=== PATIENT | female | born 1945 | race Caucasian/White ===

== ENCOUNTER 2016-11-06 16:01 | Emergency (ER) | payer MEDICARE, OTHER ==
[~2016-11-06] VITALS: Ht 162.6 cm; Wt 84.8 kg
[~2016-11-06 16:01] MED LIST: ALBUTEROL2.5 MG/3 M INH; ASPIR 8181 MG PO; AZITHROMYCIN250 MG PO; BUDEPRION SR150 MG PO; CELEXA40 MG PO; CIPRO500 MG PO; CLONAZEPAM1 MG PO; DIFLUCAN150 MG PO; EPIPEN JR0.15 MG/0.; ESTRADIOL0.5 MG PO; FLAGYL500 MG PO; GABAPENTIN300 MG PO; GEMFIBROZIL600 MG PO; IBUPROFEN600 MG PO; IPRAT-ALBUT 0.5-3 ML INH; MAGNESIUM OXID500 MG PO; MIRAPEX1.5 MG PO; MULTI VITAMIN1 EACH PO; NITROGLYCERIN0.4 MG SL; NORCO 5-325 TA1 EACH PO; OXYCODONE-ACET1 EAC1 PO; PERCOCET 5-3251 EACH PO; PREDNISONE20 MG PO; PROAIR HFA8.5 GM IH; PROVERA2.5 MG PO; SEPTRA DS TABL1 EACH PO; TIROSINT100 MCG PO; ZESTORETIC PO
[2017-02-09] MEDS ORDERED: GLIPIZIDE ER5 MG PO (06:07)
== END 2016-11-06 16:16 | disposition home or self-care (01) ==
LOC: ED 16:01
DX: M25.562 Pain in left knee (principal); Z00.8 Encounter for other general examination

== ENCOUNTER 2016-11-22 16:41 | Emergency (ER) | payer MEDICARE, OTHER ==
[~2016-11-22] VITALS: Ht 162.6 cm; Wt 84.8 kg
[2016-11-22] MEDS ORDERED: NORCO 5-325 TA1 EACH PO (19:43)
[2016-11-22] MEDS ORDERED: GENTAMICIN SULFA5 ML OD (19:43)
[2016-11-23] MEDS ORDERED: ERYTHROMYCIN1 GM OP (10:18)
[2016-11-23] MEDS ORDERED: PERCOCET 5-3251 EACH PO (10:18)
[2017-02-09] MEDS ORDERED: GLIPIZIDE ER5 MG PO (06:07)
== END 2016-11-22 17:00 | disposition home or self-care (01) ==
LOC: ED 16:41
DX: H57.11 Ocular pain, right eye (principal); Z00.8 Encounter for other general examination

== ENCOUNTER 2016-11-22 17:45 | Emergency (ER) | payer MEDICARE, OTHER ==
[~2016-11-22] VITALS: Ht 162.6 cm; Wt 84.8 kg
[2016-11-22] MEDS ORDERED: NORCO 5-325 TA1 EACH PO (19:43)
[2016-11-22] MEDS ORDERED: GENTAMICIN SULFA5 ML OD (19:43)
[2016-11-23] MEDS ORDERED: ERYTHROMYCIN1 GM OP (10:18)
[2016-11-23] MEDS ORDERED: PERCOCET 5-3251 EACH PO (10:18)
[2017-02-09] MEDS ORDERED: GLIPIZIDE ER5 MG PO (06:07)
== END 2016-11-22 19:51 | disposition home or self-care (01) ==
LOC: ED 17:45
DX: H57.11 Ocular pain, right eye (principal); J45.909 Unspecified asthma, uncomplicated; I10 Essential (primary) hypertension; E03.9 Hypothyroidism, unspecified; F17.200 Nicotine dependence, unspecified, uncomplicated; Z90.49 Acquired absence of other specified parts of digestive tract; Z90.710 Acquired absence of both cervix and uterus; Z91.030 Bee allergy status; Z88.8 Allergy status to other drugs, medicaments and biological substances; Z79.899 Other long term (current) drug therapy
CPT/HCPCS: 99283

== ENCOUNTER 2016-11-23 09:12 | Emergency (ER) | payer MEDICARE, OTHER ==
[~2016-11-23] VITALS: Ht 162.6 cm; Wt 84.8 kg
[~2016-11-23 09:12] MED LIST changes: +GENTAMICIN SULFA5 ML OD
[2016-11-23] MEDS ORDERED: PERCOCET 5-3251 EACH PO (10:18)
[2016-11-23] MEDS ORDERED: ERYTHROMYCIN1 GM OP (10:18)
[2017-02-09] MEDS ORDERED: GLIPIZIDE ER5 MG PO (06:07)
== END 2016-11-23 10:27 | disposition home or self-care (01) ==
LOC: ED 09:12
DX: S05.01XA Injury of conjunctiva and corneal abrasion without foreign body, right eye, initial encounter (principal); I10 Essential (primary) hypertension; E03.9 Hypothyroidism, unspecified; F17.200 Nicotine dependence, unspecified, uncomplicated; Z90.49 Acquired absence of other specified parts of digestive tract; Z90.710 Acquired absence of both cervix and uterus; Z91.038 Other insect allergy status; Z79.2 Long term (current) use of antibiotics; Z79.899 Other long term (current) drug therapy; Z88.8 Allergy status to other drugs, medicaments and biological substances; X58.XXXA Exposure to other specified factors, initial encounter
CPT/HCPCS: 99283

== ENCOUNTER 2018-08-20 17:31 | Emergency (ER) | payer MEDICARE, OTHER ==
[~2018-08-20] VITALS: Ht 162.6 cm; Wt 89.4 kg
[~2018-08-20 17:31] MED LIST changes: +ERYTHROMYCIN1 GM OP; +GLIPIZIDE ER5 MG PO
--- OUTSIDE RECORDS SUMMARY | 2018-08-20 17:34 | XMS ---
PreManage Notification: ALFREDO CUELLAR Security Insurance Administrator Events No recent Security Events currently on file CRITERIA MET - Group Notification - PDMP CARE PROVIDERS Mary Baker MD Primary Care 03/29/2008-Current PHONE: Unknown Aj Zazueta Current PHONE: Unknown [facility] Current Orthopedic Surgery \T\ [facility] PHONE: Unknown Shawn has no Care Guidelines for this patient. E.D. VISIT COUNT (12 MO.) 1 [facility] TOTAL 1 NOTE: Visits indicate total known visits. ED/UCC VISIT TRACKING (12 MO.) 08/20/2018 17:32 [facility] TYPE: Emergency COMPLAINT: - FALL/LEFT KNEE PAIN INPATIENT VISIT TRACKING (12 MO.) No inpatient visits to display in this time frame [id number]
[2018-08-20] MEDS ORDERED: NORCO 5-325 TA1 EACH PO (18:46)
== END 2018-08-20 19:05 | disposition home or self-care (01) ==
LOC: ED 17:31
DX: S89.92XA Unspecified injury of left lower leg, initial encounter (principal); I10 Essential (primary) hypertension; E03.9 Hypothyroidism, unspecified; F17.200 Nicotine dependence, unspecified, uncomplicated; Z90.49 Acquired absence of other specified parts of digestive tract; Z90.710 Acquired absence of both cervix and uterus; Z91.030 Bee allergy status; Z88.8 Allergy status to other drugs, medicaments and biological substances; Z79.899 Other long term (current) drug therapy; W18.30XA Fall on same level, unspecified, initial encounter
CPT/HCPCS: 73560; 96372; 99283-25; J1170

== ENCOUNTER 2018-09-04 14:31 | Emergency (ER) | payer MEDICARE, OTHER ==
[~2018-09-04] VITALS: Ht 162.6 cm; Wt 89.4 kg
--- OUTSIDE RECORDS SUMMARY | 2018-09-04 14:34 | XMS ---
PreManage Notification: ALFREDO CUELLAR Security Manager Express Events No recent Security Events currently on file CRITERIA MET - Group Notification - PDMP - [facility] - 2 Visits in 30 Days CARE PROVIDERS Mary Baker MD Primary Care 03/29/2008-Current PHONE: Unknown Aj Zazueta Current PHONE: Unknown [facility] Current Orthopedic Surgery \T\ F[facility]ure Clinic PHONE: Unknown Shawn has no Care Guidelines for this patient. E.D. VISIT COUNT (12 MO.) 2 [facility] TOTAL 2 NOTE: Visits indicate total known visits. ED/UCC VISIT TRACKING (12 MO.) 09/04/2018 14:31 [facility] TYPE: Emergency COMPLAINT: - FALL 08/20/2018 17:32 [facility] TYPE: Emergency COMPLAINT: - FALL/LEFT KNEE PAIN DIAGNOSES: - Nicotine dependence, unspecified, uncomplicated - Allergy status to other drugs, medicaments and biological substances status - Unspecified injury of left lower leg, initial encounter - Other oil heaterman (current) drug therapy - Fall on same level, unspecified, initial encounter - Acquired absence of both cervix and uterus - Hypothyroidism, unspecified - Acquired absence of other specified parts of digestive tract - Bee allergy status - Pain in left knee - Essential (primary) hypertension INPATIENT VISIT TRACKING (12 MO.) No inpatient visits to display in this time frame [id number]
[2018-09-04] MEDS ORDERED: PERCOCET 5-3251 EACH PO (17:43)
== END 2018-09-04 18:10 | disposition home or self-care (01) ==
LOC: ED 14:31
DX: S46.912A Strain of unspecified muscle, fascia and tendon at shoulder and upper arm level, left arm, initial encounter (principal); S80.02XA Contusion of left knee, initial encounter; S80.01XA Contusion of right knee, initial encounter; I10 Essential (primary) hypertension; F17.200 Nicotine dependence, unspecified, uncomplicated; E03.9 Hypothyroidism, unspecified; Z90.49 Acquired absence of other specified parts of digestive tract; Z90.710 Acquired absence of both cervix and uterus; Z88.8 Allergy status to other drugs, medicaments and biological substances; Z91.030 Bee allergy status; W10.9XXA Fall (on) (from) unspecified stairs and steps, initial encounter
CPT/HCPCS: 70450; 73030; 73560; 96372; 99284-25; J1885

== ENCOUNTER 2019-04-03 04:02 | Emergency (ER) | payer MEDICARE, OTHER ==
[~2019-04-03] VITALS: Ht 162.6 cm; Wt 89.4 kg
[~2019-04-03 04:02] MED LIST changes: +AMITRIPTYLINE150 MG PO; +CELEBREX200 MG PO; +CELECOXIB200 MG PO; +DULOXETINE HCL30 MG PO; +EFFEXOR XR75 MG PO; +LEVOTHYROXINE100 MCG PO; +LIPITOR10 MG PO; +LISINOPRIL-HCT1 EACH PO; +MIRAPEX ER1.5 MG PO; +NALTREXONE HCL5 GM PO; +NICORETTE4 M2 BUCCAL; +ONDANSETRON HCL4 MG PO; +OXYCODONE HCL5 MG PO; +PANTOPRAZOLE SO40 MG PO; +VENLAFAXINE HC150 MG PO; +VITAMIN D32000 UNI1 PO
--- OUTSIDE RECORDS SUMMARY | 2019-04-03 04:04 | XMS ---
PreManage Notification: ALFREDO CUELLAR Security Crop Research Scientist Events No recent Security Events currently on file CRITERIA MET - Group Notification - [facility] - Has [facility] Guidelines - PDMP CARE PROVIDERS Artemio Nielson Internal Medicine: Pulmonary Disease 09/05/2018-Current PHONE: Unknown Mary Baker MD Primary Care 03/29/2008-Current PHONE: Unknown Aj Zazueta MD PHONE: Unknown [facility] Current Orthopedic Surgery \T\ [facility] PHONE: Unknown Shawn has no Care Guidelines for this patient. Care History Medical/Surgical 09/05/[address] [facility] - Patient is currently established with [facility]. If patient is seen in the ED during business hours. Please contact CHWs at [facility]. Care Recommendation: This patient has had 5 or more Emergency Department visits in the last 12 months.\T\nbsp; Patient requires education on the scope and purpose of the ED as an acute care provider not a Primary Care Provider and should not be utilized for chronic conditions.\T\nbsp; These are guidelines and the provider should exercise clinical judgment when providing care. E.D. VISIT COUNT (12 MO.) 3 [facility]. TOTAL 3 NOTE: Visits indicate total known visits. ED/UCC VISIT TRACKING (12 MO.) 04/03/2019 04:02 [facility] TYPE: Emergency COMPLAINT: - FALL 09/04/2018 14:31 [facility] TYPE: Emergency COMPLAINT: - FALL DIAGNOSES: - Contusion of left knee, initial encounter - Pain in right knee - Fall (on) (from) unspecified stairs and steps, init encntr - Acquired absence of both cervix and uterus - Nicotine dependence, unspecified, uncomplicated - Strain unsp musc/fasc/tend at shldr/up arm, left arm, init - Allergy status to oth drug/meds/biol subst status - Essential (primary) hypertension - Contusion of right knee, initial encounter - Acquired absence of other specified parts of digestive tract - Bee allergy status - Hypothyroidism, unspecified 08/20/2018 17:32 [facility] TYPE: Emergency COMPLAINT: - FALL/LEFT KNEE PAIN DIAGNOSES: - Nicotine dependence, unspecified, uncomplicated - Allergy status to oth drug/meds/biol subst status - Unspecified injury of left lower leg, initial encounter - Other shelter (current) drug therapy - Fall on same level, unspecified, initial encounter - Acquired absence of both cervix and uterus - Hypothyroidism, unspecified - Acquired absence of other specified parts of digestive tract - Bee allergy status - Pain in left knee - Essential (primary) hypertension INPATIENT VISIT TRACKING (12 MO.) No inpatient visits to display in this time frame [id number]
[2019-04-03] MEDS ORDERED: NORCO 5-325 TA1 EACH PO (04:35)
== END 2019-04-03 04:45 | disposition home or self-care (01) ==
LOC: ED 04:02
DX: S93.402A Sprain of unspecified ligament of left ankle, initial encounter (principal); X50.9XXA Other and unspecified overexertion or strenuous movements or postures, initial encounter; I10 Essential (primary) hypertension; J45.909 Unspecified asthma, uncomplicated; E03.9 Hypothyroidism, unspecified; F17.200 Nicotine dependence, unspecified, uncomplicated; Z88.8 Allergy status to other drugs, medicaments and biological substances; Z91.030 Bee allergy status; Z79.899 Other long term (current) drug therapy
CPT/HCPCS: 73610; 99283

== ENCOUNTER 2019-04-07 19:01 | Emergency (ER) | payer MEDICARE, OTHER ==
[~2019-04-07] VITALS: Ht 162.6 cm; Wt 89.4 kg
--- OUTSIDE RECORDS SUMMARY | 2019-04-07 19:04 | XMS ---
PreManage Notification: ALFREDO CUELLAR Security Communications Engineering Technician Events No recent Security Events currently on file CRITERIA MET - Group Notification - [facility] - Has Care Guidelines - PDMP - [facility] - 2 Visits in 30 Days CARE PROVIDERS Artemio Nielson Internal Medicine: Pulmonary Disease 09/05/2018-Current PHONE: Unknown Mary Baker MD Primary Care 03/29/2008-Current PHONE: Unknown Aj Zazueta MD PHONE: Unknown [facility] Current Orthopedic Surgery \T\ [facility] PHONE: Unknown Shawn has no Care Guidelines for this patient. Care History Medical/Surgical 04/03/2019 [facility] Appropriate use of ED.\T\nbsp;\T\nbsp;Patient\T\nbsp;still needs to schedule follow\T\nbsp;up with PCP. \T\nbsp; 09/05/2018 [facility] - Patient is currently established with [facility]. If patient is seen in the ED during business hours. Please contact CHWs at [facility]. Care Recommendation: This patient has had 5 [...] providing care. E.D. VISIT COUNT (12 MO.) 4 [facility]. TOTAL 4 NOTE: Visits indicate total known visits. ED/UCC VISIT TRACKING (12 MO.) 04/07/2019 19:01 [facility] TYPE: Emergency COMPLAINT: - LEFT KNEE PAIN/INJURY 04/03/2019 04:02 [facility] TYPE: Emergency COMPLAINT: - FALL DIAGNOSES: - Essential (primary) hypertension - Other long goods drier (current) drug therapy - Hypothyroidism, unspecified - Other and unspecified ovrexrtn or strnous move/pstr, init - Pain in left ankle and joints of left foot - Sprain of unspecified ligament of left ankle, init encntr - Unspecified asthma, uncomplicated - Allergy status to oth drug/meds/biol subst status - Nicotine dependence, unspecified, uncomplicated - Bee allergy status 09/04/2018 14:31 [facility] TYPE: Emergency [...] allergy status - Hypothyroidism, unspecified 08/20/2018 17:[address] [facility] TYPE: Emergency COMPLAINT: - FALL/LEFT KNEE PAIN DIAGNOSES: - Nicotine dependence, unspecified, uncomplicated - Allergy status to oth drug/meds/biol subst status - Unspecified injury of left lower leg, initial encounter - Other group home (current) drug therapy - Fall on same level, unspecified, initial encounter - Acquired absence of both cervix and uterus - Hypothyroidism, unspecified - Acquired absence of other specified parts of digestive tract - Bee allergy status - Pain in left knee - Essential (primary) hypertension INPATIENT VISIT TRACKING (12 MO.) No inpatient visits to display in this time frame [id number]
[2019-04-07] MEDS ORDERED: HYDROCHLOROTH12.5 M1 PO (19:24)
== END 2019-04-07 20:29 | disposition home or self-care (01) ==
LOC: ED 19:01
DX: S80.02XA Contusion of left knee, initial encounter (principal); W18.30XA Fall on same level, unspecified, initial encounter; I10 Essential (primary) hypertension; E03.9 Hypothyroidism, unspecified; F17.200 Nicotine dependence, unspecified, uncomplicated; Z88.8 Allergy status to other drugs, medicaments and biological substances; Z91.030 Bee allergy status; Z79.899 Other long term (current) drug therapy
CPT/HCPCS: 73560; 99283-25

== ENCOUNTER 2019-09-14 18:09 | Emergency (ER) | payer MEDICARE, OTHER ==
[~2019-09-14] VITALS: Ht 162.6 cm; Wt 84.8 kg
--- OUTSIDE RECORDS SUMMARY | ~2019-09-14 | XMS | Encounter Summary ---
Demographics + + + | Address | [address] | | | [place] [address] | + + + | Home Phone | | + + + | Preferred Language | Unknown | + + + | Marital Status | | + + + | Hoahaoism Affiliation | [id number] | + + + | Race | Unknown | + + + | Ethnic Group | Unknown | + + + Author + + + | Author | [facility] | | | and [place] | + + + | Organization | [facility] | | | and [place] | + + + | Address | Unknown | + + + | Phone | Unavailable | + + + Support + + +---------+ + | Name | Relationship | Address | Phone | + + +---------+ + | Kamille Doshi | ECON | Unknown | | + + +---------+ + | Jordi Hogue | ECON | Unknown | | + + +---------+ + Care Team Providers + +------+ + | Care Insulation Worker Furnace Installer Name | Role | Phone | + +------+ + | Isidra Renteria PA-C | PCP | | + +------+ + Encounter Details +--------+ + + + + | Date | Type | Department | Care Team | Description | +--------+ + + + + | 03/18/ | Hospital | [facility] | Lionel Michelle, | S/P lumbar fusion | | 2017 | Encounter | [facility] [address] | PA-C [address] | | | | | [place] | [address] [place] | | | | | [place] [address] | [place] [address] | | | | | [phone] | [phone] | | | | | | | | +--------+ + + + + Social History + + + +--------+ + | Tobacco Use | Types | Packs/Day | Years | Date | | | | | Used | | + + + +--------+ + | Former Smoker | Cigarettes | 0.5 | 6 | 01/24/2009 - | | | | | | 01/24/2015 | + + + +--------+ + + +---+---+---+ | Smokeless Tobacco: | | | | | Never Used | | | | + +---+---+---+ + + +---------+ + | Alcohol Use | Drinks/Week | oz/Week | Comments | + + +---------+ + | Yes | 0 Standard drinks | 0.0 | couple times per | | | or equivalent | | year | + + +---------+ + + + + | Sex Assigned at | Date Recorded | | | | + + + | Not on file | | + + + documented as of this encounter Medications at Time of Discharge + + + +---------+ + + | Medication | Sig | Dispensed | Refills | Start | End Date | | | | | | Date | | + + + +---------+ + + | atorvaSTATin | Take 40 mg by mouth | | 0 | 08/15/19 | | | (LIPITOR) 40 mg | nightly. | | | 16 | | | tablet | | | | | | + + + +---------+ + + | citalopram | Take 20 mg by mouth | | 0 | | | | (CELEXA) 40 mg | Daily. | | | | | | tablet | | | | | | + + + +---------+ + + | diazePAM (VALIUM) | Take 1 tablet by | 90 | 0 | 12/26/19 | | | 5 mg tablet | mouth every 6 hours | tablet | | 16 | | | | as needed. | | | | | + + + +---------+ + + | DULoxetine | Take 1 capsule by | 30 | 2 | 03/18/19 | | | (CYMBALTA) [address] | mouth Daily. | capsule | | 17 | | | capsule | | | | | | + + + +---------+ + + | EPINEPHrine | Inject 0.3 mg into | | 0 | | | | (EPIPEN) 0.3 mg/0.3 | the muscle as needed | | | | | | mL injection | for Anaphylaxis. | | | | | + + + +---------+ + + | estradiol | Take 0.5 mg by mouth | | 0 | | | | (ESTRACE) 0.5 mg | Daily. | | | | | | tablet | | | | | | + + + +---------+ + + | fentaNYL | Place 1 patch onto | 10 | 1 | 03/18/19 | | | (DURAGESIC) 50 | the skin every 72 | patch | | 17 | | | mcg/hr | hours. | | | | | + + + +---------+ + + | gemfibrozil | Take 600 mg by mouth | | 0 | | | | (LOPID) 600 mg | Daily. | | | | | | tablet | | | | | | + + + +---------+ + + | | Take 25 mg by mouth | | 0 | 08/19/20 | | | hydrochlorothiazide | Daily. | | | 16 | | | 25 mg tablet | | | | | | + + + +---------+ + + | lactulose 10 g/15 | Take 30 mLs by mouth | 240 mL | 2 | 12/05/19 | | | mL solution | 2 times daily. For | | | 16 | | | | constipation | | | | | + + + +---------+ + + | levothyroxine | Take 100 mcg by | | 0 | | | | (SYNTHROID, | mouth Daily. | | | | | | LEVOTHROID) 100 mcg | | | | | | | tablet | | | | | | + + + +---------+ + + | | Take 1 tablet by | | 0 | | | | lisinopril-hydrochlo | mouth Daily. | | | | | | rothiazide | | | | | | | (PRINZIDEZESTORETIC | | | | | | | ) 10-12.5 MG per | | | | | | | tablet | | | | | | + + + +---------+ + + | nitroglycerin | Place 0.4 mg under | | 0 | | | | (NITROSTAT) 0.4 mg | the tongue every 5 | | | | | | SL tablet | minutes as needed | | | | | | | for Chest pain | | | | | | | (Place 1 tablet | | | | | | | under the tounge at | | | | | | | onset chest pain. | | | | | | | May repeat in 5 | | | | | | | minutes. Call 911 if | | | | | | | not resolved afer | | | | | | | 2nd dose.). | | | | | + + + +---------+ + + | | Take 1-2 tablets by | 120 | 1 | 03/18/19 | | | oxyCODONE-acetaminop | mouth every 4 hours | tablet | | 17 | | | hen (PERCOCET) | as needed for Pain. | | | | | | 10-325 mg per tablet | | | | | | + + + +---------+ + + | pramipexole | Take 0.5 mg by | | 0 | | | | (MIRAPEX) 0.5 MG | mouth. 3 tablets at | | | | | | tablet | night | | | | | + + + +---------+ + + | ranitidine | Take 300 mg by mouth | | 0 | 08/21/19 | | | (ZANTAC) 300 MG | Daily. | | | 16 | | | tablet | | | | | | + + + +---------+ + + documented as of this encounter Plan of Treatment Not on filedocumented as of this encounter Procedures + +--------+ + + + | Procedure Name | Priori | Date/Time | Associated Diagnosis | Comments | | | ty | | | | + +--------+ + + + | XR LUMBAR SPINE 2 OR | Routin | 03/18/2016 | S/P lumbar fusion | Results for this | | 3 VW | e | 11:35 AM | | procedure are in the | | | | PST | | results section. | + +--------+ + + + documented in this encounter Results XR Lumbar Spine 2 or 3 Vw (03/18/2016 11:35 AM PST) + + | Specimen | + + | | + + + + + | Narrative | Performed At | + + + | XR LUMBAR SPINE 2 OR 3 VW 03/18/2016 11:35 AM HISTORY: Postop. | [facility] | | COMPARISON: 12/26/2015 FINDINGS: Mild left curvature of the | [facility] | | lumbar spine is seen. There is stable hardware for posterior fusion | [facility] | | from L2 through S1 with spacer hardware at these levels. The hardware | - IMAGING | | are intact. Mild to moderate spondylosis is observed. Minimal | | | anterolistheses are observed of L2 over L3 and L4 over L5. Bone | | | mineralization is normal. Vertebral body height are preserved with no | | | evidence for compression fractures. Disc height are maintained. | | | Facet joints are intact. Visualized ribs and pelvic osseous | | | structures show no acute findings. Cholecystectomy clips are present. | | | IMPRESSION - Stable posterior fusion from L2 through S1. | | | Dictated and Signed by: Gabe Acharya MD Electronically signed: | | | 03/18/2016 12:00 PM | | + + + + + | Procedure Note | + + | Serge, Rad Results In - 03/18/2016 12:03 PM PST XR LUMBAR SPINE 2 OR 3 VW 03/18/2016 | | 11:35 AMHISTORY: Postop.COMPARISON: 12/26/2015FINDINGS:Mild left curvature of the lumbar | | spine is seen. There is stable hardware forposterior fusion from L2 through S1 with | | spacer hardware at these levels. Thehardware are intact. Mild to moderate spondylosis is | | observed. Minimalanterolistheses are observed of L2 over L3 and L4 over L5. Bone | | mineralizationis normal. Vertebral body height are preserved with no evidence for | | compressionfractures. Disc height are maintained. Facet joints are intact. Visualized | | ribsand pelvic osseous structures show no acute findings. Cholecystectomy clips | | arepresent.IMPRESSION -Stable posterior fusion from L2 through S1.Dictated and Signed | | by: Gabe Acharya MD Electronically signed: 03/18/2016 12:00 PM | |anterolistheses are observed of L2 over L3 and L4 over L5. Bone mineralization | |is normal. Vertebral body height are preserved with no evidence for compression | |fractures. Disc height are maintained. Facet joints are intact. Visualized ribs | |and pelvic osseous structures show no acute findings. Cholecystectomy clips are | |present. | | | |IMPRESSION - | |Stable posterior fusion from L2 through S1. | | | |Dictated and Signed by: Gabe Acharya MD | | Electronically signed: 03/18/2016 12:00 PM | + + + + + + + | Performing | Address | City/State/Zipcode | Phone Number | | Organization | | | | + + + + + | [facility] | [address] | [place] | [phone] | | [facility] | | [address] | | | - IMAGING | | | | + + + + + documented in this encounter Visit Diagnoses + + | Diagnosis | + + | S/P lumbar fusion Arthrodesis status | + + documented in this encounter"
--- OUTSIDE RECORDS SUMMARY | ~2019-09-14 | XMS | Encounter Summary ---
Demographics + + + | Address | [address] | | | [place] [address] | + + + | Home Phone | | + + + | Preferred Language | Unknown | + + + | Marital Status | | + + + | Holiness Affiliation | [id number] | + + + | Race | Unknown | + + + | Ethnic Group | Unknown | + + + Author + + + | Author | [facility] | | | and [place] | + + + | Organization | [facility] | | | and [place] | [...] Team Providers + +------+ + | Care Advertising Display Rotator Name | Role | Phone | + +------+ + | Isidra Renteria PA-C | PCP | | + +------+ + Reason for Referral Evaluate & Treat (Routine) +--------+ + + + + + | Status | Reason | Specialty | Diagnoses / | Referred By | Referred To | | | | | Procedures | Contact | Contact | +--------+ + + + + + | Closed | Specialty | Pain Medicine | Diagnoses | Alexandrea, | Jayant, | | | Services | | S/P lumbar | Riccardo Harvey DO | Raf Reyes DO | | | Required | | fusion | [address] | [address] | | | | | Osteoarthrit | [address] | [address] | | | | | is of spine | [place], [place] | [address] | | | | | with | [id number] | [place] | | | | | radiculopath | Phone: | [phone] | | | | | y, lumbar | [phone] | Phone: | | | | | region | Fax: | [phone] | | | | | | [phone] | Fax: | | | | | | | [phone] | +--------+ + + + + + Reason for Visit +---------+ + | Reason | Comments | +---------+ + | Post Op | 3m PO | +---------+ + Encounter Details +--------+---------+ + + + | Date | Type | Department | Care Team | Description | +--------+---------+ + + + | 03/18/ | Office | [facility] | Riccardo Lechuga, | S/P lumbar fusion | | 2017 | Visit | NEUROSURGERY [address] | DO [address] | (Primary Dx); | | | | [address] | [address] [place], [place] | Osteoarthritis of | | | | [place], [place] | [address] | spine with | | | | [address] | | radiculopathy, | | | | [phone] | | lumbar region | +--------+---------+ + + + Social History + + [...] + + documented as of this encounter Last Filed Vital Signs + + + + + | Vital Sign | Reading | Time Taken | Comments | + + + + + | Blood Pressure | 125/69 | 03/18/2016 12:43 PM | | | | | PST | | + + + + + | Pulse | 78 | 03/18/2016 12:43 PM | | | | | PST | | + + + + + | Temperature | - | - | | + + + + + | Respiratory Rate | 16 | 03/18/2016 12:43 PM | | | | | PST | | + + + + + | Oxygen Saturation | - | - | | + + + + + | Inhaled Oxygen | - | - | | | Concentration | | | | + + + + + | Weight | 96.2 kg (212 lb) | 03/18/2016 12:43 PM | | | | | PST | | + + + + + | Height | 162.6 cm (5' 4") | 03/18/2016 12:43 PM | | | | | PST | | + + + + + | Body Mass Index | 36.39 | 03/18/2016 12:43 PM | | | | | PST | | + + + + + documented in this encounter Patient Instructions Patient Instructions Riccardo Lechuga DO - 03/18/2016 1:26 PM PSTPlease undergo new x-rays of the lumbar spine in 3 and 9 months. Please follow-up with [facility]. Please follow-up with me as needed. documented in this encounter Progress Notes Riccardo Lechuga DO - 03/18/2016 1:27 PM PSTFormatting of this note might be different fro m the original. Riccardo Lechuga DO [address], [address] [place] [address] FAX: NEUROSURGERY FOLLOW-UP CHIEF COMPLAINT: Chief Complaint Patient presents with Post Op 3m PO HISTORY OF PRESENT ILLNESS: The patient is a 71 y.o. female that had a L2-S1 fusion by me for back pain, leg pain, and leg weakness around 3 months ago . She returns and overall is doing fairly well. The patient complains of ongoing back and leg pain, but her strength and ability to walk is much improved. The patient is still taking narcotics for pain managemen t. The patient has been walking as directed and has tried to remain active. Overall, the p atient is pleased with her improvement, but is hoping for more. PAST MEDICAL HISTORY: Past Medical History Diagnosis Date Disc degeneration, lumbar Depression Lumbago Arthritis Urge incontinence Bone spur Right shoulder Impingement syndrome of right shoulder Chronic back pain Hypertension Hyperlipidemia Borderline diabetes PAST SURGICAL HISTORY: Past Surgical History Procedure Laterality Date Cholecystectomy 09/2013 Hammer toe surgery Left 2012 Appendectomy 2010 Parathyroidectomy 2007 [place] Bladder suspension 2006 section 1976 [place] Hysterectomy Lumbar spine surgery Right 12/01/2015 Procedure: L2-3, L3-4, L4-5 Lateral Anterior Interbody Fusion w/ L5-S1 Transforaminal Lum bar Interbody Fusion; Surgeon: Riccardo Lechuga DO; Location: [facility] MAIN OR CURRENT MEDICATIONS: Current Outpatient Prescriptions Medication Sig Dispense Refill atorvaSTATin (LIPITOR) 40 mg tablet Take 40 mg by mouth nightly. citalopram (CELEXA) 40 mg tablet Take 20 mg by mouth Daily. diazePAM (VALIUM) 5 mg tablet Take 1 tablet by mouth every 6 hours as needed. 90 tablet 0 EPINEPHrine (EPIPEN) 0.3 mg/0.3 mL injection Inject 0.3 mg into the muscle as needed fo r Anaphylaxis. estradiol (ESTRACE) 0.5 mg tablet Take 0.5 mg by mouth Daily. fentaNYL (DURAGESIC) 50 mcg/hr Place 1 patch onto the skin every 72 hours. 10 patch 1 gemfibrozil (LOPID) 600 mg tablet Take 600 mg by mouth Daily. hydrochlorothiazide 25 mg tablet Take 25 mg by mouth Daily. lactulose 10 g/15 mL solution Take 30 mLs by mouth 2 times daily. For constipation 240 mL 2 levothyroxine (SYNTHROID, LEVOTHROID) 100 mcg tablet Take 100 mcg by mouth Daily. lisinopril-hydrochlorothiazide (PRINZIDE,ZESTORETIC) 10-12.5 MG per tablet Take 1 table t by mouth Daily. nitroglycerin (NITROSTAT) 0.[address] 0.4 mg under the tongue every 5 minute s as needed for Chest pain (Place 1 tablet under the tounge at onset chest pain. May repeat in 5 minutes. Call 911 if not resolved afer 2nd dose.). oxyCODONE-acetaminophen (PERCOCET) 10-325 mg per tablet Take 1-2 tablets by mouth every 4 hours as needed for Pain. 120 tablet 1 pramipexole (MIRAPEX) 0.5 MG tablet Take 0.5 mg by mouth. 3 tablets at night ranitidine (ZANTAC) 300 MG tablet Take 300 mg by mouth Daily. No current facility-administered medications for this visit. ALLERGIES: Allergies Allergen Reactions Metformin Swelling Difficulty swallowing. "Whole body swelled" SOCIAL HISTORY: The patient reports that she quit smoking about 13 months ago. Her smoking use included Ci garettes. She started smoking about 7 years ago. She has a 3 pack-year smoking history. She has never used smokeless tobacco. She reports that she drinks alcohol. She reports that she does not use illicit drugs. FAMILY HISTORY: Family History Problem Relation Age of Onset Lung cancer Mother 80 Colon cancer Daughter 40 Heart disease Paternal Grandfather 90 Cancer Paternal Aunt Heart disease Other Uncle No Known Problems Father No Known Problems Paternal Grandmother No Known Problems Maternal Grandfather No Known Problems Maternal Grandmother INTERIM PHYSICAL EXAMINATION: Blood pressure 125/69, pulse 78, resp. rate 16, height 1.626 m (5' 4"), weight 96.163 kg (2 12 lb), not currently . Body mass index is 36.37 kg/(m^2). GENERAL: Rashad Crane is in no acute distress with unlabored respirations. SPINE: The patient s incisions are healing well without drainage, significant erythema, o r discharge EXTREMITIES: No lower extremity edema. NEUROLOGICAL EXAMINATION: MENTAL STATUS: The patient is awake, alert, and oriented. She follows simple and complex commands MOTOR EXAM: Motor strength is 5/5. This is improved from the preoperative exam. SENSORY EXAM: The sensory examination diminished from the preoperative exam. Bilateral leg pain in no specific distribution. REFLEXES: Reflexes are unchanged from her preoperative history and physical. RADIOGRAPHIC REVIEW: The patient s postoperative x-rays show stable instrumentation and alignment and were rev iewed with the patient today. There have been no interval changes since the immediate posto perative films. Complete fusion has yet occurred, but this is normal and would not be expec micah at this time. ASSESSMENT: S/P L2-S1 fusion: Encounter Diagnoses Name Primary? S/P lumbar fusion Yes Osteoarthritis of spine with radiculopathy, lumbar region Past Medical History Diagnosis Date Disc degeneration, lumbar Depression Lumbago Arthritis Urge incontinence Bone spur Right shoulder Impingement syndrome of right shoulder Chronic back pain Hypertension Hyperlipidemia Borderline diabetes PLAN: Overall, the patient is doing fairly well. I was pleased to see at least some further impr ovement and expect more improvement with time. This was discussed with the patient today. I have increased the patient s activities further, and I would like the patient to continu e to advance with activities as tolerated and as directed. She will undergo repeat x-ray of the back in 3 and 9 months and follow-up with me as needed . I will refer to [facility] for ongoing pain management. ELECTRONICALLY SIGNED BY: Riccardo Lechuga DO, 03/18/2016 13:32 documented in this en counter Plan of Treatment + +---------+--------+ + + | Name | Type | Priori | Associated Diagnoses | Order Schedule | | | | ty | | | + +---------+--------+ + + | XR Lumbar Spine 2 or | Imaging | Routin | S/P lumbar fusion | Expected: | | 3 Vw | | e | | 03/18/2016, Expires: | | | | | | 03/18/2017 | + +---------+--------+ + + | XR Lumbar Spine 2 or | Imaging | Routin | S/P lumbar fusion | Expected: 06/18/2016 | | 3 Vw | | e | Osteoarthritis of | (Approximate), | | | | | spine with | Expires: 03/18/2017 | | | | | radiculopathy, | | | | | | lumbar region | | + +---------+--------+ + + | XR Lumbar Spine 2 or | Imaging | Routin | S/P lumbar fusion | Expected: 12/18/2016 | | 3 Vw | | e | Osteoarthritis of | (Approximate), | | | | | spine with | Expires: 03/18/2017 | | | | | radiculopathy, | | | | | | lumbar region | | + +---------+--------+ + + + + +--------+ + + | Name | Type | Priori | Associated Diagnoses | Order Schedule | | | | ty | | | + + +--------+ + + | Pain Clinic, | Outpatient | Routin | S/P lumbar fusion | Ordered: 03/18/2016 | | External - AMB | Referral | e | Osteoarthritis of | | | Referral | | | spine with | | | | | | radiculopathy, | | | | | | lumbar region | | + + +--------+ + + documented as of this encounter Visit Diagnoses + + | Diagnosis | + + | S/P lumbar fusion - Primary Arthrodesis status | + + | Osteoarthritis of spine with radiculopathy, lumbar region | + + documented in this encounter
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
--- OUTSIDE RECORDS SUMMARY | ~2019-09-14 | XMS | Encounter Summary ---
Demographics + + + | Address | [address] | | | [place] [address] | + + + | Home Phone | | + + + | Preferred Language | Unknown | + + + | Marital Status | | + + + | Gnosticism Affiliation | 1041 | + + + | Race | Unknown | + + + | Ethnic Group | Unknown | + + + Author + + + | Author | [facility] | | | and [place] | + + + | Organization | [facility] | | | and [place] [...] Team Providers + +------+ + | Care Air Pollution Specialist Name | Role | Phone | + +------+ + | Isidra Renteria PA-C PCP | | + +------+ + Reason for Visit + +--------+ + | Reason | Onset | Comments | | | Date | | + +--------+ + | Surgery Appointment | 11/23/ | | | | 2015 | | + +--------+ + Encounter Details +--------+ + + + + | Date | Type | Department | Care Team | Description | +--------+ + + + + | 11/23/ | Telephone | [facility] | Riccardo Lechuga, | Surgery Appointment | | 2015 | | [address]ERY [address] | DO [address] | | | | | [address] [facility] [address] | [address] [place], [place] | | | | | [place], [place] | [id number] | | | | | [address] | | | | | | [phone] | | | +--------+ + + + [...] + + documented as of this encounter Miscellaneous Notes Telephone Encounter - Alicia Weems - 11/24/2015 11:24 AM PDTPatient called back sunita graves her surgery date. She was advised that her surgery has not been rescheduled. We were simpl y calling to confirm her pre op appt with Lionel. She will be seen tomorrow 11/24 at 11:00. El ectronically signed by Alicia Weems at 11/24/2015 11:25 AM PDTTelephone Encounter - Lm Null - 11/24/2015 10:13 AM PDTPatient called to verify her surgery schedule. She claim s it was rescheduled and she wants to be sure she has the right day. documented in this encounter Plan of Treatment Not on filedocumented as of this encounter Visit Diagnoses Not on filedocumented in this encounter"
--- OUTSIDE RECORDS SUMMARY | ~2019-09-14 | XMS | Encounter Summary ---
Demographics + + + | Address | [address] | | | [place] [address] | + + + | Home Phone | | + + + | Preferred Language | Unknown | + + + | Marital Status | | + + + | Mormon Affiliation | 1041 | + + + | Race | Unknown | + + + | Ethnic Group | Unknown | + + + Author + + + | Author | [facility] | | | and [place] | + + + | Organization | [facility] | | | and [place] | [...] Team Providers + +------+ + | Care Travel Insurance Agent Name | Role | Phone | + +------+ + | Isidra Renteria PA-C | PCP | | + +------+ + Encounter Details +--------+ + + + + | Date | Type | Department | Care Team | Description | +--------+ + + + + | 03/15/ | Orders Only | [facility] | Gaby Nielson | | | 2019 | | CONVERSION 888 | MD [address] | | | | | [address]GELICA [address]UNIZ | [place] | | | | | [place] | [place] | | | | | [phone] | [phone] | | | | | [phone] | [phone] | | | | | | | [...] | + +--------+ + + + | ECHO INTERPRETATION | Routin | 03/15/2018 | | Results for this | | OF OUTSIDE FILMS | e | 3:03 PM | | procedure are in the | | | | PST | | results section. | + +--------+ + + + documented in this encounter Results ECHO Interpretation of Outside Films (03/15/2018 3:03 PM PST) + + | Specimen | + + | | + + + + + | Impressions | Performed At | + + + | 1. This was a technically difficult study with suboptimal views. 2. | | | The left ventricle is normal in size, wall thickness and hyperdynamic | | | function EF>70%. 3. The right ventricle is normal in size and | | | function. 4. Mild degenerative changes in the mitral and aortic | | | valves. 5. There is no pericardial effusion. | | + + + + + + | Narrative | Performed At | + + + | Patient Name: Rashad Crane Date of : 1945 | | | Performing Physician: Ashley Brown | | | | | | INDICATIONS Chest pain CONCLUSIONS 1. | | | This was a technically difficult study with suboptimal views. 2. The | | | left ventricle is normal in size, wall thickness and hyperdynamic | | | function EF>70%. 3. The right ventricle is normal in size and | | | function. 4. Mild degenerative changes in the mitral and aortic | | | valves. 5. There is no pericardial effusion. FINDINGS -------- | | | ECG rhythm: Sinus rhythm. Study: A 2-dimensional transthoracic | | | echocardiogram with m-mode, spectral and color flow Doppler was | | | perfomed. Study: This was a technically difficult study with | | | suboptimal views. Left Ventricle: Left ventricular systolic function | | | is hyperdynamic with an estimated EF of >70%. Left Ventricle: The | | | left ventricle cavity size is normal. Left Ventricle: Left | | | ventricular wall thickness is normal. Left Ventricle: No regional | | | wall motion abnormalities. Left Ventricle: The diastolic filling | | | pattern is normal for the age of the patient. Right Ventricle: The | | | right ventricle is normal in size and function. Left Atrium: The left | | | atrium is normal in size. Right Atrium: The right atrium is normal | | | in size. Aortic Valve: There is mild aortic valve sclerosis without | | | evidence of stenosis. Aortic Valve: There is no evidence of aortic | | | regurgitation. Aortic Valve: Aortic valve is mildly thickened. | | | Aortic Valve: No CW of the aortic velocity recorded. Mitral Valve: No | | | mitral regurgitation. Mitral Valve: Mild mitral annular | | | calcification present. Tricuspid Valve: The tricuspid valve appears | | | structurally normal. Tricuspid Valve: Pulmonary artery systolic | | | pressure could not be assessed due to the absence of adequate TR jet. | | | Pulmonic Valve: The pulmonic valve was not well visualized. Pulmonic | | | Valve: Mild degenerative changes in the mitral and aortic valves. | | | Pericardium: There is no pericardial effusion. Pericardium: No | | | pleural effusion seen. IVC/Hepatic Veins: The IVC is normal size | | | (1.5-2.5cm) and collapses >50% with sniff, consistent with central | | | venous pressures of 5-10mmHg. Aorta: The aortic root, ascending aorta | | | and aortic arch are normal. MEASUREMENTS Ao asc: | | | 3.34 cm Ao Diam: 2.95 cm Ao sinus: 3.[address] junct: | | | 2.72 cm IVC: 1.93 cm EDV(Teich): 64.49 ml IVSd: 0.92 cm | | | LVIDd: 3.86 cm LVPWd: 0.74 cm LVOT Area: 3.16 cm2 LVOT | | | Diam: 2.00 cm %FS: 37.98 % EF(Teich): 68.84 % ESV(Teich): | | | 20.09 ml LVIDs: 2.39 cm SV(Teich): 44.40 ml RV Major: | | | 7.07 cm RV Minor: 3.40 cm RVIDd: 2.43 cm LVEF MOD A2C: | | | 74.55 % SV MOD A2C: 55.14 ml LVEF MOD A4C: 69.04 % SV MOD | | | A4C: 61.72 ml EF Biplane: 71.47 % LVEDV MOD BP: 81.64 ml | | | LVESV MOD BP: 23.28 ml LVEDV MOD A2C: 73.96 ml LVLd A2C: | | | 8.64 cm LVEDV MOD A4C: 89.39 ml LVLd A4C: 8.73 cm LVESV MOD | | | A2C: 18.81 ml LVLs A2C: 7.33 cm LVESV MOD A4C: 27.67 ml | | | LVLs A4C: 7.01 cm LAESV(A-L): 38.69 ml LAESV Index (A-L): | | | 19.84 ml/m2 LAAs A2C: 14.04 cm2 LAESV A-L A2C: 39.59 ml LALs | | | A2C: 4.22 cm LAAs A4C: 13.72 cm2 LAESV A-L A4C: 35.11 ml | | | LALs A4C: 4.55 cm RAAs: 9.05 cm2 RAESV A-L: 16.00 ml RAESV | | | MOD: 15.27 ml RALs: 4.34 cm TAPSE: 2.43 cm LVOT maxPG: | | | 6.11 mmHg LVOT meanP.16 mmHg LVSI Dopp: 42.31 ml/m2 LVSV | | | Dopp: 82.50 ml LVOT Vmax: 1.23 m/s LVOT Vmean: 0.83 m/s | | | LVOT VTI: 26.06 cm MV A Sander: 0.76 m/s MV Dec Bre[place]: 3.58 | | | m/s2 MV DecT: 214.61 ms MV E Sander: 0.77 m/s MV E/A Ratio: | | | 1.01 MV PHT: 62.23 ms MVA By PHT: 3.53 cm2 Septal e': 0.05 | | | m/s Septal E/e': 14.77 Lateral e': 0.09 m/s Lateral E/e': | | | 8.24 RV s': 0.14 m/s Tubing Mill Setter: [email or web address] Authenticated by: | | | Ashley [facility] Report Date/Time: 03-15-2018 18:9:55 | | + + + + + | Procedure Note | + + | Herman Valentine Conversion - 10/26/2018 2:17 PM PDT Patient Name: Luke Crane of | | : 1945 Performing Physician: Ashley | | [facility] INDICATIONS------ | | -----Chest pain CONCLUSIONS 1. This was a technically difficult study with | | suboptimal views.2. The left ventricle is normal in size, wall thickness and | | hyperdynamic function EF>70%.3. The right ventricle is normal in size and function.4. | | Mild degenerative changes in the mitral and aortic valves.5. There is no pericardial | | effusion. FINDINGS--------ECG rhythm: Sinus rhythm.Study: A 2-dimensional transthoracic | | echocardiogram with m-mode, spectral and color flow Doppler was perfomed.Study: This was | | a technically difficult study with suboptimal views.Left Ventricle: Left ventricular | | systolic function is hyperdynamic with an estimated EF of >70%.Left Ventricle: The left | | ventricle cavity size is normal.Left Ventricle: Left ventricular wall thickness is | | normal.Left Ventricle: No regional wall motion abnormalities.Left Ventricle: The | | diastolic filling pattern is normal for the age of the patient.Right Ventricle: The | | right ventricle is normal in size and function.Left Atrium: The left atrium is normal in | | size.Right Atrium: The right atrium is normal in size.Aortic Valve: There is mild | | aortic valve sclerosis without evidence of stenosis.Aortic Valve: There is no evidence | | of aortic regurgitation.Aortic Valve: Aortic valve is mildly thickened.Aortic Valve: No | | CW of the aortic velocity recorded.Mitral Valve: No mitral regurgitation.Mitral Valve: | | Mild mitral annular calcification present.Tricuspid Valve: The tricuspid valve appears | | structurally normal.Tricuspid Valve: Pulmonary artery systolic pressure could not be | | assessed due to the absence of adequate TR jet.Pulmonic Valve: The pulmonic valve was | | not well visualized.Pulmonic Valve: Mild degenerative changes in the mitral and aortic | | valves.Pericardium: There is no pericardial effusion.Pericardium: No pleural effusion | | seen.IVC/Hepatic Veins: The IVC is normal size (1.5-2.5cm) and collapses >50% with | | sniff, consistent with central venous pressures of 5-10mmHg.Aorta: The aortic root, | | ascending aorta and aortic arch are normal. MEASUREMENTS Ao asc: 3.34 cmAo | | Diam: 2.95 cmAo sinus: 3.[address] junct: 2.72 cmIVC: 1.93 cmEDV(Teich): | | 64.49 mlIVSd: 0.92 cmLVIDd: 3.86 cmLVPWd: 0.74 cmLVOT Area: 3.16 [id number] Diam: | | 2.00 cm%FS: 37.98 %EF(Teich): 68.84 %ESV(Teich): 20.09 mlLVIDs: 2.39 | | cmSV(Teich): 44.40 mlRV Major: 7.07 cmRV Minor: 3.40 cmRVIDd: 2.43 cmLVEF MOD | | A2C: 74.55 %SV MOD A2C: 55.14 mlLVEF MOD A4C: 69.04 %SV MOD A4C: 61.72 mlEF | | Biplane: 71.47 %LVEDV MOD BP: 81.64 mlLVESV MOD BP: 23.28 mlLVEDV MOD A2C: 73.96 | | mlLVLd A2C: 8.64 cmLVEDV MOD A4C: 89.39 mlLVLd A4C: 8.73 cmLVESV MOD A2C: 18.81 | | mlLVLs A2C: 7.33 cmLVESV MOD A4C: 27.67 mlLVLs A4C: 7.01 cmLAESV(A-L): 38.69 | | mlLAESV Index (A-L): 19.84 ml/m2LAAs A2C: 14.04 [id number] A-L A2C: 39.59 mlLALs | | A2C: 4.22 cmLAAs A4C: 13.72 [id number] A-L A4C: 35.11 mlLALs A4C: 4.55 cmRAAs: | | 9.05 [id number] A-L: 16.00 mlRAESV MOD: 15.27 mlRALs: 4.34 cmTAPSE: 2.43 cmLVOT | | maxP.11 mmHgLVOT meanP.16 mmHgLVSI Dopp: 42.31 ml/m2LVSV Dopp: 82.50 | | mlLVOT Vmax: 1.23 m/sLVOT Vmean: 0.83 m/sLVOT VTI: 26.06 cmMV A Sander: 0.76 m/sMV | | Dec Breathitt: 3.58 m/s2MV DecT: 214.61 msMV E Sander: 0.77 m/sMV E/A Ratio: 1.01MV | | PHT: 62.23 msMVA By PHT: 3.53 [id number] e': 0.05 m/sSeptal E/e': 14.77Lateral | | e': 0.09 m/sLateral E/e': 8.24RV s': 0.14 m/s Tubing Mill Setter: LISAuthenticated by: | | [facility] Date/Time: 03-15-2018 18:9:55 IMPRESSION: 1. This was a technically | | difficult study with suboptimal views.2. The left ventricle is normal in size, wall | | thickness and hyperdynamic function EF>70%.3. The right ventricle is normal in size and | | function.4. Mild degenerative changes in the mitral and aortic valves.5. There is no | | pericardial effusion. | |MEASUREMENTS | | | |Ao asc: 3.34 cm | |Ao Diam: 2.95 cm | |Ao sinus: 3.47 cm | |Ao st junct: 2.72 cm | |IVC: 1.93 cm | |EDV(Teich): 64.49 ml | |IVSd: 0.92 cm | |LVIDd: 3.86 cm | |LVPWd: 0.74 cm | |LVOT Area: 3.16 cm2 | |LVOT Diam: 2.00 cm | |%FS: 37.98 % | |EF(Teich): 68.84 % | |ESV(Teich): 20.09 ml | |LVIDs: 2.39 cm | |SV(Teich): 44.40 ml | |RV Major: 7.07 cm | |RV Minor: 3.40 cm | |RVIDd: 2.43 cm | |LVEF MOD A2C: 74.55 % | |SV MOD A2C: 55.14 ml | |LVEF MOD A4C: 69.04 % | |SV MOD A4C: 61.72 ml | |EF Biplane: 71.47 % | |LVEDV MOD BP: 81.64 ml | |LVESV MOD BP: 23.28 ml | |LVEDV MOD A2C: 73.96 ml | |LVLd A2C: 8.64 cm | |LVEDV MOD A4C: 89.39 ml | |LVLd A4C: 8.73 cm | |LVESV MOD A2C: 18.81 ml | |LVLs A2C: 7.33 cm | |LVESV MOD A4C: 27.67 ml | |LVLs A4C: 7.01 cm | |LAESV(A-L): 38.69 ml | |LAESV Index (A-L): 19.84 ml/m2 | |LAAs A2C: 14.04 cm2 | |LAESV A-L A2C: 39.59 ml | |LALs A2C: 4.22 cm | |LAAs A4C: 13.72 cm2 | |LAESV A-L A4C: 35.11 ml | |LALs A4C: 4.55 cm | |RAAs: 9.05 cm2 | |RAESV A-L: 16.00 ml | |RAESV MOD: 15.27 ml | |RALs: 4.34 cm | |TAPSE: 2.43 cm | |LVOT maxP.11 mmHg | |LVOT meanP.16 mmHg | |LVSI Dopp: 42.31 ml/m2 | |LVSV Dopp: 82.50 ml | |LVOT Vmax: 1.23 m/s | |LVOT Vmean: 0.83 m/s | |LVOT VTI: 26.06 cm | |MV A Sander: 0.76 m/s | |MV Dec Breathitt: 3.58 m/s2 | |MV DecT: 214.61 ms | |MV E Sander: 0.77 m/s | |MV E/A Ratio: 1.01 | |MV PHT: 62.23 ms | |MVA By PHT: 3.53 cm2 | |Septal e': 0.05 m/s | |Septal E/e': 14.77 | |Lateral e': 0.09 m/s | |Lateral E/e': 8.24 | |RV s': 0.14 m/s | | | |Tubing Mill Setter: [email or web address] | |Authenticated by: Ashley Brown | |Report Date/Time: 03-15-2018 18:9:55 | | | |IMPRESSION: | |1. This was a technically difficult study with suboptimal views. | |2. The left ventricle is normal in size, wall thickness and hyperdynamic function EF>70%. | |3. The right ventricle is normal in size and function. | |4. Mild degenerative changes in the mitral and aortic valves. | |5. There is no pericardial effusion. | + + documented in this encounter Visit Diagnoses Not on filedocumented in this encounter"
--- OUTSIDE RECORDS SUMMARY | ~2019-09-14 | XMS | Clinical Summary ---
Demographics + + + | Address | [address] | | | [place] [address] | + + + | Home Phone | | + + + | Preferred Language | Unknown | + + + | Marital Status | | + + + | Restorationist Affiliation | 1041 | + + + | Race | Unknown | + + + | Ethnic Group | Unknown | + + + Author + + + | Author | [facility] | | | and [place] | + + + | Organization | [facility] | | | and [place] | [...] Team Providers + +------+ + | Care Cnc Field Service Engineer Name | Role | Phone | + +------+ + | Isidra Renteria PA-C | PCP | | + +------+ + Allergies + + + + + + | Active Allergy | Reactions | Severity | Noted | Comments | | | | | Date | | + + + + + + | Metformin | Swelling | High | 11/14/19 | Difficulty | | | | | 16 | swallowing. "Whole | | | | | | body swelled" | + + + + + + Medications + + + +---------+------+------+-------+ | Medication | Sig | Dispensed | Refills | Star | End | Statu | | | | | | t | Date | s | | | | | | Date | | | + + + +---------+------+------+-------+ | citalopram | Take 20 mg by mouth | | 0 | | | Activ | | (CELEXA) 40 mg | Daily. | | | | | e | | tablet | | | | | | | + + + +---------+------+------+-------+ | EPINEPHrine | Inject 0.3 mg into | | 0 | | | Activ | | (EPIPEN) 0.3 mg/0.3 | the muscle as needed | | | | | e | | mL injection | for Anaphylaxis. | | | | | | + + + +---------+------+------+-------+ | estradiol | Take 0.5 mg by mouth | | 0 | | | Activ | | (ESTRACE) 0.5 mg | Daily. | | | | | e | | tablet | | | | | | | + + + +---------+------+------+-------+ | gemfibrozil | Take 600 mg by mouth | | 0 | | | Activ | | (LOPID) 600 mg | Daily. | | | | | e | | tablet | | | | | | | + + + +---------+------+------+-------+ | levothyroxine | Take 100 mcg by | | 0 | | | Activ | | (SYNTHROID, | mouth Daily. | | | | | e | | LEVOTHROID) 100 mcg | | | | | | | | tablet | | | | | | | + + + +---------+------+------+-------+ | pramipexole | Take 0.5 mg by | | 0 | | | Activ | | (MIRAPEX) 0.5 MG | mouth. 3 tablets at | | | | | e | | tablet | night | | | | | | + + + +---------+------+------+-------+ | nitroglycerin | Place 0.4 mg under | | 0 | | | Activ | | (NITROSTAT) 0.4 mg | the tongue every 5 | | | | | e | | SL tablet | minutes as [...] 2nd dose.). | | | | | | + + + +---------+------+------+-------+ | | Take 1 tablet by | | 0 | | | Activ | | lisinopril-hydrochlo | mouth Daily. | | | | | e | | rothiazide | | | | | | | | (PRINZIDE,ZESTORETIC | | | | | | | | ) 10-12.5 MG per | | | | | | | | tablet | | | | | | | + + + +---------+------+------+-------+ | ranitidine | Take 300 mg by mouth | | 0 | 06/1 | | Activ | | (ZANTAC) 300 MG | Daily. | | | 6/20 | | e | | tablet | | | | 16 | | | + + + +---------+------+------+-------+ | atorvaSTATin | Take 40 mg by mouth | | 0 | 06/1 | | Activ | | (LIPITOR) 40 mg | nightly. | | | 0/20 | | e | | tablet | | | | 16 | | | + + + +---------+------+------+-------+ | | Take 25 mg by mouth | | 0 | 06/1 | | Activ | | hydrochlorothiazide | Daily. | | | /20 | | e | | 25 mg tablet | | | | 16 | | | + + + +---------+------+------+-------+ | lactulose 10 g/15 | Take 30 mLs by mouth | 240 mL | 2 | 09/3 | | Activ | | mL solution | 2 times daily. For | | | 0/20 | | e | | | constipation | | | 16 | | | + + + +---------+------+------+-------+ | diazePAM (VALIUM) | Take 1 tablet by | 90 | 0 | 10/2 | | Activ | | 5 mg tablet | mouth every 6 hours | tablet | | 1/20 | | e | | | as needed. | | | 16 | | | + + + +---------+------+------+-------+ | | Take 1-2 tablets by | 120 | 1 | 01/1 | | Activ | | oxyCODONE-acetaminop | mouth every 4 hours | tablet | | 2/20 | | e | | hen (PERCOCET) | as needed for Pain. | | | 17 | | | | 10-325 mg per tablet | | | | | | | + + + +---------+------+------+-------+ | fentaNYL | Place 1 patch onto | 10 | 1 | 01/1 | | Activ | | (DURAGESIC) 50 | the skin every 72 | patch | | 2/20 | | e | | mcg/hr | hours. | | | 17 | | | + + + +---------+------+------+-------+ | DULoxetine | Take 1 capsule by | 30 | 2 | / | | Activ | | (CYMBALTA) [address] | mouth Daily. | capsule | | 2/20 | | e | | capsule | | | | 17 | | | + + + +---------+------+------+-------+ Active Problems + + + | Problem | Noted Date | + + + | Diabetes mellitus type 2 in obese | 12/01/2015 | + + + | Obesity (BMI 30-39.9) | 12/01/2015 | + + + | Opioid dependence | 12/01/2015 | + + + + + | Overview: For back pain | + + + + + | Hypertension | 11/28/2015 | + + + | Hyperlipidemia, mixed | | + + + | Degenerative disc disease, lumbar | | + + + | Restless leg syndrome | | + + + | Arthritis | | + + + | Urge incontinence | | + + + | Bone spur- Right Shoulder | | + + + | Abnormal EKG | | + + + | Pre-operative exam | | + + + | Borderline diabetes | | + + + | Hyperlipidemia | | + + + Immunizations + + + + | Name | Administration Dates | Next Due | + + + + | INFLUENZA PF | 12/03/2015 | | | QUAD(PED/ADOL/ADULT) | | | | ,PSKT or VIAL | | | + + + + Family History + + +------+ + | Medical History | Relation | Name | Comments | + + +------+ + | Colon cancer | Daughter | | | + + +------+ + | No known problems | Father | | | + + +------+ + | No known problems | Maternal | | | | | Grandfath | | | | | er | | | + + +------+ + | No known problems | Maternal | | | | | Grandmoth | | | | | er | | | + + +------+ + | Lung cancer | Mother | | | + + +------+ + | Heart disease | Other | | Uncle | + + +------+ + | Cancer | Paternal | | | | | Aunt | | | + + +------+ + | Heart disease | Paternal | | | | | Grandfath | | | | | er | | | + + +------+ + | No known problems | Paternal | | | | | Grandmoth | | | | | er | | | + + +------+ + + +------+ + + | Relation | Name | Status | Comments | + +------+ + + | Brother | Bill | Alive | | + +------+ + + | Child | | Alive | | + +------+ + + | Child | | Alive | | + +------+ + + | Daughter | | Alive | | + +------+ + + | Daughter | | | | + +------+ + + | Father | | Other | Not listed | + +------+ + + | Maternal Grandfather | | Other | Not listed | + +------+ + + | Maternal Grandmother | | Other | Not listed | + +------+ + + | Mother | | | | | | | (Age | | | | | 82) | | + +------+ + + | Other | | | | + +------+ + + | Paternal Aunt | | | | + +------+ + + | Paternal Grandfather | | Alive | | + +------+ + + | Paternal Grandmother | | Other | Not listed | + +------+ + + | Paternal Uncle | | Alive | | + +------+ + + Social History + + + [...] on file | | + + + Last Filed Vital Signs + + + [...] + + + + | Temperature | 37 C (98.6 F) | 12/05/2015 7:59 AM | | | | | PDT | | + + + + + | Respiratory Rate | 16 | 03/18/2016 12:43 PM | | | | | PST | | + + + + + | Oxygen Saturation | 95% | 12/05/2015 7:59 AM | | | | | PDT [...] | | + + + + + Plan of Treatment + + + + + | Health Maintenance | Due Date | Last | Comments | | | | Done | | + + + + + | Vaccine: | | | | | Dtap/Tdap/Td (1 - | 4 | | | | Tdap) | | | | + + + + + | Vaccine: Zoster (1 | | | | | of 2) | 5 | | | + + + + + | Breast Cancer | | | | | Screening | 0 | | | + + + + + | Vaccine: | | | | | Pneumococcal 65+ (1 | 0 | | | | of 1 - PPSV23) | | | | + + + + + | Vaccine: Influenza | | 12/03/19 | | | (#1) | 0 | 16 | | + + + + + Implants + +--------+--------+ +--------+--------+--------+ | Implanted | Type | Area | Manufacture | Device | Shelf | Model | | | | | r | | Expira | / | | | | | | Identi | tion | Serial | | | | | | fier | Date | / Lot | + +--------+--------+ +--------+--------+--------+ | Bone Chips 15cc - | Bone | Right: | RTI | | 08/31/ | [id number] | | [id number]: Qty: 1 on | | Spine | BIOLOGICS | | 2020 | | | 12/01/2015 by Riccardo Lechuga | | | MICHAEL MONTERO | | | /[id number] | | DO Wes at [facility] | | Lumbar | | | | 1-023 | | [facility] | | | | | | / | + +--------+--------+ +--------+--------+--------+ | Imp Spn Spcr Xlw 10d [id number] | Generi | Right: | NUVASIVE - | | | [id number] | | - [id number]: Qty: 2 | c | Spine | NVSV | | | 5 / / | | on 12/01/2015 by Alexandrea, | | | | | | | | Riccardo Harvey DO at [facility] | | Lumbar | | | | | | [facility] | | | | | | | + +--------+--------+ +--------+--------+--------+ | Cage Xl Wide 10deg [id number] - | Generi | Right: | NUVASIVE - | | | [id number] | | [id number]: Qty: 1 on | c | Spine | NVSV | | | 0 / / | | 12/01/2015 by Riccardo Lechuga | | | | | | | | DO Wes at [facility] | | Lumbar | | | | | | [facility] | | | | | | | + +--------+--------+ +--------+--------+--------+ | Imp Spn Spcr 26x9mm - | Generi | Right: | [employer] - | | 07/17/ | [id number] | | [id number]: Qty: 1 on | c | Spine | MEDT | | 4 | 9 / | | 12/01/2015 by Riccardo Lechuga | | | | | | /[id number] | | DO Wes at [facility] | | Lumbar | | | | 665 | | [facility] | | | | | | | + +--------+--------+ +--------+--------+--------+ | Imp Spn Jake Sext [id number] | Generi | Right: | MEDTR[employer]IC - | | | [id number] | | - [id number]: Qty: 2 | c | Spine | MEDT | | | [id number] / | | on 12/01/2015 by Alexandrea, | | | | | | / | | Riccardo Harvey DO at [facility] | | Lumbar | | | | | | [facility] | | | | | | | + +--------+--------+ +--------+--------+--------+ | Graft Infuse Bone Kit Xs - | Graft | Right: | SOFAMOR | | 10/04/ | [id number] | | [id number]: Qty: 1 on | | Spine | DANEK - DIV | | 2017 | 0 / | | 12/01/2015 by Riccardo Lechuga | | | MEDTR[employer]IC | | | /[id number] | Kavon Harvey DO at [facility] | | Lumbar | - SFDK | | | [id number] | | [facility] | | | | | | | + +--------+--------+ +--------+--------+--------+ | Graft Infuse Bone Kit Xs - | Graft | Right: | JOZEFAMOR | | 12/04/ | [id number] | | [id number]: Qty: 1 on | | Spine | DANEK - DIV | | 2017 | 0 / | | 12/01/2015 by Riccardo Lechuga | | | MEDTRONIC | | | /[id number] | | DO Wes at [facility] | | Lumbar | - SFDK | | | [id number] | | [facility] | | | | | | | + +--------+--------+ +--------+--------+--------+ | Putty Darryl 10cc Dbm - | Graft | Right: | [employer] - | | 06/30/ | [id number] | | [id number]: Qty: 1 | | Spine | MEDT | | 2019 | | | on 12/01/2015 by Alexandrea, | | | | | | /[id number] | | Riccardo Harvey DO at [facility] | | Lumbar | | | | 2-028 | | [facility] | | | | | | / | + +--------+--------+ +--------+--------+--------+ | Putty Pixley 5cc Dbm - | Graft | Right: | [employer]IC - | | 07/28/ | [id number] | | [id number]: Qty: 1 on | | Spine | MEDT | | 2019 | /[id number] | | 12/01/2015 by Riccardo Lechuga | | | | | | 0-046 | | DO Wes at [facility] | | Lumbar | | | | / | | [facility] | | | | | | | + +--------+--------+ +--------+--------+--------+ | Screw 4.75 Xtb Radha Mas | Screw | Right: | MEDTRONIC - | | | 979265 | | 5.5x60 - [id number]: | | Spine | MEDT | | | [id number] | | Qty: 4 on 12/01/2015 by | | | | | | / / | | Riccardo Lechuga DO at [facility] | | Lumbar | | | | | | [facility] | | | | | | | | CENTER | | | | | | | + +--------+--------+ +--------+--------+--------+ | Screw 4.75 Xtb Radha Mas | Screw | Right: | [employer]TR[employer]IC - | | | [id number] | | 6.5x60 - [id number]: | | Spine | MEDT | | | [id number] | | Qty: 4 on 12/01/2015 by | | | | | | / / | | Riccardo Lechuga DO at [facility] | | Lumbar | | | | | | [facility] | | | | | | [facility] | | | | | | | + +--------+--------+ +--------+--------+--------+ | Screw 4.75 Xtb Radha Mas | Screw | Right: | [employer] - | | | 346419 | | 7.5x45 - [id number]: | | Spine | MEDT | | | [id number] | | Qty: 1 on 12/01/2015 by | | | | | | / / | | Riccardo Lechuga DO at [facility] | | Lumbar | | | | | | [facility] | | | | | | | | CENTER | | | | | | | + +--------+--------+ +--------+--------+--------+ | Screw 4.75 Xtb Radha Mas | Screw | Right: | [employer] - | | | 844257 | | 7.5x50 - [id number]: | | Spine | MEDT | | | 48985 | | Qty: 1 on 12/01/2015 by | | | | | | / / | | Riccardo Lechuga DO at [facility] | | Lumbar | | | | | | [facility] | | | | | | | | CENTER | | | | | | | + +--------+--------+ +--------+--------+--------+ | Screw Set Slra Perc Ti 4.75 - | Screw | Right: | MEDTR[employer]IC - | | | [id number] | | [id number]: Qty: 10 | | Spine | MEDT | | | 0 / / | | on 12/01/2015 by Alexandrea, | | | | | | | | Riccardo Harvey DO at [facility] | | Lumbar | | | | | | [facility] | | | | | | | + +--------+--------+ +--------+--------+--------+ Results Not on filefrom Last 3 Months Insurance + +--------+ +--------+ +---------+--------+ | Payer | Benefi | Subscriber | Effect | Phone | Address | Type | | | t Plan | ID | ever | | | | | | / | | Dates | | | | | | Group | | | | | | + +--------+ +--------+ +---------+--------+ | Everypost | SAIF | [id number] | | [phone] | | Indemn | | | WC | | 015-Pr | 5 | | ity | | | | | esent | | | | + +--------+ +--------+ +---------+--------+ | MEDICARE | MEDICA | [id number] | | [phone] | | Medica | | | RE | | 010-Pr | 5 | | re | | | PART A | | esent | | | | | | AND B | | | | | | + +--------+ +--------+ +---------+--------+ | MEDICAID [place] | MEDICA | [id number] | 05/14/19 | [phone] | | Medica | | | [place] | | 16-Pre | 2 | | id | | | PLUS | | sent | | | | + +--------+ +--------+ +---------+--------+ + +--------+ +--------+ + + | Guarantor Name | Accoun | Relation to | Date | Phone | Billing Address | | | t Type | Patient | of | | | | | | | | | | + +--------+ +--------+ + + | Rashad Crane | Person | Self | [birth year] | [address] | | | al/Fam | | 1945 | [phone] | [place] [address] | | | jennifer | | | 7 (Home) | | + +--------+ +--------+ + + | Rashad Crane | Worker | Self | [birth year] | [address] | | | s Comp | | 1945 | [phone] | [place] [address] | | | | | | 7 (Home) | | + +--------+ +--------+ + + Advance Directives + + + + + | Type | Date Recorded | Patient | Explanation | | | | Tax Staff Accountant | | + + + + + | Power of | | | | | Print Developer Automatic | | | | + + + + + | Advance | 12/01/2015 5:49 | | | | Directive | AM | | | + + + + + + + + + + | Code Status | Date | Date | Comments | | | Activated | Inactivated | | + + + + + | Full Code | 12/01/2015 | 12/05/2015 | | | | 3:32 PM | 3:20 PM | | + + + + +
--- OUTSIDE RECORDS SUMMARY | ~2019-09-14 | XMS | Encounter Summary ---
Demographics + + + | Address | [address] | | | [place] [address] | + + + | Home Phone | | + + + | Preferred Language | Unknown | + + + | Marital Status | | + + + | Voodoo Affiliation | 1041 | + + + | Race | Unknown | + + + | Ethnic Group | Unknown | + + + Author + + + | Author | [facility] | | | and [place] | + + + | Organization | [facility] | | | and [...] Team Providers + +------+ + | Care Cyber Transport Systems Specialist Name | Role | Phone | + +------+ + | Isidra Renteria PA-C | PCP | | + +------+ + Encounter Details +--------+ + + + + | Date | Type | Department | Care Team | Description | +--------+ + + + + | 09/23/ | Orders Only | [facility] | Riccardo Lechuga, | Hyperlipidemia, | | 2016 | | NEUROSURGERY [address] | DO [address] | mixed (Primary Dx); | | | | [address] | [address] [place], [place] | Degenerative disc | | | | [place], [place] | [address] | disease, lumbar; | | | | [address] | | Restless leg | | | | [phone] | | syndrome; Arthritis; | | | | | | Urge incontinence; | | | | | | Bone spur- Right | | | | | | Shoulder; Abnormal | | | | | | EKG; Pre-operative | | | | | | exam; Borderline | | | | | | diabetes; | | | | | | Hyperlipidemia, | | | | | | unspecified | | | | | | hyperlipidemia type | +--------+ + + + + Social [...] | 0 Standard drinks | 0.0 | Social | | | or equivalent | | | + + +---------+ + + + + | Sex Assigned at | Date Recorded | | | | + + + | Not on file | | + + + documented as of this encounter Plan of Treatment Not on filedocumented as of this encounter Results XR Chest PA and Lateral (11/14/2015 11:48 AM PDT) + + | Specimen | + + | | + + + + + | Narrative | Performed At | + + + | XR CHEST PA AND LATERAL 11/14/2015 11:48 AM HISTORY: PRE OPERATIVE | [facility] | | EXAM. COMPARISON: None. Findings: Heart size is within | [facility] | | normal limits. Aorta is normal. Mediastinum is unremarkable. Central | [facility] | | pulmonary vasculature is normal. The bilateral lungs are clear with | - IMAGING | | no evidence for pleural effusion or pneumothorax. There is mild | | | S-shaped curvature of the thoracolumbar spine along with moderate | | | spondylosis. Cholecystectomy clips are seen IMPRESSION - No | | | acute findings. Dictated and Signed by: Brandon Rodriguez MD | | | Electronically signed: 11/14/2015 1:53 PM | | + + + + + | Procedure Note | + + | Serge, Rad Results In - 11/14/2015 1:56 PM PDT XR CHEST PA AND LATERAL 11/14/2015 11:48 | | AMHISTORY: PRE OPERATIVE EXAM.COMPARISON: None.Findings:Heart size is within normal | | limits. Aorta is normal. Mediastinum isunremarkable. Central pulmonary vasculature is | | normal. The bilateral lungs areclear with no evidence for pleural effusion or | | pneumothorax. There is mildS-shaped curvature of the thoracolumbar spine along with | | moderate spondylosis.Cholecystectomy clips are seenIMPRESSION -No acute | | findings.Dictated and Signed by: Brandon Rodriguez MD Electronically signed: 11/14/2015 1:53 | | PM | |unremarkable. Central pulmonary vasculature is normal. The bilateral lungs are | |clear with no evidence for pleural effusion or pneumothorax. There is mild | |S-shaped curvature of the thoracolumbar spine along with moderate spondylosis. | |Cholecystectomy clips are seen | | | |IMPRESSION - | |No acute findings. | | | |Dictated and Signed by: Brandon Rodriguez MD | | Electronically signed: 11/14/2015 1:53 PM | + + + + + + + | Performing | Address | City/State/Zipcode | Phone Number | | Organization | | | | + + + + + | [facility] | [address] | [place] | [phone] | | [facility] | | [address] | | | - IMAGING | | | | + + + + + Basic Metabolic Panel (11/14/2015 11:30 AM PDT) + + + + + + | Component | Value | Ref Range | Performed | Pathologist | | | | | At | Signature | + + + + + + | Na | 140 | 136 - 149 | [facility] | | | | | mmol/L | [facility] | | | | | | MEDICAL | | | | | | CENTER - | | | | | | LABORATORY | | + + + + + + | K | 3.3 (L) | 3.5 - 5.1 | [facility] | | | | | mmol/L | [facility] | | | | | | MEDICAL | | | | | | CENTER - | | | | | | LABORATORY | | + + + + + + | Cl | 107 | 98 - 109 mmol/L | [facility] | | | | | | [facility] | | | | | | MEDICAL | | | | | | CENTER - | | | | | | LABORATORY | | + + + + + + | CO2 | 25 | 24 - 31 mmol/L | [facility] | | | | | | [facility] | | | | | | MEDICAL | | | | | | CENTER - | | | | | | LABORATORY | | + + + + + + | Anion Gap | 8 | 3 - 16 mmol/L | [facility] | | | | | | [facility] | | | | | | MEDICAL | | | | | | CENTER - | | | | | | LABORATORY | | + + + + + + | Glucose | 81 | 70 - 109 mg/dL | [facility] | | | | | | [facility] | | | | | | MEDICAL | | | | | | CENTER - | | | | | | LABORATORY | | + + + + + + | BUN | 23 (H) | 7 - 18 mg/dL | [facility] | | | | | | [facility] | | | | | | MEDICAL | | | | | | CENTER - | | | | | | LABORATORY | | + + + + + + | Creatinine | 0.62 | 0.60 - 1.30 | [facility] | | | | | mg/dL | [facility] | | | | | | MEDICAL | | | | | | CENTER - | | | | | | LABORATORY | | + + + + + + | eGFR if not | >60Comment: GLOMERULAR | >=60 | [facility] | | | | FILTRATION | mL/min/1.73m2 | [facility] | | | STATELESS | RATE,ESTIMATED | | MEDICAL | | | | mL/min/1.21b0Yves than | | CENTER - | | | | 60 Chronic kidney | | LABORATORY | | | | disease,if found over a | | | | | | 3-month period.Less than | | | | | | 15 Kidney failureFor | | | | | | | | | | | | Americans,multiply the | | | | | | calculated GFR by 1.21. | | | | | | | | | | + + + + + + | Calcium | 9.2 | 8.3 - 10.5 | [facility] | | | | | mg/dL | [facility] | | | | | | MEDICAL | | | | | | CENTER - | | | | | | LABORATORY | | + + + + + + | BUN/Creatin | 37.1 | | [facility] | | | ine Ratio | | | [facility] | | | | | | MEDICAL | | | | | | CENTER - | | | | | | LABORATORY | | + + + + + + + + | Specimen | + + | Blood | + + + + + + + | Performing | Address | City/State/Zipcode | Phone Number | | Organization | | | | + + + + + | [facility] | [address] | [place] | [phone] | | [facility] | | [address] | | | - LABORATORY | | | | + + + + + CBC with Differential (11/14/2015 11:30 AM PDT) + + + + + + | Component | Value | Ref Range | Performed | Pathologist | | | | | At | Signature | + + + + + + | White Blood | 8.6 | 4.0 - 11.0 K/uL | [facility] | | | Cells | | [facility] | | | | | | [facility] | | | | | | CENTER - | | | | | | LABORATORY | | + + + + + + | Red Blood | 4.19 | 3.70 - 5.20 | [facility] | | | Cells | | M/uL | [facility] | | | | | | MEDICAL | | | | | | CENTER - | | | | | | LABORATORY | | + + + + + + | Hemoglobin | 12.5 | 11.5 - 16.0 | [facility] | | | | | g/dL | [facility] | | | | | | MEDICAL | | | | | | CENTER - | | | | | | LABORATORY | | + + + + + + | Hematocrit | 37.9 | 34.0 - 47.0 % | [facility] | | | | | [facility] | [facility] | | | | | | C[facility] - | | | | | | LABORATORY | | + + + + + + | MCV | 90.3 | 83.0 - 101.0 fL | [facility] | | | | | | [facility] | | | | | | MEDICAL | | | | | | CENTER - | | | | | | LABORATORY | | + + + + + + | MCH | 29.9 | 28.0 - 35.0 pg | [facility] | | | | | | [facility] | | | | | | MEDICAL | | | | | | CENTER - | | | | | | LABORATORY | | + + + + + + | MCHC | 33.1 | 32.0 - 36.0 | [facility] | | | | | g/dL | [facility] | | | | | | MEDICAL | | | | | | CENTER - | | | | | | LABORATORY | | + + + + + + | RDW-CV | 14.2 | <15.0 % | [facility] | | | | | | [facility] | | | | | | MEDICAL | | | | | | CENTER - | | | | | | LABORATORY | | + + + + + + | Platelet | 285 | 140 - 440 K/uL | [facility] | | | Count | | | [facility] | | | | | | MEDICAL | | | | | | CENTER - | | | | | | LABORATORY | | + + + + + + | MPV | 8.7 | fL | [facility] | | | | | | [facility] | | | | | | MEDICAL | | | | | | CENTER - | | | | | | LABORATORY | | + + + + + + | % | 68.6 | 45.0 - 82.0 % | [facility] | | | Neutrophils | | | [facility] | | | | | | MEDICAL | | | | | | CENTER - | | | | | | LABORATORY | | + + + + + + | % | 19.7 (L) | 20.0 - 45.0 % | [facility] | | | Lymphocytes | | | [facility] | | | | | | MEDICAL | | | | | | CENTER - | | | | | | LABORATORY | | + + + + + + | % Monocytes | 5.7 | 4.0 - 12.0 % | [facility] | | | | | | [facility] | | | | | | MEDICAL | | | | | | CENTER - | | | | | | LABORATORY | | + + + + + + | % | 4.8 | 0.0 - 5.0 % | [facility] | | | Eosinophils | | | [facility] | | | | | | MEDICAL | | | | | | CENTER - | | | | | | LABORATORY | | + + + + + + | % Basophils | 1.2 (H) | 0.0 - 1.0 % | [facility] | | | | | | [facility] | | | | | | MEDICAL | | | | | | CENTER - | | | | | | LABORATORY | | + + + + + + | Absolute | 5.90 | 1.80 - 8.50 | [facility] | | | Neutrophils | | K/uL | [facility] | | | | | | MEDICAL | | | | | | CENTER - | | | | | | LABORATORY | | + + + + + + | Absolute | 1.70 | 0.60 - 3.20 | [facility] | | | Lymphocytes | | K/uL | [facility] | | | | | | MEDICAL | | | | | | CENTER - | | | | | | LABORATORY | | + + + + + + | Absolute | 0.50 | 0.00 - 1.00 | [facility] | | | Monocytes | | K/uL | [facility] | | | | | | MEDICAL | | | | | | CENTER - | | | | | | LABORATORY | | + + + + + + | Absolute | 0.40 | 0.00 - 0.40 | [facility] | | | Eosinophils | | K/uL | [facility] | | | | | | MEDICAL | | | | | | CENTER - | | | | | | LABORATORY | | + + + + + + | Absolute | 0.10 | 0.00 - 0.10 | [facility] | | | Basophils | | K/uL | [facility] | | | | | | MEDICAL | | | | | | CENTER - | | | | | | LABORATORY | | + + + + + + + + | Specimen | + + | Blood | + + + + + + + | Performing | Address | City/State/Zipcode | Phone Number | | Organization | | | | + + + + + | [facility] | [address] | [place] | [phone] | | [facility] | | [address] | | | - LABORATORY | | | | + + + + + ECG 12 lead (11/14/2015 11:25 AM PDT) + + + + + + | Component | Value | Ref Range | Performed | Pathologist | | | | | At | Signature | + + + + + + | VENTRICULAR | 67 | BPM | [facility] | | | RATE EKG | | | | | + + + + + + | ATRIAL RATE | 67 | BPM | [facility] | | + + + + + + | P-R | 202 | ms | [facility] | | | INTERVAL | | | | | + + + + + + | QRS | 76 | ms | [facility] | | | DURATION | | | | | + + + + + + | Q-T | 406 | ms | [facility] | | | INTERVAL | | | | | + + + + + + | Q-T | 429 | ms | [facility] | | | INTERVAL | | | | | | (CORRECTED) | | | | | + + + + + + | P WAVE AXIS | 32 | degrees | [facility] | | + + + + + + | QRS AXIS | -5 | degrees | [facility] | | + + + + + + | T AXIS | 14 | degrees | [facility] | | + + + + + + | INTERPRETAT | Normal sinus | | [facility] | | | ION TEXT | rhythmMinimal voltage | | | | | | criteria for LVH, may be | | | | | | normal variantAbnormal | | | | | | ECGWhen compared with | | | | | | ECG of 27-AUG-2015 | | | | | | 13:37,there is a change | | | | | | in QRS axis Confirmed by | | | | | | JASWANT PIERRE MD ([id number]) | | | | | | on 11/15/2015 9:08:01 AM | | | | | | | | | | + + + + + + + + | Specimen | + + | | + + + + + | Narrative | Performed At | + + + | | | + + + + +---------+ + + | Performing | Address | City/State/Zipcode | Phone Number | | Organization | | | | + +---------+ + + | [facility] | | | | + +---------+ + + documented in this encounter Visit Diagnoses + + | Diagnosis | + + | Hyperlipidemia, mixed - Primary Mixed hyperlipidemia | + + | Degenerative disc disease, lumbar Degeneration of lumbar or lumbosacral | | intervertebral disc | + + | Restless leg syndrome Restless legs syndrome (RLS) | + + | Arthritis Arthropathy, unspecified, site unspecified | + + | Urge incontinence | + + | Bone spur- Right Shoulder Exostosis of unspecified site | + + | Abnormal EKG Nonspecific abnormal electrocardiogram (ECG) (EKG) | + + | Pre-operative exam Preoperative examination, unspecified | + + | Borderline diabetes Other abnormal glucose | + + | Hyperlipidemia, unspecified hyperlipidemia type | + + documented in this encounter"
--- OUTSIDE RECORDS SUMMARY | ~2019-09-14 | XMS | Encounter Summary ---
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 seconds | [facility] | | | | | | MEDICAL | | | | | | CENTER - | | | | | | LABORATORY | | + + + + + + | INR | 0.96Comment: Usual Oral | 0.90 - 1.10 | [facility] | | | | Anticoagulation Range: | | [facility] | | | | 2.0 - 3.0High | | MEDICAL | | | | Level Oral | | CENTER - | | | | Anticoagulation Range: | | LABORATORY | | | | 2.5 - 3.5 | | | | + + + + + + + + | Specimen | + + | Blood | + + + + + + + | Performing | Address | City/State/Zipcode | Phone Number | | Organization | | | | + + + + + | [facility] | [address] | [place] | [phone] | | [facility] | | [address] | | | - LABORATORY | | | | + + + + + documented in this encounter Visit Diagnoses + + | Diagnosis | + + | S/P lumbar fusion - Primary Arthrodesis status | + + documented in this encounter Administered Medications + +--------+ +--------+------+------+ | Medication Order | MAR | Action | Dose | Rate | Site | | | Action | Date | | | | + +--------+ +--------+------+------+ | acetaminophen (TYLENOL) tablet | Given | 12/05/19 | 650 mg | | | | 650 mg 650 mg, Oral, EVERY 6 | | 16 11:17 | | | | | HOURS (4 times per day), First | | AM PDT | | | | | dose (after last modification) on | | | | | | | 12/02/15 at 1800 | | | | | | + +--------+ +--------+------+------+ +-------+ +--------+---+---+ | Given | 12/05/19 | 650 mg | | | | | 16 5:11 | | | | | | AM PDT | | | | +-------+ +--------+---+---+ | Given | 12/05/19 | 650 mg | | | | | 16 1:06 | | | | | | AM PDT | | | | +-------+ +--------+---+---+ +---+---+ | | | +---+---+ + +-------+ +--------+---+---+ | acetaminophen (TYLENOL) tablet | Given | 12/01/19 | 975 mg | | | | 975 mg 975 mg (rounded from | | 16 6:46 | | | | | 1,000 mg), Oral, ONCE, Mon | | AM PDT | | | | | 12/01/15 at 0645, For 1 dose, | | | | | | | Pre-op | | | | | | + +-------+ +--------+---+---+ +---+---+ | | | +---+---+ + +-------+ +-------+---+---+ | atorvaSTATin (LIPITOR) tablet | Given | 12/04/19 | 40 mg | | | | 40 mg 40 mg, Oral, NIGHTLY, | | 16 9:07 | | | | | First dose on Tue12/02/15 at | | PM PDT | | | | | 2100, Post-op/Phase II | | | | | | + +-------+ +-------+---+---+ +-------+ +-------+---+---+ | Given | 12/03/19 | 40 mg | | | | | 16 8:33 | | | | | | PM PDT | | | | +-------+ +-------+---+---+ | Given | 12/02/19 | 40 mg | | | | | 16 9:11 | | | | | | PM PDT | | | | +-------+ +-------+---+---+ +---+---+ | | | +---+---+ + +-------+ +-------+---+---+ | bisacodyl (DULCOLAX) | Given | 12/04/19 | 10 mg | | | | suppository 10 mg 10 mg, Rectal, | | 16 2:27 | | | | | DAILY PRN, Constipation, | | AM PDT | | | | | Starting Tue12/01/15 at 1531, If | | | | | | | all other bowel medications | | | | | | | ineffective x 24 hours or not | | | | | | | ordered, Post-op/Phase II | | | | | | + +-------+ +-------+---+---+ +---+---+ | | | +---+---+ + +---------+ +-----+-------+---+ | ceFAZolin (ANCEF, KEFZOL) 2 g | New Bag | 12/01/19 | 2 g | 100 | | | in sodium chloride 0.9% 50 mL | | 16 11:47 | | mL/hr | | | IVPB 2 g, Intravenous, | | PM PDT | | | | | Administer over 30 Minutes, EVERY | | | | | | | 8 HOURS INTERVAL, First dose on | | | | | | | 12/01/15 at 1600, For 2 doses, | | | | | | | Start 8 hours after previous | | | | | | | dose. Last dose to be given | | | | | | | within 24 hours of surgery end | | | | | | | time., Post-op/Phase II, | | | | | | | Indications: Surgical Prophylaxis | | | | | | + +---------+ +-----+-------+---+ +---------+ +-----+-------+---+ | New Bag | 12/01/19 | 2 g | 100 | | | | 16 4:18 | | mL/hr | | | | PM PDT | | | | +---------+ +-----+-------+---+ +---+---+ | | | +---+---+ + +-------+ +-------+---+---+ | citalopram (celeXA) tablet 20 | Given | 12/05/19 | 20 mg | | | | mg 20 mg, Oral, DAILY, First | | 16 8:44 | | | | | dose on 12/01/15 at 1600, | | AM PDT | | | | | Post-op/Phase II | | | | | | + +-------+ +-------+---+---+ +-------+ +-------+---+---+ | Given | 12/04/19 | 20 mg | | | | | 16 9:47 | | | | | | AM PDT | | | | +-------+ +-------+---+---+ | Given | 12/03/19 | 20 mg | | | | | 16 8:29 | | | | | | AM PDT | | | | +-------+ +-------+---+---+ +---+---+ | | | +---+---+ + +-------+ +------+---+---+ | dexamethasone (DECADRON) 4 | Given | 12/05/19 | 4 mg | | | | mg/mL injection 4 mg 4 mg, | | 16 4:37 | | | | | Intravenous, EVERY 6 HOURS (4 | | AM PDT | | | | | times per day), First dose on [facility] | | | | | | | 12/04/15 at 0845, For 5 doses | | | | | | + +-------+ +------+---+---+ +-------+ +------+---+---+ | Given | 12/04/19 | 4 mg | | | | | 16 10:40 | | | | | | PM PDT | | | | +-------+ +------+---+---+ | Given | 12/04/19 | 4 mg | | | | | 16 4:39 | | | | | | PM PDT | | | | +-------+ +------+---+---+ +---+---+ | | | +---+---+ + +-------+ +--------+---+---+ | diazepam (VALIUM) injection | Given | 12/01/19 | 2.5 mg | | | | 2.5-5 mg 2.5-5 mg, Intravenous, | | 16 4:46 | | | | | EVERY 6 HOURS PRN, Muscle spasms, | | PM PDT | | | | | Starting 12/01/15 at 1410, | | | | | | | Use if methocarbamol and | | | | | | | cyclobenzaprine ineffective or | | | | | | | not ordered. Use PO option unless | | | | | | | NPO status or unable to | | | | | | | tolerate., Post-op/Phase II | | | | | | + +-------+ +--------+---+---+ +-------+ +--------+---+---+ | Given | 12/01/19 | 2.5 mg | | | | | 16 2:15 | | | | | | PM PDT | | | | +-------+ +--------+---+---+ +---+---+ | | | +---+---+ + +-------+ +------+---+---+ | diazepam (VALIUM) tablet 5 mg | Given | 12/05/19 | 5 mg | | | | 5 mg, Oral, EVERY 6 HOURS PRN, | | 16 11:17 | | | | | Muscle spasms, Starting Mon | | AM PDT | | | | | 12/01/15 at 1531, Use if | | | | | | | methocarbamol and cyclobenzaprine | | | | | | | ineffective or not ordered., | | | | | | | Post-op/Phase II | | | | | | + +-------+ +------+---+---+ +-------+ +------+---+---+ | Given | 12/05/19 | 5 mg | | | | | 16 5:11 | | | | | | AM PDT | | | | +-------+ +------+---+---+ | Given | 12/04/19 | 5 mg | | | | | 16 9:07 | | | | | | PM PDT | | | | +-------+ +------+---+---+ +---+---+ | | | +---+---+ + +-------+ +--------+---+---+ | docusate sodium (COLACE) | Given | 12/03/19 | 100 mg | | | | capsule 100 mg 100 mg, Oral, 2 | | 16 8:33 | | | | | TIMES DAILY, First dose on Mon | | PM PDT | | | | | 12/01/15 at 2100, First line agent | | | | | | | for constipation, Post-op/Phase | | | | | | | II | | | | | | + +-------+ +--------+---+---+ +-------+ +--------+---+---+ | Given | 12/03/19 | 100 mg | | | | | 16 8:29 | | | | | | AM PDT | | | | +-------+ +--------+---+---+ | Given | 12/02/19 | 100 mg | | | | | 16 9:11 | | | | | | PM PDT | | | | +-------+ +--------+---+---+ +---+---+ | | | +---+---+ + +-------+ +--------+---+---+ | estradiol (ESTRACE) tablet 0.5 | Given | 12/05/19 | 0.5 mg | | | | mg 0.5 mg, Oral, DAILY, First | | 16 8:46 | | | | | dose on Tue12/02/15 at 0900, | | AM PDT | | | | | Hazardous: Use appropriate | | | | | | | handling precautions., | | | | | | | Post-op/Phase II | | | | | | + +-------+ +--------+---+---+ +-------+ +--------+---+---+ | Given | 12/04/19 | 0.5 mg | | | | | 16 9:50 | | | | | | AM PDT | | | | +-------+ +--------+---+---+ | Given | 12/03/19 | 0.5 mg | | | | | 16 8:29 | | | | | | AM PDT | | | | +-------+ +--------+---+---+ +---+---+ | | | +---+---+ + +-------+ +-------+---+---+ | famotidine (PEPCID) tablet 40 | Given | 12/05/19 | 40 mg | | | | mg 40 mg, Oral, DAILY, First | | 16 8:43 | | | | | dose on Tue12/01/15 at 1600, | | AM PDT | | | | | Post-op/Phase II | | | | | | + +-------+ +-------+---+---+ +-------+ +-------+---+---+ | Given | 12/04/19 | 40 mg | | | | | 16 9:47 | | | | | | AM PDT | | | | +-------+ +-------+---+---+ | Given | 12/03/19 | 40 mg | | | | | 16 8:29 | | | | | | AM PDT | | | | +-------+ +-------+---+---+ +---+---+ | | | +---+---+ + +---------+ +---------+---+ + | fentaNYL (DURAGESIC) 50 mcg/hr | Patch | 12/03/19 | 1 patch | | Back-Rig | | 1 patch 1 patch, Transdermal, | Applied | 16 8:29 | | | ht Upper | | EVERY 72 HOURS, First dose on Wed | | AM PDT | | | | | 12/03/15 at 0815 | | | | | | + +---------+ +---------+---+ + +---+---+ | | | +---+---+ + +-------+ +--------+---+---+ | fentaNYL (PF) injection 25-50 | Given | 12/01/19 | 25 mcg | | | | mcg 25-50 mcg, Intravenous, | | 16 1:42 | | | | | EVERY 5 MIN PRN, Pain, Starting | | PM PDT | | | | | 12/01/15 at 1202, Maximum | | | | | | | total dose 250 mcg. PACU IV | | | | | | | Narcotic Priority: Only use | | | | | | | fentanyl for immediate post-op | | | | | | | pain (one dose) or breakthrough | | | | | | | pain when any other IV narcotics | | | | | | | ordered have been ineffective (if | | | | | | | ordered). If both morphine and | | | | | | | hydromorphone are ordered, use | | | | | | | morphine first, and use | | | | | | | hydromporphone if morphine | | | | | | | ineffective., Recovery/Phase I | | | | | | + +-------+ +--------+---+---+ + + +--------+---+---+ | Given | 12/01/19 | 50 mcg | | | | | 16 1:32 | | | | | | PM PDT | | | | + + +--------+---+---+ | Given by Other | 12/01/19 | 50 mcg | | | | | 16 12:39 | | | | | | PM PDT | | | | + + +--------+---+---+ +---+---+ | | | +---+---+ + +-------+ +--------+---+---+ | gabapentin (NEURONTIN) capsule | Given | 12/01/19 | 300 mg | | | | 300 mg 300 mg, Oral, ONCE, Tue | | 16 6:46 | | | | | 12/01/15 at 0645, For 1 dose, | | AM PDT | | | | | Pre-op | | | | | | + +-------+ +--------+---+---+ +---+---+ | | | +---+---+ + +-------+ +--------+---+---+ | gabapentin (NEURONTIN) capsule | Given | 12/01/19 | 600 mg | | | | 600 mg 600 mg, Oral, NIGHTLY, | | 16 8:31 | | | | | First dose on Tue12/01/15 at | | PM PDT | | | | | 2100, Post-op/Phase II | | | | | | + +-------+ +--------+---+---+ +---+---+ | | | +---+---+ + +-------+ +--------+---+---+ | gabapentin (NEURONTIN) capsule | Given | 12/05/19 | 600 mg | | | | 600 mg 600 mg, Oral, 3 TIMES | | 16 8:45 | | | | | DAILY, First dose (after last | | AM PDT | | | | | modification) on Tue12/02/15 at | | | | | | | 1400, Post-op/Phase II | | | | | | + +-------+ +--------+---+---+ +-------+ +--------+---+---+ | Given | 12/04/19 | 600 mg | | | | | 16 9:07 | | | | | | PM PDT | | | | +-------+ +--------+---+---+ | Given | 12/04/19 | 600 mg | | | | | 16 2:01 | | | | | | PM PDT | | | | +-------+ +--------+---+---+ +---+---+ | | | +---+---+ + +-------+ +--------+---+---+ | gemfibrozil (LOPID) tablet 600 | Given | 12/05/19 | 600 mg | | | | mg 600 mg, Oral, DAILY, First | | 16 8:45 | | | | | dose on Tue12/02/15 at 0900, Give | | AM PDT | | | | | 30 minutes before a meal., | | | | | | | Post-op/Phase II | | | | | | + +-------+ +--------+---+---+ +-------+ +--------+---+---+ | Given | 12/04/19 | 600 mg | | | | | 16 9:49 | | | | | | AM PDT | | | | +-------+ +--------+---+---+ | Given | 12/03/19 | 600 mg | | | | | 16 8:29 | | | | | | AM PDT | | | | +-------+ +--------+---+---+ +---+---+ | | | +---+---+ + +-------+ +-------+---+---+ | hydrochlorothiazide tablet 25 | Given | 12/05/19 | 25 mg | | | | mg 25 mg, Oral, DAILY, First | | 16 8:44 | | | | | dose on Tue12/01/15 at 1600, | | AM PDT | | | | | Post-op/Phase II | | | | | | + +-------+ +-------+---+---+ +-------+ +-------+---+---+ | Given | 12/04/19 | 25 mg | | | | | 16 9:49 | | | | | | AM PDT | | | | +-------+ +-------+---+---+ | Given | 12/03/19 | 25 mg | | | | | 16 8:29 | | | | | | AM PDT | | | | +-------+ +-------+---+---+ +---+---+ | | | +---+---+ + +-------+ +---------+---+---+ | HYDROcodone-acetaminophen | Given | 12/01/19 | 2 | | | | (NORCO) 10-325 mg per tablet 1-2 | | 16 8:24 | tablets | | | | tablet 1-2 tablet, Oral, EVERY 4 | | PM PDT | | | | | HOURS PRN, Pain, Starting Mon | | | | | | | 12/01/15 at 1531, If ineffective | | | | | | | or not tolerated use Oxycodone if | | | | | | | ordered., Post-op/Phase II | | | | | | + +-------+ +---------+---+---+ +-------+ +---------+---+---+ | Given | 12/01/19 | 2 | | | | | 16 4:16 | tablets | | | | | PM PDT | | | | +-------+ +---------+---+---+ +---+---+ | | | +---+---+ + +-------+ +--------+---+---+ | HYDROmorphone (DILAUDID) | Given | 12/01/19 | 0.4 mg | | | | injection 0.2-0.5 mg 0.2-0.5 mg, | | 16 2:00 | | | | | Intravenous, EVERY 5 MIN PRN, | | PM PDT | | | | | Pain, Starting 12/01/15 at | | | | | | | 1202, Maximum total dose 4 mg. | | | | | | | PACU IV Narcotic Priority: Only | | | | | | | use fentanyl for immediate | | | | | | | post-op pain (one dose) or | | | | | | | breakthrough pain when any other | | | | | | | IV narcotics ordered have been | | | | | | | ineffective (if ordered). If | | | | | | | both morphine and hydromorphone | | | | | | | are ordered, use morphine first, | | | | | | | and use hydromporphone if | | | | | | | morphine ineffective., | | | | | | | Recovery/Phase I | | | | | | + +-------+ +--------+---+---+ +-------+ +--------+---+---+ | Given | 12/01/19 | 0.4 mg | | | | | 16 1:53 | | | | | | PM PDT | | | | +-------+ +--------+---+---+ | Given | 12/01/19 | 0.2 mg | | | | | 16 1:42 | | | | | | PM PDT | | | | +-------+ +--------+---+---+ +---+---+ | | | +---+---+ + +-------+ +--------+---+---+ | HYDROmorphone (DILAUDID) | Given | 12/02/19 | 0.4 mg | | | | injection 0.4-0.8 mg 0.4-0.8 mg, | | 16 3:59 | | | | | Intravenous, EVERY 3 HOURS PRN, | | PM PDT | | | | | Severe Pain, Starting 12/01/15 | | | | | | | at 2043 | | | | | | + +-------+ +--------+---+---+ +-------+ +--------+---+---+ | Given | 12/02/19 | 0.4 mg | | | | | 16 3:20 | | | | | | PM PDT | | | | +-------+ +--------+---+---+ | Given | 12/02/19 | 0.4 mg | | | | | 16 12:42 | | | | | | PM PDT | | | | +-------+ +--------+---+---+ +---+---+ | | | +---+---+ + +-------+ +--------+---+---+ | HYDROmorphone (DILAUDID) | Given | 12/04/19 | 0.5 mg | | | | injection 0.5-1 mg 0.5-1 mg, | | 16 3:23 | | | | | Intravenous, EVERY 3 HOURS PRN, | | AM PDT | | | | | Severe Pain, Starting 12/02/15 | | | | | | | at 1614, Try oxycodone prn | | | | | | | first., | | | | | | + +-------+ +--------+---+---+ +-------+ +--------+---+---+ | Given | 12/03/19 | 0.5 mg | | | | | 16 8:36 | | | | | | PM PDT | | | | +-------+ +--------+---+---+ | Given | 12/03/19 | 0.5 mg | | | | | 16 2:55 | | | | | | PM PDT | | | | +-------+ +--------+---+---+ +---+---+ | | | +---+---+ + +-------+ +---------+---+ + | influenza quadrivalent | Given | 12/03/19 | 0.5 mLs | | Deltoid- | | (FLUZONE, FLUARIX QUADRIVALENT) | | 16 12:50 | | | Right | | vaccine injection (syringe) 0.5 | | PM PDT | | | | | mL 0.5 mL, Intramuscular, ONE | | | | | | | TIME VACCINE, [facility] 12/02/15 at | | | | | | | 0900, For 1 dose, Give patient | | | | | | | education information. Shake | | | | | | | prior to use., | | | | | | + +-------+ +---------+---+ + +---+---+ | | | +---+---+ + +---------+ +--------+-------+---+ | lactated ringers (LR) infusion | New Bag | 12/01/19 | 1,000 | 100 | | | at 10-100 mL/hr, Intravenous, | | 16 12:53 | mLs | mL/hr | | | CONTINUOUS, Starting 12/01/15 | | PM PDT | | | | | at 0645, TKO., Pre-op | | | | | | + +---------+ +--------+-------+---+ +---------+ +---+---+---+ | New Bag | 12/01/19 | | | | | | 16 10:55 | | | | | | AM PDT | | | | +---------+ +---+---+---+ | New Bag | 12/01/19 | | | | | | 16 9:44 | | | | | | AM PDT | | | | +---------+ +---+---+---+ +---+---+ | | | +---+---+ + +-------+ +--------+---+---+ | lactulose liquid 30 mL 30 mL, | Given | 12/04/19 | 30 mLs | | | | Oral, DAILY PRN, Constipation, | | 16 6:24 | | | | | Starting Tue12/01/15 at 1531, If | | AM PDT | | | | | docusate, senna, and polyethylene | | | | | | | glycol ineffective x 24 hours or | | | | | | | not ordered, Post-op/Phase II | | | | | | + +-------+ +--------+---+---+ +---+---+ | | | +---+---+ + +-------+ +---------+---+---+ | levothyroxine (SYNTHROID, | Given | 12/05/19 | 100 mcg | | | | LEVOTHROID) tablet 100 mcg 100 | | 16 7:51 | | | | | mcg, Oral, DAILY, First dose on | | AM PDT | | | | | 12/02/15 at 0700, Give before | | | | | | | breakfast., Post-op/Phase II | | | | | | + +-------+ +---------+---+---+ +-------+ +---------+---+---+ | Given | 12/04/19 | 100 mcg | | | | | 16 6:24 | | | | | | AM PDT | | | | +-------+ +---------+---+---+ | Given | 12/03/19 | 100 mcg | | | | | 16 6:28 | | | | | | AM PDT | | | | +-------+ +---------+---+---+ +---+---+ | | | +---+---+ + +-------+ +---------+---+---+ | magnesium citrate liquid 300 mL | Given | 12/03/19 | 300 mLs | | | | 300 mL, Oral, ONCE, 12/03/15 | | 16 8:28 | | | | | at 0815, For 1 dose, Prn, | | AM PDT | | | | + +-------+ +---------+---+---+ +---+---+ | | | +---+---+ + +---------+ +--------+--------+---+ | methocarbamol (ROBAXIN) 750 mg | New Bag | 12/02/19 | 750 mg | 143.3 | | | in sodium chloride 0.9% 100 mL | | 16 2:21 | | mL/hr | | | IVPB 750 mg, Intravenous, | | PM PDT | | | | | Administer over 45 Minutes, EVERY | | | | | | | 8 HOURS (3 times per day), First | | | | | | | dose on Mon 26/16 at 1245, For | | | | | | | 4 doses, Post-op/Phase II | | | | | | + +---------+ +--------+--------+---+ +---------+ +--------+--------+---+ | New Bag | 12/02/19 | 750 mg | 143.3 | | | | 16 5:39 | | mL/hr | | | | AM PDT | | | | +---------+ +--------+--------+---+ | New Bag | 12/01/19 | 750 mg | 143.3 | | | | 16 9:10 | | mL/hr | | | | PM PDT | | | | +---------+ +--------+--------+---+ +---+---+ | | | +---+---+ + +-------+ +--------+---+---+ | methocarbamol (ROBAXIN) tablet | Given | 12/04/19 | 750 mg | | | | 750 mg 750 mg, Oral, EVERY 8 | | 16 12:09 | | | | | HOURS PRN, Muscle spasms, | | AM PDT | | | | | Starting Tue12/01/15 at 1531, For | | | | | | | 3 doses, Post-op/Phase II | | | | | | + +-------+ +--------+---+---+ +-------+ +--------+---+---+ | Given | 12/03/19 | 750 mg | | | | | 16 2:55 | | | | | | PM PDT | | | | +-------+ +--------+---+---+ | Given | 12/02/19 | 750 mg | | | | | 16 10:58 | | | | | | PM PDT | | | | +-------+ +--------+---+---+ +---+---+ | | | +---+---+ + +-------+ +------+---+---+ | morphine injection 2-8 mg 2-8 | Given | 12/01/19 | 4 mg | | | | mg, Intravenous, EVERY 2 HOURS | | 16 8:02 | | | | | PRN, Pain, Starting 12/01/15 | | PM PDT | | | | | at 1531, Slow IV push, not faster | | | | | | | than 2 mg/minute. If ineffective | | | | | | | or not tolerated, use | | | | | | | hydromorphone IV if ordered., | | | | | | | Post-op/Phase II | | | | | | + +-------+ +------+---+---+ +-------+ +------+---+---+ | Given | 12/01/19 | 4 mg | | | | | 16 6:36 | | | | | | PM PDT | | | | +-------+ +------+---+---+ | Given | 12/01/19 | 2 mg | | | | | 16 4:46 | | | | | | PM PDT | | | | +-------+ +------+---+---+ +---+---+ | | | +---+---+ + +-------+ +-------+---+---+ | oxyCODONE (ROXICODONE) tablet | Given | 12/03/19 | 10 mg | | | | 10 mg 10 mg, Oral, EVERY 6 HOURS | | 16 4:54 | | | | | (4 times per day), First dose on | | AM PDT | | | | | 12/02/15 at 1645 | | | | | | + +-------+ +-------+---+---+ +-------+ +-------+---+---+ | Given | 12/02/19 | 10 mg | | | | | 16 9:37 | | | | | | PM PDT | | | | +-------+ +-------+---+---+ | Given | 12/02/19 | 10 mg | | | | | 16 4:56 | | | | | | PM PDT | | | | +-------+ +-------+---+---+ +---+---+ | | | +---+---+ + +-------+ +------+---+---+ | oxyCODONE (ROXICODONE) tablet 5 | Given | 12/04/19 | 5 mg | | | | mg 5 mg, Oral, ONCE, Lani | | 16 7:42 | | | | | 12/04/15 at 0745, For 1 dose | | AM PDT | | | | + +-------+ +------+---+---+ +---+---+ | | | +---+---+ + +-------+ +-------+---+---+ | oxyCODONE (ROXICODONE) tablet | Given | 12/03/19 | 10 mg | | | | 5-10 mg 5-10 mg, Oral, EVERY 3 | | 16 6:11 | | | | | HOURS PRN, Pain, Moderate Pain, | | AM PDT | | | | | Starting 12/02/15 at 1617 | | | | | | + +-------+ +-------+---+---+ +-------+ +-------+---+---+ | Given | 12/03/19 | 10 mg | | | | | 16 2:33 | | | | | | AM PDT | | | | +-------+ +-------+---+---+ +---+---+ | | | +---+---+ + +-------+ +-------+---+---+ | oxyCODONE (ROXICODONE) tablet | Given | 12/05/19 | 10 mg | | | | 5-20 mg 5-20 mg, Oral, EVERY 4 | | 16 1:04 | | | | | HOURS PRN, Pain, Starting Wed | | PM PDT | | | | | 12/03/15 at 0749 | | | | | | + +-------+ +-------+---+---+ +-------+ +-------+---+---+ | Given | 12/05/19 | 10 mg | | | | | 16 11:17 | | | | | | AM PDT | | | | +-------+ +-------+---+---+ | Given | 12/05/19 | 20 mg | | | | | 16 5:11 | | | | | | AM PDT | | | | +-------+ +-------+---+---+ +---+---+ | | | +---+---+ + +-------+ +---------+---+---+ | oxyCODONE-acetaminophen | Given | 12/02/19 | 2 | | | | (PERCOCET) 10-325 mg per tablet | | 16 12:59 | tablets | | | | 1-2 tablet 1-2 tablet, Oral, | | PM PDT | | | | | EVERY 4 HOURS PRN, Pain, Starting | | | | | | | 12/02/15 at 0725 | | | | | | + +-------+ +---------+---+---+ +-------+ +---------+---+---+ | Given | 12/02/19 | 2 | | | | | 16 9:03 | tablets | | | | | AM PDT | | | | +-------+ +---------+---+---+ +---+---+ | | | +---+---+ + +-------+ +---------+---+---+ | oxyCODONE-acetaminophen | Given | 12/02/19 | 2 | | | | (PERCOCET) 7.5-325 mg per tablet | | 16 5:15 | tablets | | | | 1-2 tablet 1-2 tablet, Oral, | | AM PDT | | | | | EVERY 4 HOURS PRN, Pain, Starting | | | | | | | 12/01/15 at 2043 | | | | | | + +-------+ +---------+---+---+ +-------+ +---------+---+---+ | Given | 12/01/19 | 2 | | | | | 16 11:46 | tablets | | | | | PM PDT | | | | +-------+ +---------+---+---+ +---+---+ | | | +---+---+ + +-------+ +------+---+---+ | polyethylene glycol (MIRALAX) | Given | 12/03/19 | 17 g | | | | powder 17 g 17 g, Oral, DAILY, | | 16 8:29 | | | | | First dose on Tue12/01/15 at | | AM PDT | | | | | 1600, If docusate and senna | | | | | | | ineffective or not ordered, | | | | | | | Post-op/Phase II | | | | | | + +-------+ +------+---+---+ +-------+ +------+---+---+ | Given | 12/02/19 | 17 g | | | | | 16 8:12 | | | | | | AM PDT | | | | +-------+ +------+---+---+ +---+---+ | | | +---+---+ + +-------+ +--------+---+---+ | pramipexole (MIRAPEX) tablet | Given | 12/01/19 | 0.5 mg | | | | 0.5 mg 0.5 mg, Oral, NIGHTLY, | | 16 8:31 | | | | | First dose on Tue12/01/15 at | | PM PDT | | | | | 2100, Post-op/Phase II | | | | | | + +-------+ +--------+---+---+ +---+---+ | | | +---+---+ + +-------+ +------+---+---+ | pramipexole (MIRAPEX) tablet 1 | Given | 12/02/19 | 1 mg | | | | mg 1 mg, Oral, ONCE, Tue12/02/15 | | 16 2:20 | | | | | at 1400, For 1 dose | | PM PDT | | | | + +-------+ +------+---+---+ +---+---+ | | | +---+---+ + +-------+ +--------+---+---+ | pramipexole (MIRAPEX) tablet | Given | 12/04/19 | 1.5 mg | | | | 1.5 mg 1.5 mg, Oral, NIGHTLY, | | 16 9:07 | | | | | First dose (after last | | PM PDT | | | | | modification) on Tue12/02/15 at | | | | | | | 2100, Post-op/Phase II | | | | | | + +-------+ +--------+---+---+ +-------+ +--------+---+---+ | Given | 12/03/19 | 1.5 mg | | | | | 16 8:33 | | | | | | PM PDT | | | | +-------+ +--------+---+---+ | Given | 12/02/19 | 1.5 mg | | | | | 16 9:11 | | | | | | PM PDT | | | | +-------+ +--------+---+---+ +---+---+ | | | +---+---+ + +-------+ +--------+---+---+ | senna (SENOKOT) tablet 8.6 mg | Given | 12/03/19 | 8.6 mg | | | | 8.6 mg, Oral, 2 TIMES DAILY, | | 16 8:33 | | | | | First dose on Tue12/01/15 at | | PM PDT | | | | | 2100, If docusate ineffective or | | | | | | | not ordered, Post-op/Phase II | | | | | | + +-------+ +--------+---+---+ +-------+ +--------+---+---+ | Given | 12/03/19 | 8.6 mg | | | | | 16 8:29 | | | | | | AM PDT | | | | +-------+ +--------+---+---+ | Given | 12/02/19 | 8.6 mg | | | | | 16 9:11 | | | | | | PM PDT | | | | +-------+ +--------+---+---+ +---+---+ | | | +---+---+ + +---------+ +---+-------+---+ | sodium chloride 0.9% (NS) | New Bag | 12/01/19 | | 100 | | | infusion at 100 mL/hr, | | 16 7:08 | | mL/hr | | | Intravenous, CONTINUOUS, Starting | | AM PDT | | | | | 12/01/15 at 0645, Pre-op | | | | | | + +---------+ +---+-------+---+ +---+---+ | | | +---+---+ + +---------+ +---------+ +---+ | sodium chloride 0.9% (NS) | New Bag | 12/02/19 | 500 mLs | 50 mL/hr | | | infusion at 100 mL/hr, | | 16 3:40 | | | | | Intravenous, CONTINUOUS, Starting | | AM PDT | | | | | 12/01/15 at 1600, | | | | | | | Post-op/Phase II | | | | | | + +---------+ +---------+ +---+ + + +---+ +---+ | Rate/Dose Change | 12/02/19 | | 50 mL/hr | | | | 16 12:38 | | | | | | AM PDT | | | | + + +---+ +---+ | New Bag | 12/01/19 | | 100 | | | | 16 4:00 | | mL/hr | | | | PM PDT | | | | + + +---+ +---+ +---+---+ | | | +---+---+ documented in this encounter
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
--- OUTSIDE RECORDS SUMMARY | ~2019-09-14 | XMS | Encounter Summary ---
Demographics + + + | Address | [address] | | | [place] [address] | + + + | Home Phone | | + + + | Preferred Language | Unknown | + + + | Marital Status | | + + + | Episcopalian Affiliation | 1041 | + + + | Race | Unknown | + + + | Ethnic Group | Unknown | + + + Author + + + | Author | [facility] | | | and [place] | + + + | Organization | [facility] | | | and [place] [...] Team Providers + +------+ + | Care Locomotive Crane Operator Name | Role | Phone | + +------+ + | Isidra Renteria PA-C | PCP | | + +------+ + Encounter Details +--------+ + + + + | Date | Type | Department | Care Team | Description | +--------+ + + + + | 11/13/ | Preadmit | [facility] | Riccardo Lechuga, | Hyperlipidemia, | | 2016 | Visit | [facility] | DO [address] | mixed; Degenerative | | | | CLINIC [address] | [address] [place], [place] | disc disease, | | | | [place], [place] | [address] | lumbar; Restless leg | | | | [address] | | syndrome; | | | | | | Arthritis; Urge | | | | | | incontinence; Bone | | | | | | spur- Right | | | | | [...] | + +--------+ + + + | CULTURE, MRSA | Routin | 11/14/2015 | | Results for this | | | e | 11:30 AM | | procedure are in the | | | | PDT | | results section. | + +--------+ + + + | CBC WITH | Routin | 11/14/2015 | Hyperlipidemia, | Results for this | | DIFFERENTIAL | e | 11:30 AM | mixed Degenerative | procedure are in the | | | | PDT | disc disease, lumbar | results section. | | | | | Restless leg | | | | | | syndrome Arthritis | | | | | | Urge incontinence | | | | | | Bone spur- Right | | | | | | Shoulder Abnormal | | | | | | EKG Pre-operative | | | | | | exam Borderline | | | | | | diabetes | | | | | | Hyperlipidemia, | | | | | | unspecified | | | | | | hyperlipidemia type | | + +--------+ + + + | BASIC METABOLIC | Routin | 11/14/2015 | Hyperlipidemia, | Results for this | | PANEL | e | 11:30 AM | mixed Degenerative | procedure are in the | | | | PDT | disc disease, lumbar | results section. | | | | | Restless leg | | | | | | syndrome Arthritis | | | | | | Urge incontinence | | | | | | Bone spur- Right | | | | | | Shoulder Abnormal | | | | | | EKG Pre-operative | | | | | | exam Borderline | | | | | | diabetes | | | | | | Hyperlipidemia, | | | | | | unspecified | | | | | | hyperlipidemia type | | + +--------+ + + + | ECG 12 LEAD | Routin | 11/14/2015 | Hyperlipidemia, | Results for this | | | e | 11:25 AM | mixed Degenerative | procedure are in the | | | | PDT | disc disease, lumbar | results section. | | | | | Restless leg | | | | | | syndrome Arthritis | | | | | | Urge incontinence | | | | | | Bone spur- Right | | | | | | Shoulder Abnormal | | | | | | EKG Pre-operative | | | | | | exam Borderline | | | | | | diabetes | | | | | | Hyperlipidemia, | | | | | | unspecified | | | | | | hyperlipidemia type | | + +--------+ + + + documented in this encounter Results Basic Metabolic Panel (11/14/2015 11:30 AM PDT) + + + + + + | Component | Value | Ref Range | Performed | Pathologist | | | | | At | Signature | + + + + + + | Na | 140 | 136 - 149 | [facility] | | | | | mmol/L | [facility] | | | | | | [facility] | | | | | | C[facility] - | | | | | | LABORATORY | | + + + + + + | K | 3.3 (L) | 3.5 - 5.1 | [facility] | | | | | mmol/L | [facility] | | | | [...] | | | | | mg/dL | [facility] | | | | | | MEDICAL | | | | | | CENTER - | | | | | | LABORATORY | | + + + + + + | eGFR if not | >60Comment: GLOMERULAR | >=60 | [facility] | | | | FILTRATION | mL/min/1.73m2 | [facility] | | | ANGUILLAN | RATE,ESTIMATED | | MEDICAL | | | | mL/min/1.01p4Jped than | | CENTER - | | [...] | | | | | mg/dL | [facility] | | | | | | MEDICAL | | | | | | CENTER - | | | | | | LABORATORY | | + + + + + + | BUN/Creatin | 37.1 | | [facility] | | | ine Ratio | | | [facility] | | | | | | [...] | + + + + + | [address] | [address] | [place], [place] | [phone] | | [facility] | | [address] | | | - LABORATORY | | [...] | | | Cells | | | [facility] | | | | | | MEDICAL | | | | | | CENTER - | | | | | | LABORATORY | | + + + + + + | Red Blood | 4.19 | 3.70 - 5.20 | [facility] | | | Cells | | M/uL | [facility] | | | | | | MEDICAL | | | | | | CENTER - | | | | | | LABORATORY | | + + + + + + | Hemoglobin | 12.5 | 11.5 - 16.0 | [facility] | | | | | g/dL | [facility] | | | | [...] | Lymphocytes | | K/uL | [facility] | | | | | | MEDICAL | | | | | | CENTER - | | | | | | LABORATORY | | + + + + + + | Absolute | 0.50 | 0.00 - 1.00 | [facility] | | | Monocytes | | K/uL | [facility] | | | | | | MEDICAL | | | | | | CENTER - | | | | | | LABORATORY | | + + + + + + | Absolute | 0.40 | 0.00 - 0.40 | [facility] | | | Eosinophils | | K/uL | [facility] | | | | | | MEDICAL | | | | | | CENTER - | | | | | | LABORATORY | | + + + + + + | Absolute | 0.10 | 0.00 - 0.10 | [facility] | | | Basophils | | K/uL | [facility] | | | | [...] ST. | [address] | [place], [place] | [phone] | | [facility] | | [address] | | | - LABORATORY | | | | + + + + + Culture, MRSA (11/14/2015 11:30 AM PDT) + + + + + + | Component | Value | Ref Range | Performed | Pathologist | | | | | At | Signature | + + + + + + | Culture | Negative for MRSA by | | [facility] | | | | chromogenic agar method | | [facility] | | | | | | MEDICAL | | | | | | CENTER - | | | | | | LABORATORY | | + + + + + + + + | Specimen | + + | Respiratory - Both | | anterior nares (body | | structure) | + + + + + + + | Performing | Address | City/State/Zipcode | Phone Number | | Organization | | | | + + + + + | [facility] | [address] | [place] | [phone] | | [facility] | | [address] | | | - LABORATORY | | [...] | | | | JASWANT PIERRE MD ([id number]) | | | | | | on [...] Diagnosis | + + | Hyperlipidemia, mixed Mixed hyperlipidemia | + + | Degenerative [...]
--- OUTSIDE RECORDS SUMMARY | ~2019-09-14 | XMS | Encounter Summary ---
Demographics + + + | Address | [address] | | | [place] [address] | + + + | Home Phone | | + + + | Preferred Language | Unknown | + + + | Marital Status | | + + + | Orthodoxy Affiliation | 1041 | + + + | Race | Unknown | + + + | Ethnic Group | Unknown | + + + Author + + + | Author | [facility] | | | and [place] | + + + | Organization | [facility] | | | and [...] Team Providers + +------+ + | Care Risk Consulting Treasury Director Name | Role | Phone | + +------+ + | Isidra Renteria PA-C | PCP | | + +------+ + Reason for Visit + +--------+ + | Reason | Onset | Comments | | | Date | | + +--------+ + | Appointment | 08/13/ | | | | 2015 | | + +--------+ + Encounter Details +--------+ + + + + | Date | Type | Department | Care Team | Description | +--------+ + + + + | 08/13/ | Telephone | [facility] | [place], | Appointment | | 2016 | | CARDIOLOGY [address] | Isidra Lizama PA-C | | | | | [place], | [address] | | | | | [place] [address] | [place] | | | | | [phone] | [address] | | | | | | [phone] | | | | | | | [...] this encounter Miscellaneous Notes Telephone Encounter - Vandana Sr - 08/14/2015 2:08 PM PDTPatient called back, appoin tment was rescheduled to 08-27-15 at 2:[address] Michaud. elephone Encounter - Vandana Sr - 08/14/2015 2:02 PM Kate Vargas at Isidra Damon's office called, patient had called them to let them know th at she had a cardiology appointment on 09-03-15, Faith would like patient to be seen sooner . Called patient and left VMM for patient to call back, patient could be seen by Dr. Jaswant carlos 08-27-15 at 2:00. Will wait for patient to call back before rescheduling her appointment.E lectronically signed by Vandana Sr at 08/14/2015 2:04 PM PDTTelephone Encounter - Vandana Montgomery om - 08/14/2015 1:35 PM PDTPatient called back. Appointment was scheduled with Samir Huber on 09-03-15 at 10:30. P M PDTTelephone Encounter - Vandana Sr - 08/14/2015 1:26 PM PDTNew Patient cardiology appointment ready to be scheduled. Per received fax they are requesting appointment to be p rior to Dr. Lechuga's appointment scheduled on 09-03-15 so patient can have surgical clearance for Dr. Lechuga. Called patient and left VMM for patient to call back to schedule.Elizabeth renteria signed by Vandana Sr at 08/14/2015 1:28 PM PDTdocumented in this encounter Plan of Treatment Not on filedocumented as of this encounter Visit Diagnoses Not on filedocumented in this encounter"
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
--- OUTSIDE RECORDS SUMMARY | ~2019-09-14 | XMS | Encounter Summary ---
Demographics + + + | Address | [address] | | | [place] [address] | + + + | Home Phone | | + + + | Preferred Language | Unknown | + + + | Marital Status | | + + + | Gnosticist Affiliation | 1041 | + + + | Race | Unknown | + + + | Ethnic Group | Unknown | + + + Author + + + | Author | [facility] | | | and [place] | + + + | Organization | [facility] | | | and [place] | [...] Team Providers + +------+ + | Care Service Support Representative Name | Role | Phone | + +------+ + | Isidra Renteria PA-C | PCP | | + +------+ + Reason for Visit + + + | Reason | Comments | + + + | New Patient | | + + + | Pre-op Exam | Back surgery | + + + Evaluate & Treat (Routine) +--------+--------+ + + + + | Status | Reason | Specialty | Diagnoses / | Referred By | Referred To | | | | | Procedures | Contact | Contact | +--------+--------+ + + + + | Closed | | Cardiology | Diagnoses | | [facility] | | | | | Abnormal | [place], | Cardiology | | | | | EKG SURGERY | Isidra Lizama, | [address] | | | | | CLEARANCE | PA-C [address] | [address], | | | | | Procedures | NICOLA Kumar | [place] | | | | | STOCK ASSOCIATE | Ave | [address] | | | | | | [place], | Phone: | | | | | | [place] | [phone] | | | | | | [address] | Fax: | | | | | | Phone: | [phone] | | | | | | [phone] | | | | | | | Fax: | | | | | | | [phone] | | +--------+--------+ + + + + Encounter Details +--------+---------+ + + + | Date | Type | Department | Care Team | Description | +--------+---------+ + + + | 08/26/ | Office | [facility] | Jaswantmartirterrance Alice, | Abnormal EKG | | 2016 | Visit | CARDIOLOGY [address] | [address] | (Primary Dx); | | | | [address] [place], | [place], | Pre-operative exam | | | | [place] [address] | [place] [address] | | | | | [phone] | [phone] | | | | | | | | +--------+---------+ + + + Social History [...] + + + | Blood Pressure | 126/58 | 08/27/2015 1:51 PM | right arm | | | | PDT | | + + + + + | Pulse | 71 | 08/27/2015 1:39 PM | regular | | | | PDT | | + + + + + | Temperature | - | - | | + + + + + | Respiratory Rate | 16 | 08/27/2015 1:39 PM | | | | | PDT | | + + + + + | Oxygen Saturation | - | - | | + + + + + | Inhaled Oxygen | - | - | | | Concentration | | | | + + + + + | Weight | 93.5 kg (206 lb 3.2 | 08/27/2015 1:39 PM | | | | oz) | PDT | | + + + + + | Height | 162.6 cm (5' 4") | 08/27/2015 1:39 PM | | | | | PDT | | + + + + + | Body Mass Index | 35.39 | 08/27/2015 1:39 PM | | | | | PDT | | + + + + + documented in this encounter Progress Notes Alice Gilman MD - 08/27/2015 1:50 PM PDTFormatting of this note might be different f rom the original. PATIENT NAME: Rashad Crane : 1945: AGE: 70 y.o. REFERRED BY: Isidra Renteria PRIMARY CARE: Isidra Renteria PA-C NEW PATIENT OFFICE VISIT Date of Service: 08/27/15 HISTORY OF PRESENT ILLNESS: Rashad Crane is a 70 y.o. female with a history of chronic severe back pain, h yperlipidemia, hypertension, type II diabetes, hypothyroidism. She is being seen today for preop clearance prior to back surgery. Patient has been having chronic/progressive severe back pain and was seen by Dr. Lechuga who planned to perform 4 level of lumbar fusion. From cardiac standpoint, she is feeling good and has no specific cardiac complaints. She cannot walk far due to a back pain. However, s he can walk at least 2 blocks without any cardiac symptoms. There is no chest pain or chest discomfort both at rest and on exertion. Patient denies breathlessness. There is no palpit ation dizziness or lightheadedness. There is no ankle or leg swelling. Patient can sleep o n one pillow at night without difficulty breathing. CURRENT PROBLEMS Patient Active Problem List Diagnosis Hyperlipidemia, mixed Degenerative disc disease, lumbar Restless leg syndrome Arthritis Urge incontinence Bone spur- Right Shoulder MEDICAL, SURGICAL, AND PERSONAL HISTORY Past Surgical History Procedure Laterality Date Cholecystectomy 09/2013 Hammer toe surgery Left 2012 Appendectomy 2010 Parathyroidectomy 2007 [place], [place] Bladder suspension 2005 section 1975 [place] Family History Problem Relation Age of Onset Lung cancer Mother 80 Colon cancer Daughter 40 Heart disease Paternal Grandfather 90 Cancer Paternal Aunt Heart disease Other Uncle No Known Problems Father No Known Problems Paternal Grandmother No Known Problems Maternal Grandfather No Known Problems Maternal Grandmother Family Status Relation Status Age Mother 82 Daughter Alive Paternal Grandfather Alive Paternal Uncle Alive Child Alive Child Alive Father Other Not listed Maternal Grandfather Other Not listed Maternal Grandmother Other Not listed Paternal Grandmother Other Not listed Brother Alive History Social History Marital Status: Spouse Name: Tomas Number of Children: 3 Years of Education: N/A 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 gemfibrozil (LOPID) 600 mg tablet Take 600 mg by mouth Daily. hydrochlorothiazide 25 mg tablet Take 25 mg by mouth as needed. HYDROcodone-acetaminophen (NORCO) 5-325 mg per tablet Take 1 tablet by mouth every 8 ho urs as needed for Pain. ibuprofen (ADVIL,MOTRIN) 800 MG tablet Take 800 mg by mouth 3 times daily as needed for Pain. levothyroxine (SYNTHROID, LEVOTHROID) 100 mcg tablet Take 100 mcg by mouth Daily. lisinopril-hydrochlorothiazide (PRINZIDE,ZESTORETIC) 10-12.5 MG per tablet Take 1 table t by mouth Daily. metFORMIN (GLUCOPHAGE-XR) 500 mg 24 hr tablet Take 500 mg by mouth daily (with breakfas t). nitroglycerin (NITROSTAT) 0.[address] 0.4 mg under the tongue every 5 minute s as needed for Chest pain (Place 1 tablet under the tounge at onset chest pain. May repeat in 5 minutes. Call 911 if not resolved afer 2nd dose.). pramipexole (MIRAPEX) 0.5 MG tablet Take 0.5 mg by mouth. 2 tablets at night ranitidine (ZANTAC) 300 MG tablet No current facility-administered medications for this visit. ALLERGIES No Known Allergies ROS Review of Systems Constitutional: Negative for fever, chills, weight loss, malaise/fatigue and diaphoresis. HENT: Negative for congestion, hearing loss, nosebleeds, sore throat and tinnitus. Eyes: Negative for blurred vision and double vision. Respiratory: Negative for cough, shortness of breath and wheezing. Cardiovascular: Negative for chest pain, palpitations, orthopnea, claudication, leg swellin g and PND. Gastrointestinal: Positive for heartburn and constipation. Negative for nausea, vomiting, a bdominal pain, diarrhea, blood in stool and melena. Genitourinary: Negative for dysuria, urgency, frequency, hematuria and flank pain. Musculoskeletal: Positive for back pain. Negative for myalgias, joint pain, falls and neck pain. Skin: Negative for itching and rash. Neurological: Negative for dizziness, tingling, tremors, seizures, loss of consciousness, w eakness and headaches. Endo/Heme/Allergies: Positive for environmental allergies. Negative for polydipsia. Bruises /bleeds easily. Psychiatric/Behavioral: Negative for memory loss. The patient is nervous/anxious. The patie nt does not have insomnia. OBJECTIVE: PHYSICAL EXAM BP 126/58 mmHg | Pulse 71 | Resp 16 | Ht 1.626 m (5' 4") | Wt 93.532 kg (206 lb 3.2 oz) | B SD 35.38 kg/m2 Physical Exam Constitutional: She appears well-developed and well-nourished. No distress. Obese female individual without acute distress. Neck: Normal carotid pulses, no hepatojugular reflux and no JVD present. Carotid bruit is n ot present. Cardiovascular: Normal rate, regular rhythm, S1 normal, S2 normal, normal heart sounds, int act distal pulses and normal pulses. PMI is not displaced. Exam reveals no gallop, no S3, no S4 and no friction rub. No murmur heard. Pulses: Carotid pulses are 2+ on the right side, and 2+ on the left side. Dorsalis pedis pulses are 2+ on the right side, and 2+ on the left side. Pulmonary/Chest: Effort normal and breath sounds normal. No accessory muscle usage. No resp iratory distress. She has no wheezes. She has no rhonchi. She has no rales. Abdominal: Normal appearance, normal aorta and bowel sounds are normal. She exhibits no abd ominal bruit. There is no hepatosplenomegaly. There is no tenderness. Musculoskeletal: She exhibits no edema. Neurological: She is alert. Gait normal. Skin: Skin is warm and dry. Psychiatric: She has a normal mood and affect. Her mood appears not anxious. She does not e xhibit a depressed mood. ECG: Normal sinus rhythm, normal EKG. LAB RESULTS: LIPID No results found for: CHOL, TRIG, HDL, LDL, CHOLHDL, LDLEX, HDLEX, TRIGEX, CHOLEX CHEMISTRY No results found for: GLU, GLUEX, NA, NAEX, K, KEX, CL, CLEX, CO2, CO2EX, CALCIUM, ALKPHOS, AST, ASTEX, ALT, ALTEX, BILITOT, CREA, BUN, EGFR, EGFREX, CREEX HEMATOLOGY No results found for: WBC, WBCEX, HGB, HGBEX, HCT, HCTEX, PLT, PLTEX I reviewed records from [facility], for office visit on consider L3-L5 fusion. ASSESSMENT: 1. Preop clearance A.Today, patient is doing well from cardiac standpoint. She is asymptomatic but physicall y inactive because of back pain. However, she can walk at least 2 blocks without chest pain . There is no signs and symptoms of overt congestive heart failure. She is in a class I of [place] [employer] functional class. There is no fluid retention on physical exami nation. She is undergoing an elective, non-emergent surgery and would benefit from a cardiac risk assessment. Her Revised Cardiac Risk Index (RCRI) is calculated showing his risks include diabetes on insulin, which is 1 risk equating to Class II, estimated 0.9% risk of MACE. Th is is considered a low risk. Her Fraser Activity Status Index (DASI) score is calculated and shows she has a functional capacity of 4 METS and does not require any further testing. She is not on a beta jakub, and is on HMG CoA reductase inhibitor (statin). She does not r equire medication adjustment. Prior to proceeding with surgery, the risk and benefit of the procedure need to be discussed between patient and surgeon. 2. Chronic severe back pain 3. Hyperlipidemia 4. Hypertension A. good blood pressure. 5. Type II diabetes 6. Hypothyroidism. PLAN: 1. Patient is in her optimal condition to proceed back surgery. No need for any further c ardiac workup. 2. I recommend a therapeutic lifestyle change including walking 30 minutes a day, choosing healthy choices of diet , including DASH diet and weight reduction. 3. Follow-up as needed. Electronically signed by: Alice Gilman MD [facility] 08/27/2015 Portions of this chart may have been created with [employer] voice recognition software. Occasi onal wrong-word or sound-alike substitutions may have occurred due to the inherent palomo itations of voice recognition software. Please read the chart carefully and recognize, using context, where these substitutions have occurred. documented in this encounter Plan of Treatment Not on filedocumented as of this encounter Procedures + +--------+ + + + | Procedure Name | Priori | Date/Time | Associated Diagnosis | Comments | | | ty | | | | + +--------+ + + + | ECG 12 LEAD | Routin | 08/27/2015 | Abnormal EKG | Results for this | | | e | 1:37 PM | Pre-operative exam | procedure are in the | | | | PDT | | results section. | + +--------+ + + + documented in this encounter Results ECG 12 lead (08/27/2015 1:37 PM PDT) + + + + + + | Component | Value | Ref Range | Performed | Pathologist | | | | | At | Signature | + + + + + + | VENTRICULAR | 71 | BPM | [facility] | | | RATE EKG | | | | | + + + + + + | ATRIAL RATE | 71 | BPM | [facility] | | + + + + + + | P-R | 192 | ms | [facility] | | | INTERVAL | | | | | + + + + + + | QRS | 70 | ms | [facility] | | | DURATION | | | | | + + + + + + | Q-T | 378 | ms | [facility] | | | INTERVAL | | | | | + + + + + + | Q-T | 410 | ms | [facility] | | | INTERVAL | | | | | | (CORRECTED) | | | | | + + + + + + | P WAVE AXIS | 40 | degrees | [facility] | | + + + + + + | QRS AXIS | 12 | degrees | [facility] | | + + + + + + | T AXIS | 49 | degrees | [facility] | | + + + + + + | INTERPRETAT | Normal sinus | | [facility] | | | ION TEXT | rhythmNormal ECGNo | | | | | | previous ECGs | | | | | | availableConfirmed by | | | | | | CRISTINA TAVAREZ, ALICE | | | | | | ([id number]) on 08/27/2015 | | | | | | 4:56:10 PM | | | | + + + [...] + | Diagnosis | + + | Abnormal EKG - Primary Nonspecific abnormal electrocardiogram (ECG) (EKG) | + + | Pre-operative exam Preoperative examination, unspecified | + + documented in this encounter
--- OUTSIDE RECORDS SUMMARY | ~2019-09-14 | XMS | Encounter Summary ---
Demographics + + + | Address | [address] | | | [place] [address] | + + + | Home Phone | | + + + | Preferred Language | Unknown | + + + | Marital Status | | + + + | Judaism Affiliation | 1041 | + + + | Race | Unknown | + + + | Ethnic Group | Unknown | + + + Author + + + | Author | [facility] | | | and [place] | + + + | Organization | [facility] | | | and [...] Team Providers + +------+ + | Care Surgery Scheduler Name | Role | Phone | + +------+ + | Isidra Renteria PA-C | PCP | | + +------+ + Encounter Details +--------+ + + + + | Date | Type | Department | Care Team | Description | +--------+ + + + + | 11/25/ | Orders Only | [facility] | Riccardo Lechuga, | Kyphoscoliosis | | 2016 | | NEUROSURGERY [address] | DO [address] | (Primary Dx); Status | | | | [address] | [address] [place], [place] | post lumbar spinal | | | | [place], [place] | [address] | fusion | | | | [address] | | | | | | [phone] | | | +--------+ + + + [...] filedocumented as of this encounter Results XR Lumbar Spine 2 or 3 Vw (12/26/2015 7:27 AM PDT) + + | Specimen | + + | | + + + + + | Narrative | Performed At | + + + | XR LUMBAR SPINE 2 OR 3 VW 12/26/2015 7:27 AM HISTORY: S/P Lumbar | [facility] | | Fusion. COMPARISON: Multiple priors. FINDINGS: Mild left | [facility] | | curvature of the lumbar spine is seen. There is stable hardware for | [facility] | | posterior fusion from L2 through S1 with spacer hardware at these | - IMAGING | | levels. The hardware are intact. Mild to moderate spondylosis is | | | observed. Minimal anterolistheses are observed of L2 over L3 and L4 | | | over L5. Bone mineralization is normal. Vertebral body height are | | | preserved with no evidence for compression fractures. Disc height are | | | maintained. Facet joints are intact. Visualized ribs and pelvic | | | osseous structures show no acute findings. Cholecystectomy clips are | | | present. IMPRESSION - Stable posterior fusion from L2 through S1. | | | Dictated and Signed by: Brandon Rodriguez MD Electronically | | | signed: 12/26/2015 9:20 AM | | + + + + + | Procedure Note | + + | Segre, Rad Results In - 12/26/2015 9:23 AM PDT XR LUMBAR SPINE 2 OR 3 VW 12/26/2015 | | 7:27 AMHISTORY: S/P Lumbar Fusion.COMPARISON: Multiple priors.FINDINGS:Mild left | | curvature of the lumbar spine is seen. There is stable hardware forposterior fusion from | | L2 through S1 with spacer hardware at these levels. Thehardware are intact. Mild to | | moderate spondylosis is observed. Minimalanterolistheses are observed of L2 over L3 and | | L4 over L5. Bone mineralizationis normal. Vertebral body height are preserved with no | | evidence for compressionfractures. Disc height are maintained. Facet joints are intact. | | Visualized ribsand pelvic osseous structures show no acute findings. Cholecystectomy | | clips arepresent.IMPRESSION -Stable posterior fusion from L2 through S1.Dictated and | | Signed by: Brandon Rodriguez MD Electronically signed: 12/26/2015 9:20 AM | |anterolistheses are observed of L2 over [...] Brandon Rodriguez MD | | Electronically signed: 12/26/2015 9:20 AM | + + + + + + + | Performing | Address | City/State/Zipcode | Phone Number | | Organization | | | | + + + + + | [facility] [facility] | [address] | [place] | [phone] | | [facility] | | [address] | | | - IMAGING | | | | + + + + + documented in this encounter Visit Diagnoses + + | Diagnosis | + + | Kyphoscoliosis - Primary Scoliosis (and kyphoscoliosis), idiopathic | + + | Status post lumbar spinal fusion Arthrodesis status | + + documented in this encounter"
--- OUTSIDE RECORDS SUMMARY | ~2019-09-14 | XMS | Encounter Summary ---
Demographics + + + | Address | [address] | | | [place] [address] | + + + | Home Phone | | + + + | Preferred Language | Unknown | + + + | Marital Status | | + + + | Gnosticist Affiliation | 1041 | + + + | Race | Unknown | + + + | Ethnic Group | Unknown | + + + Author + + + | Author | [facility] | | | and [place] | + + + | Organization | [facility] | | | and [place] [...] Team Providers + +------+ + | Care Laborer [employer] Name | Role | Phone | + +------+ + | Isidra Renteria PA-C | PCP | | + +------+ + Encounter Details +--------+ + + + + | Date | Type | Department | Care Team | Description | +--------+ + + + + | 11/13/ | Hospital | [facility] | Riccardo Lechuga, | | | 2016 | Encounter | [facility] | DO [address] | | | | | [address] [place] | [address] [place] | | | | | [place] | [address] | | | | | [address] | | | | | | [phone] | Eugene Palmer MD | | | | | | [address] | | | | | | [place], [place] | | | | | | [id number] | | | | | | | [...] | 0 | //20 | | | (LIPITOR) 40 mg | [...] mg by mouth | | 0 | /1520 | | | hydrochlorothiazide | Daily. | [...] + +---------+ + + | | Take 2 tablets by | | 0 | | | | HYDROcodone-acetamin | mouth every 6 hours | | | | 6 | | ophen (NORCO) 5-325 | as needed for Pain. | | | | | | mg per tablet | | | | | | + + + +---------+ + + | ibuprofen | Take 800 mg by mouth | | 0 | | | | (ADVIL,MOTRIN) 800 | 3 times daily as | | | | 6 | | MG tablet | needed for Pain. | | | | | + + [...]
--- OUTSIDE RECORDS SUMMARY | ~2019-09-14 | XMS | Encounter Summary ---
Demographics + + + | Address | [address] | | | [place] [address] | + + + | Home Phone | | + + + | Preferred Language | Unknown | + + + | Marital Status | | + + + | Orthodox Affiliation | 1041 | + + + | Race | Unknown | + + + | Ethnic Group | Unknown | + + + Author + + + | Author | [facility] | | | and [place] | + + + | Organization | [facility] | | | and [...] Team Providers + +------+ + | Care Head Of Integrated Media Name | Role | Phone | + [...] | mixed; Degenerative | | | | [address] | [address] [place], [place] | disc disease, | | | | [place], [place] | [address] | lumbar; Restless leg | | | | [address] | | syndrome; | | | | [phone] | | Arthritis; Urge | | | [...] + +--------+ + + + | XR CHEST PA AND | Routin | 11/14/2015 | Hyperlipidemia, | Results for this | | LATERAL | e | 11:48 AM | mixed Degenerative | procedure are [...] + documented in this encounter Results XR Chest PA and [...] | + + + + + | [address] | [address] | [place], [place] | [phone] | | [facility] | | [address] | | | - IMAGING | | [...]
--- OUTSIDE RECORDS SUMMARY | ~2019-09-14 | XMS | Encounter Summary ---
Demographics + + + | Address | [address] | | | [place] [address] | + + + | Home Phone | | + + + | Preferred Language | Unknown | + + + | Marital Status | | + + + | Sabianism Affiliation | 1041 | + + + | Race | Unknown | + + + | Ethnic Group | Unknown | + + + Author + + + | Author | [facility] | | | and [place] | + + + | Organization | [facility] | | | and [place] | [...] Team Providers + +------+ + | Care Financial Advisor Trainee Name | Role | Phone | + +------+ + | Isidra Renteria PA-C | PCP | | + +------+ + Encounter Details +--------+ + + + + | Date | Type | Department | Care Team | Description | +--------+ + + + + | 07/31/ | Hospital | [facility] | Riccardo Lechuga, | Back pain | | 2016 | Encounter | MED CTR XRAY [address] | DO [address] | | | | | [place] | [address] [place], [place] | | | | | [place] [address] | [address] | | | | | [phone] | | | +--------+ + + + [...] at Time of Discharge + + + +---------+--------+ + | Medication | Sig | Dispensed | Refills | Start | End Date | | | | | | Date | | + + + +---------+--------+ + | citalopram | Take 20 mg by mouth | | 0 | | | | (CELEXA) 40 mg | Daily. | | | | | | tablet | | | | | | + + + +---------+--------+ + | EPINEPHrine | Inject 0.3 mg into | | 0 | | | | (EPIPEN) 0.3 mg/0.3 | the muscle as needed | | | | | | mL injection | for Anaphylaxis. | | | | | + + + +---------+--------+ + | estradiol | Take 0.5 mg by mouth | | 0 | | | | (ESTRACE) 0.5 mg | Daily. | | | | | | tablet | | | | | | + + + +---------+--------+ + | gemfibrozil | Take 600 mg by mouth | | 0 | | | | (LOPID) 600 mg | Daily. | | | | | | tablet | | | | | | + + + +---------+--------+ + | levothyroxine | Take 100 mcg by | | 0 | | | | (SYNTHROID, | mouth Daily. | | | | | | LEVOTHROID) 100 mcg | | | | | | | tablet | | | | | | + + + +---------+--------+ + | | Take 1 tablet by | | 0 | | | | lisinopril-hydrochlo | mouth Daily. | | | | | | rothiazide | | | | | | | (PRINZIDE,ZESTORETIC | | | | | | | ) 10-12.5 MG per | | | | | | | tablet | | | | | | + + + +---------+--------+ + | nitroglycerin | Place 0.4 mg [...] | | | | + + + +---------+--------+ + | pramipexole | Take 0.5 mg by | | 0 | | | | (MIRAPEX) 0.5 MG | mouth. 3 tablets at | | | | | | tablet | night | | | | | + + + +---------+--------+ + | albuterol 90 | Inhale 2 puffs into | | 0 | | | | mcg/puff inhaler | the lungs every 6 | | | | 6 | | | hours as needed for | | | | | | | Wheezing. | | | | | + + + +---------+--------+ + | gabapentin | Take 600 mg by mouth | | 0 | | | | (NEURONTIN) 300 mg | nightly. | | | | 7 | | capsule | | | | | | + + + +---------+--------+ + | | Take 2 tablets by | | 0 | | | | HYDROcodone-acetamin | mouth every 6 hours | | | | 6 | | ophen (NORCO) 5-325 | as needed for Pain. | | | | | | mg per tablet | | | | | | + + + +---------+--------+ + | ibuprofen | Take 800 mg by mouth | | 0 | | | | (ADVIL,MOTRIN) 800 | 3 times daily as | | | | 6 | | MG tablet | needed for Pain. | | | | | + + + +---------+--------+ + | Multiple | Take 1 tablet by | | 0 | | | | Vitamins-Minerals | mouth Daily. | | | | 6 | | (JILL MULTIVITAMIN | | | | | | | FOR WOMEN) TABS | | | | | | + + + +---------+--------+ + | Ranitidine HCl | Take 2 tablets by | | 0 | | | | (ZANTAC 150 MAXIMUM | mouth Daily. | | | | 6 | | STRENGTH PO) | | | | | | + + + +---------+--------+ + documented as of this encounter Plan of Treatment Not on filedocumented as of this encounter Procedures + +--------+ + + + | Procedure Name | Priori | Date/Time | Associated Diagnosis | Comments | | | ty | | | | + +--------+ + + + | XR LUMBAR SPINE 4 + | Routin | 08/01/2015 | Back pain | Results for this | | VW | e | 7:55 AM | | procedure are in the | | | | PDT | | results section. | + +--------+ + + + documented in this encounter Results XR Lumbar Spine 4 + Vw (08/01/2015 7:55 AM PDT) + + | Specimen | + + | | + + + + + | Narrative | Performed At | + + + | XR LUMBAR SPINE 4 + VW 08/01/2015 7:53 AM HISTORY: Back pain. | [facility] | | COMPARISON: None. FINDINGS: Mild to moderate levoscoliosis of | [facility] | | the lumbar spine is present. Moderate spondylosis is seen. There is | [facility] | | minimal anterolisthesis of L4 over L5 and mild anterolisthesis of L5 | - IMAGING | | over S1 with no instability during flexion and extension. Bone | | | mineralization is normal. Vertebral body height are preserved with no | | | evidence for compression fractures. Moderate to severe disc narrowing | | | are observed from L2-3 through L4-5. There is mild disc narrowing at | | | L5-S1. Multilevel vacuum discs are present. Facet hypertrophy and | | | sclerosis are observed at multiple levels. Visualized ribs and pelvic | | | osseous structures show no acute findings. Mild degenerative changes | | | are seen of the hips. Cholecystectomy clips are noted. Pelvic | | | phleboliths are observed. IMPRESSION - Mild to moderate | | | levoscoliosis of lumbar spine along with multilevel degenerative | | | changes, no evidence for instability. Dictated and Signed by: | | | Brandon Rodriguez MD Electronically signed: 08/01/2015 9:40 AM | | + + + + + | Procedure Note | + + | Serge, Rad Results In - 08/01/2015 9:43 AM PDT XR LUMBAR SPINE 4 + VW 08/01/2015 7:53 | | AMHISTORY: Back pain.COMPARISON: None.FINDINGS:Mild to moderate levoscoliosis of the | | lumbar spine is present. Moderatespondylosis is seen. There is minimal anterolisthesis | | of L4 over L5 and mildanterolisthesis of L5 over S1 with no instability during flexion | | and extension.Bone mineralization is normal. Vertebral body height are preserved with | | noevidence for compression fractures. Moderate to severe disc narrowing areobserved from | | L2-3 through L4-5. There is mild disc narrowing at L5-S1.Multilevel vacuum discs are | | present. Facet hypertrophy and sclerosis areobserved at multiple levels. Visualized ribs | | and pelvic osseous structures showno acute findings. Mild degenerative changes are seen | | of the hips.Cholecystectomy clips are noted. Pelvic phleboliths are observed.IMPRESSION | | -Mild to moderate levoscoliosis of lumbar spine along with multileveldegenerative | | changes, no evidence for instability.Dictated and Signed by: Brandon Rodriguez MD | | Electronically signed: 08/01/2015 9:40 AM | |Multilevel vacuum discs are present. Facet hypertrophy and sclerosis are | |observed at multiple levels. Visualized ribs and pelvic osseous structures show | |no acute findings. Mild degenerative changes are seen of the hips. | |Cholecystectomy clips are noted. Pelvic phleboliths are observed. | | | |IMPRESSION - | |Mild to moderate levoscoliosis of lumbar spine along with multilevel | |degenerative changes, no evidence for instability. | | | |Dictated and Signed by: Brandon Rodriguez MD | | Electronically signed: 08/01/2015 9:40 AM | + + + + + + + | Performing | Address | City/State/Zipcode | Phone Number | | Organization | | | | + + + + + | [facility] | [address] | [place] | [phone] | | [facility] | | [address] | | | - IMAGING | | | | + + + + + documented in this encounter Visit Diagnoses + + | Diagnosis | + + | Back pain Backache, unspecified | + + documented in this encounter"
--- OUTSIDE RECORDS SUMMARY | ~2019-09-14 | XMS | Encounter Summary ---
Demographics + + + | Address | [address] | | | [place] [address] | + + + | Home Phone | | + + + | Preferred Language | Unknown | + + + | Marital Status | | + + + | Voodoo Affiliation | 1041 | + + + | Race | Unknown | + + + | Ethnic Group | Unknown | + + + Author + + + | Author | [facility] | | | and [place] | + + + | Organization | [facility] | | | and [place] | [...] Team Providers + +------+ + | Care Tool Design Drafter Name | Role | Phone | + +------+ + | Isidra Renteria PA-C | PCP | | + +------+ + Encounter Details +--------+ + + + + | Date | Type | Department | Care Team | Description | +--------+ + + + + | 11/13/ | Hospital | [facility] | Riccardo Lechuga, | | | 2016 | Encounter | MED CTR XRAY [address] | DO [address] | | | | | [place] | [address] [place], [place] | | | | | [place] [address] | [address] | | | | | [phone] | | | +--------+ + + + [...] mg by mouth | | 0 | // | | | (LIPITOR) 40 mg | [address] | [place] | [phone] | | [facility] | | [address] | | | - IMAGING | | | | + + + + + documented in this encounter Visit Diagnoses Not on filedocumented in this encounter"
--- OUTSIDE RECORDS SUMMARY | ~2019-09-14 | XMS | Encounter Summary ---
Demographics + + + | Address | [address] | | | [place] [address] | + + + | Home Phone | | + + + | Preferred Language | Unknown | + + + | Marital Status | | + + + | Tenriism Affiliation | 1041 | + + + | Race | Unknown | + + + | Ethnic Group | Unknown | + + + Author + + + | Author | [facility] | | | and [place] | + + + | Organization | [facility] | | | and [place] [...] Team Providers + +------+ + | Care Computer Scientist Name | Role | Phone | + +------+ + | Isidra Renteria PA-C | PCP | | + +------+ + Reason for Visit + +--------+ + | Reason | Onset | Comments | | | Date | | + +--------+ + | Medication Question | 12/07/ | | | | 2015 | | + +--------+ + Encounter Details +--------+ + + + + | Date | Type | Department | Care Team | Description | +--------+ + + + + | 12/07/ | Telephone | [facility] | Riccardo Lechuga, | Medication Question | | 2015 | | NEUROSURGERY [address] | DO [address] | | | | | [facility] [address] | [address] [place], [place] | | | | | [place], [place] | [id number] | | | | | [address] | | | | | | [phone] | | | +--------+ + + + [...] this encounter Miscellaneous Notes Telephone Encounter - Rene Pillai Cert MA - 12/09/2015 9:11 AM PDTNartez called today. I explained to her that the Medrol Dospak is not typically something that we continue to pr escribe as it's usually a one time Rx. She is also now in [place] and cannot get Rx's from u s while there. She reports doing well otherwise RENE PILLAI elephone EncounRene Chiang Cert MA - 12/08/2015 1:55 PM PDTVM left for Nark[place] requesting a call jun fu elephone EncounAlicia Short - 12/08/2015 10:48 AM PDTPatient left message via [employer]: "I ne ed to get a refill on my methylprednisolone."Electronically signed by Alicia Weems at 05/2015 10:50 AM PDTdocumented in this encounter Plan of Treatment Not on filedocumented as of this encounter Visit Diagnoses Not on filedocumented in this encounter
--- OUTSIDE RECORDS SUMMARY | ~2019-09-14 | XMS | Encounter Summary ---
Demographics + + + | Address | [address] | | | [place] [address] | + + + | Home Phone | | + + + | Preferred Language | Unknown | + + + | Marital Status | | + + + | Mormon Affiliation | 1041 | + + + | Race | Unknown | + + + | Ethnic Group | Unknown | + + + Author + + + | Author | [facility] | | | and [place] | + + + | Organization | [facility] | | | and [place] [...] Team Providers + +------+ + | Care Lye Bath Operator Name | Role | Phone | [...] | | | | | | | [place] | | | | | | | [...] + + + + | 11/30/ | Anesthesia | MELITON FRANCOIS | Marcellus Hoff | | | 2016 | Event | [facility] | MD [facility] [address] | | | | | [address] | [address] [place] | | | | | [place], [place] | [place] [address] | | | | | [address] | [phone] | | | | | [phone] | | | +--------+ + + + + Anesthesia Record + + + + + | Procedure Name | Responsible | Anesthesia Start | Anesthesia Stop Time | | | Anesthesiologist | Time | | + + + + + | L2-3, L3-4, L4-5 | Marcellus Martinez | 12/01/15 0741 | 12/01/15 1224 | | Lateral Anterior | MD Luis Eduardo | | | | Interbody Fusion w/ | | | | | L5-S1 Transforaminal | | | | | Lumbar Interbody | | | | | Fusion (Right Spine | | | | | Lumbar) | | | | + + + + + +----+---+ + + | Da | T | Event | Comment | | te | i | | | | | m | | | | | e | | | +----+---+ + + | 09 | 0 | An Checkout | Pre-use anesthesia machine/equipment checkout. | | /2 | 6 | | | | 6/ | 3 | | | | 20 | 5 | | | | 16 | | | | +----+---+ + + | | 0 | | | | | 7 | | | | | 2 | | | | | 8 | | | +----+---+ + + | | 0 | Quick Note | PO tylenol and gabapentin given in pre-op | | | 7 | | | | | 3 | | | | | 0 | | | +----+---+ + + | | 0 | Quick Note | Awaiting OR to be ready | | | 7 | | | | | 3 | | | | | 5 | | | +----+---+ + + | | 0 | Quick Note | Extensive discussion regarding risk of positioning with piercings | | | 7 | | staying in place - documented in pre-op note. | | | 3 | | | | | 8 | | | +----+---+ + + | | 0 | An Start | Reassessment prior to anesthesia induction/procedure. | | | 7 | | | | | 4 | | | | | 1 | | | +----+---+ + + | | 0 | Antibiotic | | | | 7 | Given | | | | 4 | | | | | 4 | | | +----+---+ + + | | 0 | Preoxygenat | | | | 7 | ed | | | | 4 | | | | | 6 | | | +----+---+ + + | | 0 | An | | | | 7 | Induction | | | | 4 | | | | | 7 | | | +----+---+ + + | | 0 | An | | | | 7 | Intubation | | | | 4 | | | | | 9 | | | +----+---+ + + | | 0 | AN Bite | | | | 7 | Block | | | | 5 | | | | | 3 | | | +----+---+ + + | | 0 | an jen now | | | | 7 | | | | | 5 | | | | | 7 | | | +----+---+ + + | | 0 | [place] | | | | 8 | 43-degrees | | | | 1 | | | | | 4 | | | +----+---+ + + | | 0 | First | | | | 8 | Inc/Proc St | | | | 1 | | | | | 5 | | | +----+---+ + + | | 0 | Pre-Procedu | | | | 8 | ral Timeout | | | | 1 | Completed | | | | 6 | | | +----+---+ + + | | 0 | Quick Note | Local by surgeon | | | 8 | | | | | 1 | | | | | 6 | | | +----+---+ + + | | 0 | Breathing | | | | 8 | Spontaneous | | | | 2 | ly | | | | 0 | | | +----+---+ + + | | 0 | Quick Note | CO2 absorber changed | | | 8 | | | | | 4 | | | | | 3 | | | +----+---+ + + | | 0 | an jen now | | | | 9 | | | | | 1 | | | | | 6 | | | +----+---+ + + | | 0 | Quick Note | Patient positioned in Prone Position with assistance of surgical | | | 9 | | team and OR staff. Eyes lubricated and tegaderms placed prior | | | 2 | | Face supported in foam face-mask with no pressure from ETT or | | | 0 | | temp probe. Eyes checked and free of pressure. Neck in neutral | | | | | position. Arms less than 90 degrees and PPP. Final position | | | | | confirmed with surgeon before proceeding. | +----+---+ + + | | 0 | an jen now | | | | 9 | | | | | 2 | | | | | 3 | | | +----+---+ + + | | 0 | Quick Note | Incision on back | | | 9 | | | | | 3 | | | | | 9 | | | +----+---+ + + | | 0 | Quick Note | Surgeon requesting paralytics to facilitate O-arm use | | | 9 | | | | | 4 | | | | | 4 | | | +----+---+ + + | | 1 | an jen now | | | | 1 | | | | | 5 | | | | | 5 | | | +----+---+ + + | | 1 | [place] off | | | | 2 | | | | | 0 | | | | | 7 | | | +----+---+ + + | | 1 | AN No | TOF 4/4 with sustained tetanus. | | | 2 | Residual | | | | 1 | NMB | | | | 1 | | | +----+---+ + + | | 1 | Breathing | | | | 2 | Spontaneous | | | | 1 | ly | | | | 1 | | | +----+---+ + + | | 1 | Moving | | | | 2 | Purposefull | | | | 1 | y | | | | 5 | | | +----+---+ + + | | 1 | Extubated | | | | 2 | Awake | | | | 1 | | | | | 5 | | | +----+---+ + + | | 1 | an stop | | | | 2 | data | | | | 1 | | | | | 8 | | | +----+---+ + + | | 1 | An Stop | Patient handed off to recovery nurse. | | | 2 | | | | | 4 | | | +----+---+ + + +------+ | Meds | +------+ + + + | Name | Total | + + + | fentaNYL | 100 mcg | + + + | propofol (DIPRIVAN) injection | 220 mg | | (bolus) (20 mL) | | + + + | propofol | 958.62 mg | + + + | lidocaine 1% | 100 mg | + + + | rocuronium | 20 mg | + + + | succinylcholine | 100 mg | + + + | Phenylephrine 100mcg/mL SYRINGE | 500 mcg | + + + | ePHEDrine | 20 mg | + + + | dexamethasone | 10 mg | + + + | ondansetron | 4 mg | + + + | ketamine | 75 mg | + + + | magnesium sulfate | 2 g | + + + | ceFAZolin (ANCEF, KEFZOL) 2 g in | 2 g | | sodium chloride 0.9% 50 mL IVPB | | + + + | albuterol MDI | 8 puff | + + + | HYDROmorphone | 2 mg | + + + | dexmedetomidine (Bolus) | 20 mcg | + + + | lactated ringers (LR) infusion | 2,300 mL | + + + + + | Name | + + | N2O Flow Rate (L/Min) | + + | O2 Flow Rate (L/Min) | + + | Insp O2 | + + | Exp SEV | + + | Exp JUSTO | + + | Air Flow Rate (L/Min) | + + + + | No blood administrations on file. | + + +--------+ + + + | Type | Details | Placement | Removal | +--------+ + + + | Periph | 12/01/15; 706; Left; Mid; | 12/01/15706 by | 12/02/151954 by | | eral | Forearm; 18 gauge, 03/10 in | Nikhil Gamboa RN | Karen Raman RN | | IV | length; Hematology, Chemistry, | | | | | Coagulation, Blood Bank; | | | | | distraction, intradermal | | | | | injection, tolerated well; site | | | | | symptomatic; changed to different | | | | | LDA type; 12/02/15; 1954 | | | +--------+ + + + | Urethr | 12/01/15; 0824; indicated due to | 12/01/15 0824 by | 12/01/15 1142 by | | al | specific surgical procedure; | Rafa Martinez RN | Oziel Mallory RN | | Cathet | indwelling double lumen catheter; | | | | er | 100% silicone; 16; ; 10; 10; | | | | | urethral catheter removed, tubing | | | | | intact; short term use; | | | | | 12/01/15; 1142 | | | +--------+ + + + | Airway | Placement Date: 12/01/15; | 12/01/15824 by | 12/01/15 1215 by | | | Placement Time: 824 (created via | Marcellus Martinez | Marcellus Martinez | | | procedure documentation); Mask | MD Luis Eduardo | MD Luis Eduardo | | | Ventilation: EZ; Airway Grade: 1; | | | | | Successful Technique: video | | | | | scope; Laryngoscope Blade Size: | | | | | 3; Attempts: 1; Airway Type: | | | | | endotracheal; Size: 7; Airway | | | | | Tube Secured At: 21; Other | | | | | Equipment: stylette; Placement | | | | | Check: exhaled CO2 detection | | | | | device, bilateral chest rise, | | | | | breath sounds equal bilaterally; | | | | | Removal Date: 12/01/15; Removal | | | | | Time: 121; Additional Comments: | | | | | EZ BMV, Grade I with Schmitz. | | | | | Soft bite block placed after | | | | | examining airway for signs of | | | | | trauma. Atraumatic airway | | | | | manipulation. | | | +--------+ + + + | Read | 12/01/15; 0949; Bilateral; back; | 12/01/15 0949 by | 05/30/18 1342 by | | only - | 05/30/18 (Completed/Removed by | Megan Menjivar | User Epic | | | Utility); 1342 (Completed/Removed | CONY Boateng | | | Incisi | by Utility) | | | | on | | | | +--------+ + + + | Read | 12/01/15; 0949; Right; flank; | 12/01/15 0949 by | 05/30/18 1342 by | | only - | 05/30/18 (Completed/Removed by | Megan Menjivar | User Epic | | | Utility); 1342 (Completed/Removed | CONY Boateng | | | Incisi | by Utility) | | | | on | | | | +--------+ + + + | Drain/ | 12/01/15; 1141; #1; Left; back; | 12/01/15 1141 by | 12/04/15 1405 by | | Device | collapsible closed device; 10fr | Oziel Mallory RN | Raudel Gallardo RN | | Site | [place]; per protocol/policy, | | | | | tip intact; healing within | | | | | expectations; 12/04/15; 1405 | | | +--------+ + + + documented in this encounter Social History + + + +--------+ + [...] + + documented as of this encounter OR Notes Anesthesia Postprocedure Evaluation - Marcellus Hoff MD - 12/01/2015 12:25 PM PDTFo rmatting of this note might be different from the original. ANESTHESIA POSTANESTHESIA EVALUATION Rashad Stewartkatherinejoseph Crane 70 y.o. female 1945 [id number] Receiving IV pain meds- improving. Procedure(s) L2-3, L3-4, L4-5 Lateral Anterior Interbody Fusion w/ L5-S1 Transforaminal Rossy mbar Interbody Fusion (Right Spine Lumbar) Cooperates? Yes Mental Status Performs simple tasks. Respiratory Satisfactory - Airway patent (self maintained). Cardiovascular Satisfactory Blood pressure and heart rate acceptable Temperature Satisfactory Pain Satisfactory N/V Control Satisfactory Hydration Satisfactory No signs of dehydration Complications None apparent Filed Vitals: 12/01/15 0600 12/01/15 1220 BP: 124/65 149/59 Pulse: 70 80 Temp: 36.2 C (97.2 F) 36.8 C (98.2 F) Resp: 18 14 SpO2: 94% 95% Electronically signed by Marcellus Hoff MD 12/01/2015 12:25 [facility] nesthesia Proc edure Notes - Marcellus Hoff MD - 12/01/2015 8:24 AM PDTAssociated Order(s): ANE RW NOTEAnesthesia Airway Placement Preprocedure check: patient identified, oxygen, airway assessed, suction, airway equipment checked and patient reassessment prior to induction Rapid Sequence Induction: no Mask ventilation: easy Successful technique: videoscope Laryngoscope blade size: 3 Airway grade: 1 (Full view of glottis) Other equipment: stylette Attempts: 1 Airway type: endotracheal Size: 7 Cuffed: cuffed Route, reference point: right side of mouth Tube depth: 21 cm Tube secured with: adhesive tape Trauma: none Tube placement verification: bilateral chest rise, equal bilateral breath sounds and carbon dioxide detection Performing provider: MARCELLUS HOFF Assisted by: PAIGE BARCLAY Comments: EZ BMV, Grade I with Schmitz. Soft bite block placed after examining airway for s igns of trauma. Atraumatic airway manipulation. Electronically Signed by: Marcellus Hoff MD ESig date/time: 8:24 nesthesia Prep rocedure Evaluation - Marcellus Hoff MD - 12/01/2015 7:28 AM PDT ANESTHESIA PREANESTHESIA EVALUATION Rashad Crane 70 y.o. female 1945 [id number] Procedure(s): L2-3, L3-4, L4-5 Lateral Anterior Interbody Fusion w/ L5-S1 Transforaminal Rossy mbar Interbody Fusion (Right ) Medical history, anesthesia, medications, allergy, NPO status verified histories reviewed. ECG reviewed. Labs reviewed. Review of Systems / Med History Anesthesia History No anesthesia complications. (-) PONV, difficult intubation Cardiovascular (+) hypertension, CAD (Abnormal EKG) (+) Valvular disease , Exercise tolerance >4 METS , E xercise tolerance comment: Limited by back pain Pulmonary (+) asthma, smoking history (Quit roughly 10-12 months ago)(+) sleep apnea: at risk Neurology List pain as "7/10" at baseline - watching TV currently.. (+) back pain, weakness, numbness/tingling, chronic pain (back) Psychology (+) depression Renal Lab Results Component Value Date CREA 0.62 11/14/2015 BUN 23* 11/14/2015 NA 140 11/14/2015 K 3.3* 11/14/2015 CL 107 11/14/2015 CO2 25 11/14/2015 . Gastrointestinal/Hepatic (+) reflux/GERD (On H2 jakub), hyperlipidemia Endocrine No results found for: HBA1C Glucose 123 in pre-op . (+) Diabetes: type 2, NIDDM Other Lab Results Component Value Date WBC 8.6 11/14/2015 HGB 12.5 11/14/2015 HCT 37.9 11/14/2015 MCV 90.3 11/14/2015 PLT 285 11/14/2015 . (+) arthritis(-) anemia, thrombocytopenia Physical Exam Airway MP III, TM >3 FB, Mouth opening >2 FB. Neck: full ROM, extends <30 degrees. Jaw protru tess normal. Dental ; (+) Chipped/Broken teeth.(-) loose teeth. CV cardiovascular normal Rhythm regular. Rate normal. Pulm Clear to auscultation bilaterally. Neuro Grossly normal. Other Two piercings in left lower lip - unable to remove Multiple piercings in bilateral ears - unable to remove Anesthesia Plan ASA 3 Type: General. Induction: Intravenous. Potential problems: None anticipated. Monitors: Standard ASA monitors. Consent statement:Anesthetic plan, alternatives, risks and benefits discussed with patient. Risks discussed included (but were not limited to): backache, pain, voice injury, blindness , perioperative CV events, delirium, blood transfusion, ICU placement, respiratory events, d ental injury, muscle aches, sore throat, nausea, . Consenting person understands and agrees to proceed. PARQ. Extensive discussion regarding potential pain control issues, risk of blindness from positi oning and pulmonary and cardiac events. With and pre-op RN at bedside - extensive discussion regarding risk of rogers and pr essure complications from piercings remaining in place for both the lateral and prone positi ons. Both understand risks and still wish to proceed with surgery. Explained that this would be extensively documented pre-op.. documented in t his encounter Plan of Treatment Not on filedocumented as of this encounter Procedures + +--------+ + + + | Procedure Name | Priori | Date/Time | Associated Diagnosis | Comments | | | ty | | | | + +--------+ + + + | ANE AIRWAY NOTE | Routin | 12/01/2015 | | Results for this | | | e | 8:25 AM | | procedure are in the | | | | PDT | | results section. | + +--------+ + + + documented in this encounter Results Anesthesia Airway Note (12/01/2015 8:25 AM PDT) + + + | Narrative | Performed At | + + + | Marcellus Hoff MD 12/01/2015 8:25 Anesthesia Airway | | | Placement Preprocedure check: patient identified, oxygen, airway | | | assessed, suction, airway equipment checked and patient reassessment | | | prior to induction Rapid Sequence Induction: no Mask ventilation: | | | easy Successful technique: videoscope Laryngoscope blade size: | | | 3 Airway grade: 1 (Full view of glottis) Other equipment: | | | stylette Attempts: 1 Airway type: endotracheal Size: 7 Cuffed: | | | cuffed Route, reference point: right side of mouth Tube depth: 21 cm | | | Tube secured with: adhesive tape Trauma: none Tube placement | | | verification: bilateral chest rise, equal bilateral breath sounds | | | and carbon dioxide detection Performing provider: MARCELLUS HOFF | | | SONY Assisted by: PAIGE BARCLAY Comments: EZ BMV, | | | Grade I with Schmitz. Soft bite block placed after examining airway | | | for signs of trauma. Atraumatic airway manipulation. | | | Electronically Signed by: Marcellus Hoff MD | | | ESig date/time: 12/01/2015 8:24 | | | | | + + + documented in this encounter Visit Diagnoses Not on filedocumented in this encounter Administered Medications + +--------+ +---------+------+------+ | Medication Order | MAR | Action | Dose | Rate | Site | | | Action | Date | | | | + +--------+ +---------+------+------+ | albuterol 90 mcg/puff inhaler | Given | 12/01/19 | 8 puffs | | | | Inhalation, PRN, Shortness of | | 16 7:57 | | | | | Breath, Starting 12/01/15 at | | AM PDT | | | | | 0757, Anesthesia Intra-op | | | | | | + +--------+ +---------+------+------+ +---+---+ | | | +---+---+ + +---------+ +-----+---+---+ | ceFAZolin (ANCEF, KEFZOL) 2 g | New Bag | 12/01/19 | 2 g | | | | in sodium chloride 0.9% 50 mL | | 16 7:44 | | | | | IVPB 2 g, Intravenous, | | AM PDT | | | | | Administer over 30 Minutes, Prior | | | | | | | to Incision, Starting Mon | | | | | | | 12/01/15 at 0616, For 1 dose, | | | | | | | Administer within 1 hour of | | | | | | | surgical incision., Pre-op, | | | | | | | Indications: Surgical Prophylaxis | | | | | | + +---------+ +-----+---+---+ +---+---+ | | | +---+---+ + +-------+ +-------+---+---+ | dexamethasone (DECADRON) 10 | Given | 12/01/19 | 10 mg | | | | mg/mL injection Intravenous, | | 16 7:55 | | | | | PRN, Starting 12/01/15 at | | AM PDT | | | | | 0755, Anesthesia Intra-op | | | | | | + +-------+ +-------+---+---+ +---+---+ | | | +---+---+ + +-------+ +-------+---+---+ | dexmedetomidine (PRECEDEX) in | Given | 12/01/19 | 5 mcg | | | | sodium chloride bolus infusion | | 16 11:35 | | | | | Intravenous, PRN, Starting Mon | | AM PDT | | | | | 12/01/15 at 1102, Anesthesia | | | | | | | Intra-op | | | | | | + +-------+ +-------+---+---+ +-------+ +-------+---+---+ | Given | 12/01/19 | 5 mcg | | | | | 16 11:25 | | | | | | AM PDT | | | | +-------+ +-------+---+---+ | Given | 12/01/19 | 5 mcg | | | | | 16 11:06 | | | | | | AM PDT | | | | +-------+ +-------+---+---+ +---+---+ | | | +---+---+ + +-------+ +------+---+---+ | ePHEDrine 50 mg/mL injection | Given | 12/01/19 | 5 mg | | | | PRN, Starting Tue12/01/15 at | | 16 8:37 | | | | | 0808, Anesthesia Intra-op | | AM PDT | | | | + +-------+ +------+---+---+ +-------+ +-------+---+---+ | Given | 12/01/19 | 5 mg | | | | | 16 8:11 | | | | | | AM PDT | | | | +-------+ +-------+---+---+ | Given | 12/01/19 | 10 mg | | | | | 16 8:08 | | | | | | AM PDT | | | | +-------+ +-------+---+---+ +---+---+ | | | +---+---+ + +-------+ +---------+---+---+ | fentaNYL (PF) injection | Given | 12/01/19 | 100 mcg | | | | Intravenous, PRN, Pain, Starting | | 16 7:44 | | | | | 12/01/15 at 0744, Anesthesia | | AM PDT | | | | | Intra-op | | | | | | + +-------+ +---------+---+---+ +---+---+ | | | +---+---+ + +-------+ +--------+---+---+ | HYDROmorphone (DILAUDID) 2 | Given | 12/01/19 | 0.5 mg | | | | mg/mL injection Intravenous, | | 16 12:18 | | | | | PRN, Pain, Starting 12/01/15 | | PM PDT | | | | | at 0847, Anesthesia Intra-op | | | | | | + +-------+ +--------+---+---+ +-------+ +--------+---+---+ | Given | 12/01/19 | 0.5 mg | | | | | 16 10:31 | | | | | | AM PDT | | | | +-------+ +--------+---+---+ | Given | 12/01/19 | 0.5 mg | | | | | 16 9:19 | | | | | | AM PDT | | | | +-------+ +--------+---+---+ +---+---+ | | | +---+---+ + +-------+ +-------+---+---+ | ketamine 50 mg/mL injection | Given | 12/01/19 | 25 mg | | | | PRN, Starting Tue12/01/15 at | | 16 9:49 | | | | | 0747, Anesthesia Intra-op | | AM PDT | | | | + +-------+ +-------+---+---+ +-------+ +-------+---+---+ | Given | 12/01/19 | 50 mg | | | | | 16 7:47 | | | | | | AM PDT | | | | +-------+ +-------+---+---+ +---+---+ | | | +---+---+ + +---------+ +--------+-------+---+ | lactated ringers (LR) infusion | New Bag | 12/01/19 | 1,000 | 100 | | | at 10-100 mL/hr, Intravenous, | | 16 12:53 | mLs | mL/hr | | | CONTINUOUS, Starting Tue12/01/15 | | PM PDT | | | [...] | | +---+---+ + +-------+ +--------+---+---+ | lidocaine (PF) 1% injection | Given | 12/01/19 | 100 mg | | | | Intravenous, PRN, Starting Mon | | 16 7:47 | | | | | 12/01/15 at 0747, Anesthesia | | AM PDT | | | | | Intra-op | | | | | | + +-------+ +--------+---+---+ +---+---+ | | | +---+---+ + +-------+ +-----+---+---+ | magnesium sulfate 500 mg/mL | Given | 12/01/19 | 1 g | | | | injection Intravenous, PRN, | | 16 9:44 | | | | | Starting Tue12/01/15 at 0806, | | AM PDT | | | | | Anesthesia Intra-op | | | | | | + +-------+ +-----+---+---+ +-------+ +-----+---+---+ | Given | 12/01/19 | 1 g | | | | | 16 8:06 | | | | | | AM PDT | | | | +-------+ +-----+---+---+ +---+---+ | | | +---+---+ + +-------+ +------+---+---+ | ondansetron (ZOFRAN) injection | Given | 12/01/19 | 4 mg | | | | Intravenous, PRN, Nausea, | | 16 11:53 | | | | | Vomiting, Starting Tue12/01/15 at | | AM PDT | | | | | 1153, Anesthesia Intra-op | | | | | | + +-------+ +------+---+---+ +---+---+ | | | +---+---+ + +-------+ +---------+---+---+ | phenylephrine (RASHID-SYNEPHRINE) | Given | 12/01/19 | 100 mcg | | | | 100 mcg/mL injection | | 16 9:53 | | | | | Intravenous, PRN, Starting Mon | | AM PDT | | | | | 12/01/15 at 0754, Anesthesia | | | | | | | Intra-op | | | | | | + +-------+ +---------+---+---+ +-------+ +---------+---+---+ | Given | 12/01/19 | 100 mcg | | | | | 16 8:37 | | | | | | AM PDT | | | | +-------+ +---------+---+---+ | Given | 12/01/19 | 100 mcg | | | | | 16 8:11 | | | | | | AM PDT | | | | +-------+ +---------+---+---+ +---+---+ | | | +---+---+ + + + + +-------+---+ | propofol (DIPRIVAN) injection | Rate/Dos | 12/01/19 | 25 | 13.5 | | | Intravenous, CONTINUOUS PRN, | e Change | 16 11:27 | mcg/kg/m | mL/hr | | | Starting 12/01/15 at 0806, | | AM PDT | in | | | | Anesthesia Intra-op | | | | | | + + + + +-------+---+ +---------+ + +-------+---+ | New Bag | 12/01/19 | 50 | 26.9 | | | | 16 8:06 | mcg/kg/m | mL/hr | | | | AM PDT | in | | | +---------+ + +-------+---+ +---+---+ | | | +---+---+ + +-------+ +-------+---+---+ | propofol (DIPRIVAN) injection | Given | 12/01/19 | 10 mg | | | | Intravenous, PRN, Starting Mon | | 16 12:00 | | | | | 12/01/15 at 0747, Anesthesia | | PM PDT | | | | | Intra-op | | | | | | + +-------+ +-------+---+---+ +-------+ +-------+---+---+ | Given | 12/01/19 | 20 mg | | | | | 16 11:58 | | | | | | AM PDT | | | | +-------+ +-------+---+---+ | Given | 12/01/19 | 10 mg | | | | | 16 11:37 | | | | | | AM PDT | | | | +-------+ +-------+---+---+ +---+---+ | | | +---+---+ + +-------+ +-------+---+---+ | rocuronium (ZEMURON) injection | Given | 12/01/19 | 20 mg | | | | Intravenous, PRN, Starting Mon | | 16 9:41 | | | | | 12/01/15 at 0941, Anesthesia | | AM PDT | | | | | Intra-op | | | | | | + +-------+ +-------+---+---+ +---+---+ | | | +---+---+ + +-------+ +--------+---+---+ | succinylcholine (ANECTINE) | Given | 12/01/19 | 100 mg | | | | injection Intravenous, VICN, | | 16 7:47 | | | | | Starting 12/01/15 at 0747, | | AM PDT | | | | | Anesthesia Intra-op | | | | | | + +-------+ +--------+---+---+ +---+---+ | | | +---+---+ documented in this encounter
--- OUTSIDE RECORDS SUMMARY | ~2019-09-14 | XMS | Encounter Summary ---
Demographics + + + | Address | [address] | | | [place] [address] | + + + | Home Phone | | + + + | Preferred Language | Unknown | + + + | Marital Status | | + + + | Latter-Day Affiliation | 1041 | + + + | Race | Unknown | + + + | Ethnic Group | Unknown | + + + Author + + + | Author | [facility] | | | and [place] | + + + | Organization | [facility] | | | and [place] [...] Team Providers + +------+ + | Care Economics Professor Name | Role | Phone | + +------+ + | Isidra Renteria PA-C | PCP | | + +------+ + Reason for Visit +--------+--------+ + | Reason | Onset | Comments | | | Date | | +--------+--------+ + | Other | 11/13/ | Pre op meds to stop | | | 2015 | | +--------+--------+ + Encounter Details +--------+ + + + + | Date | Type | Department | Care Team | Description | +--------+ + + + + | 11/13/ | Telephone | [facility] | Riccardo Lechuga, | Other (Pre op meds | | 2016 | | NEUROSURGERY [address] | DO [address] | to stop) | | | | [address] | [address] [place], [place] | | | | | [place], [place] | [phone] | | | | | [address] | | | | | | [phone] | | | +--------+ + + + [...] this encounter Miscellaneous Notes Telephone Encounter - Hannah Hall RN - 11/14/2015 12:40 PM PDTPatient states that she has switched from metformin to "another diabetic medication." Advised patient to contact off ice with medication name and to hold this medication the morning of surgery. Patient verbali zed understanding. ele phone Encounter - Hannah Hall RN - 11/14/2015 10:31 AM PDTPatient in office for pre op appointment. Patient advised at this time to stop: Ibuprofen (7days prior and 90 days after) ; Lisinopril-HCTZ (Hold morning of surgery); Metformin (Hold 3 days prior)Electronically sig saeg by Hannah Hall RN at 11/14/2015 10:56 AM PDTdocumented in this encounter Plan of Treatment Not on filedocumented as of this encounter Visit Diagnoses Not on filedocumented in this encounter
--- OUTSIDE RECORDS SUMMARY | ~2019-09-14 | XMS | Encounter Summary ---
Demographics + + + | Address | [address] | | | [place] [address] | + + + | Home Phone | | + + + | Preferred Language | Unknown | + + + | Marital Status | | + + + | Caodaism Affiliation | 1041 | + + + | Race | Unknown | + + + | Ethnic Group | Unknown | + + + Author + + + | Author | [facility] | | | and [place] | + + + | Organization | [facility] | | | and [place] [...] Team Providers + +------+ + | Care Wool Handler Name | Role | Phone | + +------+ + | Isidra Renteria PA-C | PCP | | + +------+ + Reason for Visit +--------+--------+ + | Reason | Onset | Comments | | | Date | | +--------+--------+ + | Other | 12/14/ | | | | 2015 | | +--------+--------+ + Encounter Details +--------+ + + + + | Date | Type | Department | Care Team | Description | +--------+ + + + + | 12/14/ | Telephone | [facility] | Riccardo Lechuga, | Other | | 2015 | | NEUROSURGERY [address] | DO [address] | | | | | [address] | [address] [place], [place] | | | | | [place], [place] | [id number] | | | | | [address] | | | | | | [phone] | | | +--------+ + + + [...] Encounter - Rene Pillai Cert MA - 12/17/2015 10:38 AM PDTI attempted to reach patient again today, the phone is still not in service. RENE PILLAI elephone EncounRene Chiang Cert MA - 12/15/2015 12:10 PM PDTI attempted to reach patient back. I wa s told the number on file is no longer in service. Please, get a good number if the patient calls back and I am unavailable. RENE PILLAI elephone Alexandra Tee - 12/15/2015 11:27 AM PDTPatient called stated she has some personal i ssues she would like to discuss with Rene and would like a call back. documented in this encounter Plan of Treatment Not on filedocumented as of this encounter Visit Diagnoses Not on filedocumented in this encounter"
--- OUTSIDE RECORDS SUMMARY | ~2019-09-14 | XMS | Encounter Summary ---
Demographics + + + | Address | [address] | | | [place] [address] | + + + | Home Phone [...] + + | Author | [facility] | | | and [place] | + + + | Organization | [facility] | | | and [...] Team Providers + +------+ + | Care Letterpress Setter Name | Role | Phone | + +------+ + | Isidra Renteria PA-C | PCP | | + +------+ + Reason for Visit + +--------+ + | Reason | Onset | Comments | | | Date | | + +--------+ + | Medication Question | 04/19/ | | | | 2016 | | + +--------+ + Encounter Details +--------+ + + + + | Date | Type | Department | Care Team | Description | +--------+ + + + + | 04/19/ | Telephone | [facility] | Riccardo Lechuga, | Medication Question | | 2016 | | NEUROSURGERY [address] | DO [address] | | | | | [address] [facility] [address] | [address] [place], [place] | | | | | [place], [place] | [id number] | | | | | [address] | | | | | | [phone] | | | +--------+ + + + [...] Encounter - Rene Pillai Cert MA - 04/19/2016 4:11 PM PSTPatient was notified and advised per Dr. Lechuga. She understands and will call her PCP. RENE PILLAI elephone Riccardo Deshpande DO - 04/19/2016 1:53 PM PSTThis is too far out to fill pain medication s for her. At this point she needs to get pain medications from her PCP or the pain clinic r meera we sent. I am happy to see her any time regarding the ongoing pain. Thanks. elephone Erica Henriquez RN - 04/19/2016 12:29 PM PSTMedication Refill Request Procedure: L2-3, L3-4, L4-5 Lateral Anterior Interbody Fusion w/ L5-S1 Transforaminal Lumb ar Interbody Fusion Date of Surgery: 12/01/2015 Date of Next Office Visit: No appointment pending; patient requesting appointment in early July to discuss increased leg pain (see copied message below) Medication requested: Oxycodone-acetaminophen 10-325 mg Do you have a pain contract with any providers: No. Referral sent 03/18/16 authorized. Macario zuleta has not yet scheduled appointment to establish with pain clinic (see note below) Are you receiving pain medication prescriptions from any other providers: No Current intake: "taking two tablets twice a day" Date of last refill: 03/18/2016 # of tabs left/or when will patient run out of this medication: Information requested, but not provided in reply Where is pain located? Type of pain (constant, intermittent, sharp, dull)? : See note ace w Send in the mail or call in to preferred pharmacy? Requesting Rx sent to address listed maria isabel Nolasco Copied from message attached to Rx request: . I need an appmt. with Dr. SAN The first part of July if I can. The pain in my legs is ba d, especially in my left leg.would like to know what is going on there as its very painful. Am still in [place] and will be home the around the first part of June. No have not called the pain clinic yet. Please advise. Carlos mented in this encounter Plan of Treatment Not on filedocumented as of this encounter Visit Diagnoses Not on filedocumented in this encounter
--- OUTSIDE RECORDS SUMMARY | ~2019-09-14 | XMS | Encounter Summary ---
Demographics + + + | Address | [address] | | | [place] [address] | + + + | Home Phone | | + + + | Preferred Language | Unknown | + + + | Marital Status | | + + + | Gnosticism Affiliation | 1041 | + + + | Race | Unknown | + + + | Ethnic Group | Unknown | + + + Author + + + | Author | [facility] | | | and [place] | + + + | Organization | [facility] | | | and [place] | [...] Team Providers + +------+ + | Care Non Destructive Testing Technician Name | Role | Phone | + +------+ + | Isidra Renteria PA-C | PCP | | + +------+ + Encounter Details +--------+ + + + + | Date | Type | Department | Care Team | Description | +--------+ + + + + | 07/24/ | Abstract | [facility] [place] | Lionel Michelle, | | | 2015 | | NEUROSURGERY [address] | PA-C [address] | | | | | [address] | [address] [place] | | | | | [place], [place] | [place] [address] | | | | | [address] | [phone] | | | | | [phone] | | | +--------+ + + + [...]
--- OUTSIDE RECORDS SUMMARY | ~2019-09-14 | XMS | Encounter Summary ---
Demographics + + + | Address | [address] | | | [place] [address] | + + + | Home Phone | | + + + | Preferred Language | Unknown | + + + | Marital Status | | + + + | Confucianism Affiliation | 1041 | + + + | Race | Unknown | + + + | Ethnic Group | Unknown | + + + Author + + + | Author | [facility] | | | and [place] | + + + | Organization | [facility] | | | and [place] | + + + | Address | Unknown | + + + | Phone | Unavailable | + + + Support + + +---------+ + | Name | Relationship | Address | Phone | + + +---------+ + | aKmille Doshi | ECON | Unknown | | + + +---------+ + | Jordi Hogue | ECON | Unknown | | + + +---------+ + Care Team Providers + +------+ + | Care Event Operations Manager Name | Role | Phone | + +------+ + | Isidra Renteria PA-C | PCP | | + +------+ + Reason for Visit +--------+--------+ + | Reason | Onset | Comments | | | Date | | +--------+--------+ + | Other | 11/13/ | | | | 2015 | | +--------+--------+ + Encounter Details +--------+ + + + + | Date | Type | Department | Care Team | Description | +--------+ + + + + | 11/13/ | Telephone | [facility] | Riccardo Lechuga, | Other | | 2015 | | NEUROSURGERY [address] | DO [address] | | | | | [address] | [address] [place], [place] | | | | | [place], [place] | [id number] | | | | | [address] | | | | | | [phone] | | | +--------+ + + + [...] Encounter - Rene Pillai Cert MA - 11/18/2015 1:00 PM PDTVm left for patient. Letter generated and placed at promotions executive producer for hop picker when she comes in for surgery RENE PILLAI elephone Riccardo Deshpande DO - 11/17/2015 6:11 PM PDTThat sounds like an excellent plan. Please make it so. Thanks. elephone Shirao unter - Rene Pillai Cert MA - 11/17/2015 1:28 PM PDTI called and spoke with Rashad. She says that she will be able to come back in for a 4w PO visit/XR and says that if this infor ethan is in a letter along with a statement that she needs to go back to [place] for her hus band to care for her, then she should be able to come back with no issues. She wonders if s he could get a 30 day supply of pain medication after surgery and then get a refill when she is back for her 1 month PO visit? She would like the letter ready for her to hop picker the day she comes in for surgery. Please advise. RENE PILLAI elephone Alicia Cunningham - 11/17/2015 1:19 PM PDTPatient returned Rene's call. Electronically si gned by Alicia Weems at 11/17/2015 1:20 PM PDTTelephone Encounter - Rene Pillai Cert M A - 11/17/2015 11:11 AM PDTVm left for patient requesting a call back eleRiccardo Oro DO - 11/17/2015 8:59 AM PDTThat letter will be fine. Please have her a sk her PCP if, given the situation, they would fill pain medications after her initial presc ription runs out. Thanks. elephone Shirao jean paul - Rene Pillai Cert MA - 11/17/2015 8:21 AM PDTNarkulwant is scheduled to have an L2-5 XLIF with L5-S1 TLIF on 12/01/15. Please see message below and advise. RENE PILLAI elephone Encounte r - Hannah Hall RN - 11/14/2015 1:03 PM PDTPatient states that she is going to travel to [place] after surgery. Due to patient not being a citizen of [place] she [place] or [place] in [place]. Patient states that she will be traveling on a 6 month visa after surgery, if she travels to the [place], she will lose her visa to get back to [place]. Patient is wanting to know if we could provide a letter, if needed, stating that sh e needs to be able to get xrays for surgical follow up. She is also needing a larger supply of post op medications due to not being able to fill [place]. Please advise. Bharathi ball signed by Hannah Hall RN at 11/14/2015 1:07 PM PDTdocumented in this encounte r Plan of Treatment Not on filedocumented as of this encounter Visit Diagnoses Not on filedocumented in this encounter"
--- OUTSIDE RECORDS SUMMARY | ~2019-09-14 | XMS | Encounter Summary ---
Demographics + + + | Address | [address] | | | [place] [address] | + + + | Home Phone | | + + + | Preferred Language | Unknown | + + + | Marital Status | | + + + | Sikhism Affiliation | 1041 | + + + | Race | Unknown | + + + | Ethnic Group | Unknown | + + + Author + + + | Author | [facility] | | | and [place] | + + + | Organization | [facility] | | | and [...] Team Providers + +------+ + | Care Cow Buyer Name | Role | Phone | + +------+ + | Isidra Renteria PA-C | PCP | | + +------+ + Reason for Visit +--------+--------+ + | Reason | Onset | Comments | | | Date | | +--------+--------+ + | Other | 12/28/ | | | | 2015 | | +--------+--------+ + Encounter Details +--------+ + + + + | Date | Type | Department | Care Team | Description | +--------+ + + + + | 12/28/ | Telephone | [facility] | Riccardo Lechuga, | Other | | 2015 | | NEUROSUR[address]ERY [address] | DO [address] | | | | | [address] | [address] [place], [place] | | | | | [place], [place] | [id number] | | | | | [address] | | | | | | [phone] | | | +--------+ + + + [...] Encounter - Rene Pillai Cert MA - 12/29/2015 1:21 PM PDTMessage and recommend ations relayed to patient. RENE PILLAI elephone Petra diaz - Riccardo Lechuga DO - 12/29/2015 11:22 AM PDTAll we can do is advise her to rest. If thi ngs improve, great. If not, we could try to work out a way to get x-rays sooner. I think she 'll feel better with rest though. Thanks. elephone Enco unter - Rene Pillai Cert MA - 12/29/2015 10:53 AM PDTNartez called today wanting to let o ur office know that she fell down yesterday and hit her face on the floor. When she woke up this morning, she notices some increased soreness across the low back but she has been sore in this area since surgery. She does not have any other symptoms. She is not able to have any imaging or treatment done in [place]. She is S/P L2-S1 Fusion on 12/01/15. Next visit is on 03/19/16. Please advise. RENE PILLAI documented in this encounter Plan of Treatment Not on filedocumented as of this encounter Visit Diagnoses Not on filedocumented in this encounter"
--- OUTSIDE RECORDS SUMMARY | ~2019-09-14 | XMS | Encounter Summary ---
Demographics + + + | Address | [address] | | | [place] [address] | + + + | Home Phone | | + + + | Preferred Language | Unknown | + + + | Marital Status | | + + + | Holiness Affiliation | 1041 | + + + | Race | Unknown | + + + | Ethnic Group | Unknown | + + + Author + + + | Author | [facility] | | | and [place] | + + + | Organization | [facility] | | | and [...] Team Providers + +------+ + | Care Truck Switcher Name | Role | Phone | + +------+ + | Isidra Renteria PA-C | PCP | | + +------+ + Reason for Visit +--------+--------+ + | Reason | Onset | Comments | | | Date | | +--------+--------+ + | Other | 11/26/ | Surgery Reminder | | | 2015 | | +--------+--------+ + Encounter Details +--------+ + + + + | Date | Type | Department | Care Team | Description | +--------+ + + + + | 11/26/ | Telephone | [facility] | Riccardo Lechuga, | Other (Surgery | | 2016 | | NEUR[address]UR[address]ERY [address] | DO [address] | Reminder ) | | | | [address] | [address] [place], [place] | | | | | [place], [place] | [phone] | | | | | [address] | | | | | | [phone] | | | +--------+ + + + [...] this encounter Miscellaneous Notes Telephone Encounter - Fide Jiang Cert MA - 11/27/2015 1:58 PM PDTAll presurgical check -in instructions given Surgery date: 12/01/2015 Check-in Time: 06:00am No solids or liquids after midnight the night before surgery. Follow the cleansing instructions provided beginning the night before surgery after you lulú wer or bathe. No showering the morning of surgery. Please do not wear jewelry, contact lenses, nail portuguese (on fingers or toes), or make-up to surgery check-in. If you have dentures, hearing aids, or glasses please bring the cases with you to check-in. Medications instructions: Ibuprofen, Lisinopril (hold the morning of surgery) Surgical Admit Anticipated Disposition reviewed and correct: "Yes documented in this encounter Plan of Treatment Not on filedocumented as of this encounter Visit Diagnoses Not on filedocumented in this encounter
--- OUTSIDE RECORDS SUMMARY | ~2019-09-14 | XMS | Encounter Summary ---
Demographics + + + | Address | [address] | | | [place] [address] | + + + | Home Phone | | + + + | Preferred Language | Unknown | + + + | Marital Status | | + + + | Amish Affiliation | 1041 | + + + | Race | Unknown | + + + | Ethnic Group | Unknown | + + + Author + + + | Author | [facility] | | | and [place] | + + + | Organization | [facility] | | | and [place] [...] Team Providers + +------+ + | Care Microsoft Office Instructor Name | Role | Phone | + +------+ + | Isidra Renteria PA-C | PCP | | + +------+ + Reason for Visit + + + | Reason | Comments | + + + | Follow-up | 4 week PO | + + + Encounter Details +--------+---------+ + + + | Date | Type | Department | Care Team | Description | +--------+---------+ + + + | 12/25/ | Office | [facility] | Lionel Michelle, | S/P lumbar fusion | | 2016 | Visit | NEUR[address]UR[address] | PA-C [address] | (Primary Dx) | | | | [address] | [address] [place] | | | | | [place], [place] | [place] [address] | | | | | [address] | [phone] | | | | | [phone] | | | +--------+---------+ + + + [...] + + + | Blood Pressure | 115/55 | 12/26/2015 8:16 AM | | | | | PDT | | + + + + + | Pulse | 79 | 12/26/2015 8:16 AM | | | | | PDT | | + + + + + | Temperature | - | - | | + + + + + | Respiratory Rate | 16 | 12/26/2015 8:16 AM | | | | | PDT | | + + + + + | Oxygen Saturation | - | - | | + + + + + | Inhaled Oxygen | - | - | | | Concentration | | | | + + + + + | Weight | 94.7 kg (208 lb 12.8 | 12/26/2015 8:16 AM | | | | oz) | PDT | | + + + + + | Height | 162.6 cm (5' 4") | 12/26/2015 8:16 AM | | | | | PDT | | + + + + + | Body Mass Index | 35.84 | 12/26/2015 8:16 AM | | | | | PDT | | + + + + + documented in this encounter Patient Instructions Patient Instructions Yolanda Tellez [employer] - 12/26/2015 8:46 AM PDTYou may now slowly increase your lifting up to 15 pounds as tolerated. You may now reach overhead but it should only be 1-2 pounds. Please refrain from twisting for the next 8 weeks. Lastly, you w ill see Dr. Lechuga in approximately 2 months where a new x-ray will be taken at that time. I n the meantime, you can also begin to wean out of your brace as instructed below. SPINE BRACE WEANING PROTOCOL (5 WEEKS) Below are instructions for weaning your brace. You can move through the weeks slower if yo u feel the need to do so, but the overall goal is to get you out of the brace slowly over th e next several weeks. WEEK 1 If you have been using your brace for activities like sleeping, showering, do not use the b race for these activities any longer but continue using it for everything else. WEEK 2 Stop wearing your brace for sitting and short distance walking. You should use the brace f or anything more involved. WEEK 3 Stop using the brace for medium distance walking. You can bend and twist your back but sti ll proceed slowly with these activities. WEEK 4 Stop using the brace for everything but the most difficult tasks. You should now be able to go on long walks and lift more weight as directed. Add more bending and twisting as tolera micah. WEEK 5 Stop using the brace for daily use. I would encourage you to use the brace in the future f or activities that you know might aggravate your back or cause pain. You should still work to strengthen your back and use good technique when corn picker things and bending. documented in this encounter Progress Notes Lionel Michelle PA - 12/26/2015 8:43 AM PDTFormatting of this note might be different f rom the original. SIA [address] [place] [address] FAX: NEUROSURGERY FOLLOW-UP CHIEF COMPLAINT: Chief Complaint Patient presents with Follow-up 4 week PO HISTORY OF PRESENT ILLNESS: The patient is a 70 y.o. female that had a lumbar fusion aroun d 4 weeks ago. She returns and overall is doing good. The patient complains of right leg p ain. The patient has been walking as much as directed. She is still taking pain medication s at this point. The patient has had no issues with her surgical site. She states her pain has been improving the last month. She has swelling on both feet, she complains the swelling is getting worse. Patient does complain of bilateral lower extremity swelling. CURRENT MEDICATIONS: Current Outpatient Prescriptions Medication Sig [...] patch onto the skin every 72 hours. 20 patch 0 gabapentin (NEURONTIN) 300 mg capsule Take 600 [...] every 4 hours as needed for Pain. 150 tablet 0 pramipexole (MIRAPEX) 0.5 MG tablet Take 0.5 mg by mouth. 3 tablets at night ranitidine (ZANTAC) 300 MG tablet Take 300 mg by mouth Daily. No current facility-administered medications for this visit. ALLERGIES: Allergies Allergen Reactions Metformin Swelling Difficulty swallowing. "Whole body swelled" SOCIAL HISTORY: The patient reports that she quit smoking about 11 months ago. Her smoking use included Ci garettes. She started smoking about 6 years ago. She has a 3 pack-year smoking history. She has never used smokeless tobacco. She reports that she drinks alcohol. She reports that she does not use illicit drugs. INTERIM PHYSICAL EXAMINATION: Blood pressure 115/55, pulse 79, resp. rate 16, height 1.626 m (5' 4"), weight 94.711 kg (2 08 lb 12.8 oz), not currently . Body mass index is 35.82 kg/(m^2). GENERAL: Rashad Crane is in no acute distress with unlabored respirations. SPINE: The patient s incisions are healing well without drainage, significant erythema, o r discharge. EXTREMITIES: No lower extremity edema. NEUROLOGICAL EXAMINATION: MENTAL STATUS: The patient is awake, alert, and oriented. She follows simple and complex commands MOTOR EXAM: Motor strength is 5/5. This is improved when compared to the preoperative exam . SENSORY EXAM: The sensory examination is improved when compared to the preoperative exam. RADIOGRAPHIC REVIEW: The patient s x-rays show stable instrumentation and alignment and were reviewed with the patient today. There have been no interval changes since the immediate postoperative films . Complete fusion has not yet occurred, but this is normal and would not be expected at thi s time. ASSESSMENT: Encounter Diagnosis Name Primary? S/P lumbar fusion Yes Past Medical History Diagnosis Date Disc degeneration, lumbar Depression Lumbago Arthritis Urge incontinence Bone spur Right shoulder Impingement syndrome of right shoulder Chronic back pain Hypertension Hyperlipidemia Borderline diabetes PLAN: Overall, the patient is doing fairly well. The patient can see some improvements but vanita nues to recover from recent surgery. I increased the patient s activities now allowing 15 pound lifting. The patient should i ncrease range of motion activities as tolerated. I would like the patient to advance slowly with this process and discussed this at length during today's visit. I would also like the patient to continue with postoperative rehabilitation and to advance with therapy as earla micah. We discussed that we can provide pain medications for up to 90 days after their surgical da te. We discussed the need to continue tapering pain medication. If they need longer term p ain medication, they should begin working on either pain management or with the primary care provider. I am hoping to see improvement over the coming weeks to months and plan to continue to foll ow this patient. The patient will follow-up in clinic in around 8 weeks for re-evaluation. ELECTRONICALLY SIGNED BY: SIA [place], 12/26/2015 9:04 documented in this encounter Plan of Treatment [...] is stable hardware for posterior fusion | [facility] | | from L2 through S1 with [...] ST. | [address] | [place] | [phone] | | [facility] | | [phone] | | | - IMAGING | | | | + + + + + documented in this encounter Visit Diagnoses + + | Diagnosis | + + | S/P lumbar fusion - Primary Arthrodesis status | + + documented in this encounter
--- OUTSIDE RECORDS SUMMARY | ~2019-09-14 | XMS | Encounter Summary ---
Demographics + + + | Address | [address] | | | [place] [address] | + + + | Home Phone | | + + + | Preferred Language | Unknown | + + + | Marital Status | | + + + | Hindu Affiliation | 1041 | + + + | Race | Unknown | + + + | Ethnic Group | Unknown | + + + Author + + + | Author | [facility] | | | and [place] | + + + | Organization | [facility] | | | and [place] [...] Team Providers + +------+ + | Care Pre Certification Specialist Name | Role | Phone | + +------+ + | Isidra Renteria PA-C | PCP | | + +------+ + Reason for Visit + +--------+ + | Reason | Onset | Comments | | | Date | | + +--------+ + | Appointment | 08/04/ | AUGUST RECALL | | | 2016 | | + +--------+ + Encounter Details +--------+ + + + + | Date | Type | Department | Care Team | Description | +--------+ + + + + | 08/04/ | Telephone | [facility] | Alice Gilman, | Appointment (AUGUST | | 2016 | | CARDIOLOGY [address] | RECALL) | | | | [place], | [place], | | | | | [place] [address] | [place] [address] | | | | | [phone] | [phone] | | | | | | | [...] this encounter Miscellaneous Notes Telephone Encounter - Keely Rubin - 08/13/2016 11:28 AM PDTPatient was advised to follow up as needed. She will call our office when she is ready to schedule. elephone Encounter - Keely Rubin - 4:21 PM PDTCalled patient to schedule. She stated that she does not have her calendar wit h her and would return our call tomorrow to schedule. elephone Encounter - Keely Rubin - 08/04/2016 9:30 AM PDTLast office visit: 08/27/2015 Provider seen: Dr. Gilman due back: August Follow up type due: 1 year THR Needed: No Additional testing/labs due prior: No Outcome of call: Spoke to patient and she requested a call back on 08-09-16, to french linda. documented in this encount er Plan of Treatment Not on filedocumented as of this encounter Visit Diagnoses Not on filedocumented in this encounter"
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
--- OUTSIDE RECORDS SUMMARY | ~2019-09-14 | XMS | Encounter Summary ---
Demographics + + + | Address | [address] | | | [place] [address] | + + + | Home Phone | | + + + | Preferred Language | Unknown | + + + | Marital Status | | + + + | Sikh Affiliation | 1041 | + + + | Race | Unknown | + + + | Ethnic Group | Unknown | + + + Author + + + | Author | [facility] | | | and [place] | + + + | Organization | [facility] | | | and [place] | + + + | Address | Unknown | + + + | Phone | Unavailable | + + + Support + + +---------+ + | Name | Relationship | Address | Phone | + + +---------+ + | Kamille Doshi | ECON | Unknown | | + + +---------+ + | Jordi oHgue | ECON | Unknown | | + + +---------+ + Care Team Providers + +------+ + | Care Lead Java Software Engineer Name | Role | Phone | + +------+ + | Isidra Renteria PA-C | PCP | | + +------+ + Encounter Details +--------+ + + + + | Date | Type | Department | Care Team | Description | +--------+ + + + + | 05/22/ | Orders Only | [facility] | Riccardo Lechuga, | Back pain, | | 2016 | | NEUROSURGERY [address] | DO [address] | unspecified back | | | | [address] | [address] [place], [place] | pain laterality, | | | | [place], [place] | [address] | unspecified location | | | | [address] | | (Primary Dx) | | | | [phone] | | | +--------+ + + + + Social History + +-------+ +--------+------+ | Tobacco Use | Types | Packs/Day | Years | Date | | | | | Used | | + +-------+ +--------+------+ | Never Assessed | | | | | + +-------+ +--------+------+ + + + | Sex Assigned at | Date Recorded | | | | + + + | Not on file | | + + + documented as of this encounter Plan of Treatment Not on filedocumented as of this encounter Results XR Lumbar Spine 4 + Vw (08/01/2015 7:55 AM PDT) + + | Specimen | + + | | + + + + + | Narrative | Performed At | + + + | XR LUMBAR SPINE 4 + VW 08/01/2015 7:53 AM HISTORY: Back pain. | [facility] | | COMPARISON: None. FINDINGS: Mild to moderate levoscoliosis of | [facility] | | the lumbar spine is present. [...] [address] | [place] | [phone] | | [facility] | | [address] | | | - IMAGING | | | | + + + + + documented in this encounter Visit Diagnoses + + | Diagnosis | + + | Back pain, unspecified back pain laterality, unspecified location - Primary | + + documented in this encounter"
--- OUTSIDE RECORDS SUMMARY | ~2019-09-14 | XMS | Encounter Summary ---
Demographics + + + | Address | [address] | | | [place] [address] | + + + | Home Phone | | + + + | Preferred Language | Unknown | + + + | Marital Status | | + + + | Zoroastrian Affiliation | 1041 | + + + | Race | Unknown | + + + | Ethnic Group | Unknown | + + + Author + + + | Author | [facility] | | | and [place] | + + + | Organization | [facility] | | | and [...] Team Providers + +------+ + | Care Pumpman Name | Role | Phone | + +------+ + | Isidra Renteria PA-C | PCP | | + +------+ + Encounter Details +--------+ + + + + | Date | Type | Department | Care Team | Description | +--------+ + + + + | 12/25/ | Hospital | [facility] | Riccardo Lechuga, | Status post lumbar | | 2016 | Encounter | MED CTR XRAY [address] | DO [address] | spinal fusion; | | | | [place] | [address] [place], [place] | Kyphoscoliosis | | | | [place] [address] | [address] | | | | | [phone] | | | +--------+ + + + [...] mg by mouth | | 0 | 06/15/20 | | | hydrochlorothiazide | Daily. | [...] mg by mouth | | 0 | 06/16/20 | | | (ZANTAC) 300 MG | Daily. | | | 16 | | | tablet | | | | | | + + + +---------+ + + | fentaNYL | Place 1 patch onto | 20 | 0 | 12/26/19 | | | (DURAGESIC) 50 | the skin every 72 | patch | | 16 | 7 | | mcg/hr | hours. | | [...] tablets by | 150 | 0 | 12/26/19 | | | oxyCODONE-acetaminop | mouth every 4 hours | tablet | | 16 | 7 | | hen (PERCOCET) | as needed [...] LUMBAR SPINE 2 OR | Routin | 12/26/2015 | Status post lumbar | Results for this | | 3 VW | e | 7:27 AM | spinal fusion | procedure are in the | | | | PDT | Kyphoscoliosis | results section. | + +--------+ + [...] COMPARISON: Multiple priors. FINDINGS: Mild left | [facility] | | curvature of the lumbar spine [...] + | Serge, Rad Results In - 12/26/2015 9:23 AM [...] | [address] | [address] | [place] | [phone] | | [facility] | | [address] | | | - IMAGING | | | | + + + + + documented in this encounter Visit Diagnoses + + | Diagnosis | + + | Status post lumbar spinal fusion Arthrodesis status | + + | Kyphoscoliosis Scoliosis (and kyphoscoliosis), idiopathic | + + documented in this encounter"
[~2019-09-14 18:09] MED LIST changes: +HYDROCHLOROTH12.5 M1 PO
--- OUTSIDE RECORDS SUMMARY | 2019-09-14 18:12 | XMS ---
PreManage Notification: ALFREDO CUELLAR Security Battery Container Inspector Events No recent Security Events currently on file CRITERIA MET - Group Notification - [facility] - Has Care Guidelines - PDMP CARE PROVIDERS JUDY EDWARDS Internal Medicine: Pulmonary Disease 09/05/2018-Current PHONE: Unknown Shawn has no Care Guidelines for this patient. Care History Medical/Surgical 04/09/2019 [facility] Patient still has not set follow up visit with PCP.\T\nbsp; Left voice mail for call back.\T\nbsp; Patient returned call.\T\nbsp; Follow up visit scheduled with Dr. Nielson on 04/19/2019 at 2:00pm 04/03/2019 [facility] Appropriate use of ED.\T\nbsp;\T\nbsp;Patient\T\nbsp;still needs to schedule follow\T\nbsp;up with PCP. \T\nbsp; 09/05/2018 [facility] - Patient is currently established with [facility]. If patient is seen in the ED during business hours. Please contact CHWs at [facility]. Care Recommendation: If this patient has had 5 or more Emergency Department visits in the last 12 months.\T\nbsp; Patient will require education on the scope and purpose of the ED as an acute care provider not a Primary Care Provider and should not be utilized for chronic conditions.\T\nbsp; These are guidelines and the provider should exercise clinical judgment when providing care. Antoine VISIT COUNT (12 MO.) 3 [facility] TOTAL 3 NOTE: Visits indicate total known visits. ED/UCC VISIT TRACKING (12 MO.) 09/14/2019 18:10 [facility] TYPE: Emergency COMPLAINT: - WRIST PAIN, INJ 04/07/2019 19:01 [facility] TYPE: Emergency COMPLAINT: - LEFT KNEE PAIN/INJURY DIAGNOSES: - Contusion of left knee, initial encounter - Hypothyroidism, unspecified - Other care home (current) drug therapy - Allergy status to other drugs, medicaments and biological sub - Fall on same level, unspecified, initial encounter - Nicotine dependence, unspecified, uncomplicated - Essential (primary) hypertension - Bee allergy status 04/03/2019 04:02 [facility] TYPE: Emergency COMPLAINT: - FALL DIAGNOSES: - Essential (primary) hypertension - Other long term care phlebotomist (current) drug therapy - Hypothyroidism, unspecified - Other and unspecified overexertion or strenuous movements or - Pain in left ankle and joints of left foot - Sprain of unspecified ligament of left ankle, initial encount - Unspecified asthma, uncomplicated - Allergy status to other drugs, medicaments and biological sub - Nicotine dependence, unspecified, uncomplicated - Bee allergy status INPATIENT VISIT TRACKING (12 MO.) No inpatient visits to display in this time frame [id number]
== END 2019-09-14 19:30 | disposition home or self-care (01) ==
LOC: ED 18:09
DX: S63.502A Unspecified sprain of left wrist, initial encounter (principal); I10 Essential (primary) hypertension; E03.9 Hypothyroidism, unspecified; F17.200 Nicotine dependence, unspecified, uncomplicated; Z91.030 Bee allergy status; Z88.8 Allergy status to other drugs, medicaments and biological substances; Z79.899 Other long term (current) drug therapy; X58.XXXA Exposure to other specified factors, initial encounter
CPT/HCPCS: 73110; 99283-25

== ENCOUNTER 2020-03-08 15:33 | Emergency (ER) | payer MEDICARE, OTHER ==
[~2020-03-08] VITALS: Ht 162.6 cm; Wt 86.6 kg
[~2020-03-08 15:33] MED LIST changes: +ASPIRIN EC325 MG PO; +SENNA LAX8.6 MG PO
--- OUTSIDE RECORDS SUMMARY | 2020-03-08 15:36 | XMS ---
PreManage Notification: ALFREDO CUELLAR Security Planning Lead Events No recent Security Events currently on file CRITERIA MET - Group Notification - [facility] - Has Care Guidelines - PDMP CARE PROVIDERS JUDY EDWARDS Internal Medicine: Pulmonary Disease 09/05/2018-Current PHONE: Unknown Shawn has no Care Guidelines for this patient. Care History Medical/Surgical 04/09/2019 [facility] Patient still has not set follow up visit with PCP.\T\nbsp; Left voice mail for call back.\T\nbsp; Patient returned call.\T\nbsp; Follow up visit scheduled with Dr. Nielson on 04/19/2019 at 2:00pm 04/03/2019 [facility] Appropriate use of ED.\T\nbsp;\T\nbsp;Patient\T\nbsp;still needs to schedule follow\T\nbsp;up with PCP. \T\nbsp; 09/05/2018 [facility] - Patient is currently established with [facility]. If patient is seen in the ED during business hours. Please contact CHWs at [facility]. Care Recommendation: If this patient has [...] providing care. Antoine VISIT COUNT (12 MO.) 4 [facility] TOTAL 4 NOTE: Visits indicate total known visits. ED/UCC VISIT TRACKING (12 MO.) 03/08/2020 15:34 [facility] [place] TYPE: Emergency COMPLAINT: - KNEE PAIN 09/14/2019 18:10 [facility] [place] TYPE: Emergency COMPLAINT: - WRIST PAIN, INJ DIAGNOSES: - Allergy status to other drugs, medicaments and biological substances - Nicotine dependence, unspecified, uncomplicated - Unspecified sprain of left wrist, initial encounter - Pain in left wrist - Exposure to other specified factors, initial encounter - Other extermination supervisor (current) drug therapy - Essential (primary) hypertension - Bee allergy status - Hypothyroidism, unspecified 04/07/2019 19:01 [facility] [place] TYPE: Emergency COMPLAINT: - LEFT KNEE PAIN/INJURY DIAGNOSES: - Contusion of left knee, initial encounter - Hypothyroidism, unspecified - Other snf (current) drug therapy - Allergy status to other drugs, medicaments and biological substances - Fall on same level, unspecified, initial encounter - Nicotine dependence, unspecified, uncomplicated - Essential (primary) hypertension - Bee allergy status 04/03/2019 04:02 [facility] [place] TYPE: Emergency COMPLAINT: - FALL DIAGNOSES: - Essential (primary) hypertension - Other snf (current) drug therapy - Hypothyroidism, unspecified - Other and unspecified overexertion or strenuous movements or postures, initial encounter - Pain in left ankle and joints of left foot - Sprain of unspecified ligament of left ankle, initial encounter - Unspecified asthma, uncomplicated - Allergy status to other drugs, medicaments and biological substances - Nicotine dependence, unspecified, uncomplicated - Bee allergy status INPATIENT VISIT TRACKING (12 MO.) No inpatient visits to display in this time frame [email or web address]
[2020-03-08] MEDS ORDERED: ULTRAM50 MG PO (16:57)
== END 2020-03-08 17:07 | disposition home or self-care (01) ==
LOC: ED 15:33
DX: M25.561 Pain in right knee (principal); I10 Essential (primary) hypertension; J45.909 Unspecified asthma, uncomplicated; E03.9 Hypothyroidism, unspecified; F17.200 Nicotine dependence, unspecified, uncomplicated; Z88.8 Allergy status to other drugs, medicaments and biological substances; Z91.030 Bee allergy status; Z79.899 Other long term (current) drug therapy
CPT/HCPCS: 73560; 99283-25

== ENCOUNTER 2020-07-02 08:29 | Emergency (ER) | payer MEDICARE, OTHER ==
[~2020-07-02] VITALS: Ht 162.6 cm; Wt 91.2 kg
[~2020-07-02 08:29] MED LIST changes: +DICLOFENAC SODI75 MG PO; +DOXYCYCLINE HY100 MG PO; +EPIN0.3P IM; +FLUCONAZOLE150 MG PO; +HYDROCODON-ACE1 EA10 PO; +HYDROMORPHONE HC2 MG PO; +LISINOPRIL-HCT1 EAC2 PO; +PREDNISONE10 MG PO; +SULFAMETHOXAZO1 EAC1 PO; +TRAZODONE HCL50 MG PO; +ULTRAM50 MG PO; +VENLAFAXINE HCL75 M1 PO; +VENTOLIN HFA18 GM INH
--- OUTSIDE RECORDS SUMMARY | 2020-07-02 08:36 | XMS ---
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 Care History Medical/Surgical 04/09/2019 [facility] Patient still has not set follow up visit with PCP.\T\nbsp; Left voice mail for call back.\T\nbsp; Patient returned call.\T\nbsp; Follow up visit scheduled with Dr. Nielson on 04/19/2019 at 2:00pm 04/03/2019 [facility] Appropriate use of ED.\T\nbsp;\T\nbsp;Patient\T\nbsp;still needs to schedule follow\T\nbsp;up with PCP. \T\nbsp; 09/05/2018 [facility] - Patient is currently established with [facility]. If patient is seen in the ED during business hours. Please contact CHWs at [facility]. Care Recommendation: If this patient has [...] providing care. Antoine VISIT COUNT (12 MO.) 5 [facility] TOTAL 5 NOTE: Visits indicate total known visits. ED/UCC VISIT TRACKING (12 MO.) 07/02/2020 08:30 [facility] [place] TYPE: Emergency COMPLAINT: - L ARM PAIN 07/01/2020 15:34 [facility] [place] [facility] [place] TYPE: Emergency COMPLAINT: - L ARM PAIN 06/23/2020 21:27 [facility] [facility] [place] TYPE: Emergency COMPLAINT: - L SHOULDER PAIN/ NO INJ 03/08/2020 15:[address] [facility] [address] [facility] [place] TYPE: Emergency COMPLAINT: - KNEE PAIN DIAGNOSES: - Other assistant terminal manager (current) drug therapy - Pain in right knee - Bee allergy status - Nicotine dependence, unspecified, uncomplicated - Hypothyroidism, unspecified - Allergy status to other drugs, medicaments and biological substances - Unspecified asthma, uncomplicated - Allergy status to other drugs, medicaments and biological substances - Essential (primary) hypertension 09/14/2019 18:[address] [facility] [address] [facility] [place] TYPE: Emergency COMPLAINT: - WRIST PAIN, INJ DIAGNOSES: - Allergy status to other drugs, medicaments and biological substances - Nicotine dependence, unspecified, uncomplicated - Unspecified sprain of left wrist, initial encounter - Pain in left wrist - Exposure to other specified factors, initial encounter - Other assistant terminal manager (current) drug therapy - Essential (primary) hypertension - Bee allergy status - Hypothyroidism, unspecified INPATIENT VISIT TRACKING (12 MO.) 06/23/2020 21:[address] [facility] [facility] [place] TYPE: Observation COMPLAINT: - L ARM PAIN/LEUKOCYTOSIS DIAGNOSES: - Fever, unspecified - Low back pain - Adverse effect of other viral vaccines, initial encounter - Bandemia - Localized swelling, mass and lump, left upper limb - Unspecified asthma, uncomplicated - Pain in left upper arm - Hypothyroidism, unspecified - Presence of artificial knee joint, bilateral - Presence of neurostimulator - Essential (primary) hypertension [email or web address]
[2020-07-02] MEDS ORDERED: HYDROCODON-ACE1 EA10 PO (08:55)
== END 2020-07-02 09:07 | disposition home or self-care (01) ==
LOC: ED 08:29
DX: M79.622 Pain in left upper arm (principal); I10 Essential (primary) hypertension; J45.909 Unspecified asthma, uncomplicated; E03.9 Hypothyroidism, unspecified; F17.200 Nicotine dependence, unspecified, uncomplicated; Z88.8 Allergy status to other drugs, medicaments and biological substances; Z91.030 Bee allergy status; Z79.899 Other long term (current) drug therapy
CPT/HCPCS: 99283

== ENCOUNTER 2020-08-01 15:11 | Emergency (ER) | payer MEDICARE, OTHER ==
[~2020-08-01] VITALS: Ht 162.6 cm; Wt 86.2 kg
--- OUTSIDE RECORDS SUMMARY | 2020-08-01 15:14 | XMS ---
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 CRITERIA MET - Group Notification - 6 ED Visits in 6 Months - [facility] - Has Care Guidelines - PDMP - [facility] - 2 Visits in 30 Days CARE PROVIDERS JUDY EDWARDS Internal Medicine: Pulmonary Disease 09/05/2018-Current PHONE: Unknown Shawn has no Care Guidelines for this patient. Care History Medical/Surgical 04/09/2019 [facility] Patient still has not set follow up visit with PCP.\T\nbsp; Left voice mail for call back.\T\nbsp; Patient returned call.\T\nbsp; Follow up visit scheduled with Dr. Nielson on 04/19/2019 at 2:00pm 04/03/2019 [facility] Appropriate use of ED.\T\nbsp;\T\nbsp;Patient\T\nbsp;still needs to schedule follow\T\nbsp;up with PCP. \T\nbsp; 09/05/2018 [facility] - Patient is currently established with [facility]. If patient is seen in the ED during business hours. Please contact CHWs at [facility]. Care Recommendation: If this patient has had [...] providing care. E.D. VISIT COUNT (12 MO.) [address] Karen Garcia 6 TERRA [place] TOTAL 7 NOTE: Visits indicate total known visits. ED/UCC VISIT TRACKING (12 MO.) 08/01/2020 15:12 [facility] [place] TYPE: Emergency COMPLAINT: - LT ARM PAIN/NO INJURY 07/20/2020 13:11 [facility] [place] TYPE: Emergency DIAGNOSES: - rash, cough, covid shot reaction - Arm Pain - Pain in left arm - Rash - Effusion, left shoulder 07/02/2020 08:30 [facility] [place] TYPE: Emergency COMPLAINT: - L ARM PAIN DIAGNOSES: - Pain in left upper arm - Essential (primary) hypertension - Hypothyroidism, unspecified - Nicotine dependence, unspecified, uncomplicated - Pain in left arm - Other buttermaker helper (current) drug therapy - Bee allergy status - Allergy status to other drugs, medicaments and biological substances - Unspecified asthma, uncomplicated 07/01/2020 15:34 [facility] [place] TYPE: Emergency COMPLAINT: - L ARM PAIN 06/23/2020 21:27 [facility] [place] [facility] [place] TYPE: Emergency COMPLAINT: - L SHOULDER PAIN/ NO INJ 03/08/2020 15:34 [facility] [place] [facility] [place] TYPE: Emergency COMPLAINT: - KNEE PAIN DIAGNOSES: - Other buttermaker helper (current) drug therapy - Pain in right knee - Bee allergy status - Nicotine dependence, unspecified, uncomplicated - Hypothyroidism, unspecified - Allergy status to other drugs, medicaments and biological substances - Unspecified asthma, uncomplicated - Allergy status to other drugs, medicaments and biological substances - Essential (primary) hypertension 09/14/2019 18:10 [facility] [place] [place] TYPE: Emergency COMPLAINT: - WRIST PAIN, INJ DIAGNOSES: - Allergy status to other drugs, medicaments and biological substances - Nicotine dependence, unspecified, uncomplicated - Unspecified sprain of left wrist, initial encounter - Pain in left wrist - Exposure to other specified factors, initial encounter - Other correction (current) drug therapy - Essential (primary) hypertension - Bee allergy status - Hypothyroidism, unspecified INPATIENT VISIT TRACKING (12 MO.) 06/23/2020 21:28 [facility] [place] TYPE: Observation COMPLAINT: - L ARM [...] Presence of neurostimulator - Essential (primary) hypertension [email or web address]
== END 2020-08-01 18:15 | disposition home or self-care (01) ==
LOC: ED 15:11
DX: S40.022A Contusion of left upper arm, initial encounter (principal); S50.12XA Contusion of left forearm, initial encounter; M25.412 Effusion, left shoulder; X58.XXXA Exposure to other specified factors, initial encounter; I10 Essential (primary) hypertension; J45.909 Unspecified asthma, uncomplicated; E03.9 Hypothyroidism, unspecified; F17.200 Nicotine dependence, unspecified, uncomplicated; Z88.8 Allergy status to other drugs, medicaments and biological substances; Z91.030 Bee allergy status; Z79.899 Other long term (current) drug therapy
CPT/HCPCS: 76881; 80053; 82550; 85025; 85651; 96374; 99284-25; J1170; J7040

== ENCOUNTER 2020-08-22 20:46 | Inpatient (IN) | payer MEDICARE, OTHER ==
[~2020-08-22] VITALS: Ht 162.6 cm; Wt 92.2 kg
--- OUTSIDE RECORDS SUMMARY | 2020-08-22 20:48 | XMS ---
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 CRITERIA MET - [facility] - Has Care Guidelines - Group Notification - 6 ED Visits in 6 Months - PDMP - [facility] - 2 Visits in 30 Days CARE PROVIDERS JUDY EDWARDS Internal Medicine: Pulmonary Disease 09/05/2018-Current PHONE: Unknown Shawn has no Care Guidelines for this patient. Care History Medical/Surgical 04/09/2019 [facility] Patient still has not set follow up visit with PCP.\T\nbsp; Left voice mail for call back.\T\nbsp; Patient returned call.\T\nbsp; Follow up visit scheduled with Dr. Nielson on 04/19/2019 at 2:00pm 04/03/2019 [facility] Appropriate use of ED.\T\nbsp;\T\nbsp;Patient\T\nbsp;still needs to schedule follow\T\nbsp;up with PCP. \T\nbsp; 09/05/2018 [facility] - Patient is currently established with [facility]. If patient is seen in the ED during business hours. Please contact CHWs at [facility]. Care Recommendation: If this patient [...] care. E.D. VISIT COUNT (12 MO.) [address] Karen Garcia 7 TERRA Soto TOTAL 8 NOTE: Visits indicate total known visits. ED/UCC VISIT TRACKING (12 MO.) 08/22/2020 20:47 [facility] [place] TYPE: Emergency COMPLAINT: - SOB 08/01/2020 15:12 [facility] [place] TYPE: Emergency COMPLAINT: - LT ARM PAIN/NO INJURY DIAGNOSES: - Allergy status to other drugs, medicaments and biological substances - Pain in left upper arm - Exposure to other specified factors, initial encounter - Contusion of left forearm, initial encounter - Essential (primary) hypertension - Unspecified asthma, uncomplicated - Nicotine dependence, unspecified, uncomplicated - Effusion, left shoulder - Other half-way (current) drug therapy - Bee allergy status - Contusion of left upper arm, initial encounter - Hypothyroidism, unspecified 07/20/2020 13:11 [facility] Karen SALMERON TYPE: Emergency DIAGNOSES: - rash, cough, covid shot reaction - Arm Pain - Pain in left arm - Rash - Effusion, left shoulder 07/02/2020 08:30 [facility] [place] TYPE: Emergency COMPLAINT: - L ARM PAIN DIAGNOSES: - Pain in left upper arm - Essential (primary) hypertension - Hypothyroidism, unspecified - Nicotine dependence, unspecified, uncomplicated - Pain in left arm - Other terminal manager (current) drug therapy - Bee allergy status - Allergy status to other drugs, medicaments and biological substances - Unspecified asthma, uncomplicated 07/01/2020 15:34 [facility] [place] TYPE: Emergency COMPLAINT: - L ARM PAIN 06/23/2020 21:27 [facility] [place] TYPE: Emergency COMPLAINT: - L SHOULDER PAIN/ NO INJ 03/08/2020 15:34 [facility] [place] TYPE: Emergency COMPLAINT: - KNEE PAIN DIAGNOSES: - Other terminal manager (current) drug therapy - Pain in right knee - Bee allergy status - Nicotine dependence, unspecified, uncomplicated - Hypothyroidism, unspecified - Allergy status to other drugs, medicaments and biological substances - Unspecified asthma, uncomplicated - Allergy status to other drugs, medicaments and biological substances - Essential (primary) hypertension 09/14/2019 18:10 [facility] [place] TYPE: Emergency COMPLAINT: - WRIST PAIN, INJ DIAGNOSES: - Allergy status to other drugs, medicaments and biological substances - Nicotine dependence, unspecified, uncomplicated - Unspecified sprain of left wrist, initial encounter - Pain in left wrist - Exposure to other specified factors, initial encounter - Other terminal manager (current) drug therapy - Essential [...] Presence of neurostimulator - Essential (primary) hypertension [email or web address]
--- NOTE | 2020-08-22 23:22 | EKG ---
[facility] [address] [facility] [place], [place] [address] Signed Sinus tachycardia Otherwise normal ECG When compared with ECG of 27-SEP-2019 12:01, No significant change was found Confirmed by VANIA CUNNINGHAM MD ([id number]) on 08/22/2020 11:22:22 PM Electronically Signed By: VANIA CUNNINGHAM MD 08/22/20 232 PATIENT NAME: ALISAALFREDO Electrocardiogram DATE OF : 45 PHYSICIAN: VANIA CUNNINGHAM MD REPORT #: [id number] REPORT IS CONFIDENTIAL AND NOT TO BE RELEASED WITHOUT AUTHORIZATION
[2020-08-22] MEDS ORDERED: LISINOPRIL-HCT1 EAC2 PO (23:46)
[2020-08-23] MEDS ORDERED: CELECOXIB200 MG PO (09:57)
[2020-08-23] MEDS ORDERED: DICLOFENAC SOD100 G1 TOP (09:57)
[2020-08-23] MEDS ORDERED: PEG3350510 GM PO (09:58)
[2020-08-25] MEDS ORDERED: NYSTATIN15 GM TOP (10:17)
[2020-08-25] MEDS ORDERED: FERROUS GLUCON324 M1 PO (10:18)
--- NOTE | 2020-08-25 18:08 | EKG ---
[facility] [address] [facility] [place] [address] Signed Supraventricular tachycardia Cannot rule out Anterior infarct , age undetermined Marked ST abnormality, possible lateral subendocardial injury Abnormal ECG When compared with ECG of 22-AUG-2020 20:56, ST now depressed in Inferior leads T wave amplitude has decreased in Inferior leads Confirmed by JASBIR WOODS MD ([id number]) on 08/25/2020 6:08:03 PM Electronically Signed By: JASBIR WOODS MD 08/25/20 1808 PATIENT NAME: ALFREDO CUELLAR Goivany Electrocardiogram DATE OF : 45 PHYSICIAN: JASBIR WOODS MD REPORT #: [id number] REPORT IS CONFIDENTIAL AND NOT TO BE RELEASED WITHOUT AUTHORIZATION
--- NOTE | 2020-09-04 10:25 | EKG ---
[facility] [address] [place] [address] Signed Sinus rhythm with 1st degree AV block Otherwise normal ECG When compared with ECG of 25-AUG-2020 09:28, [place] interval has increased Vent. rate has decreased BY [address] no longer depressed in Inferior leads ST no longer depressed in Lateral leads Confirmed by VANIA CUNNINGHAM MD ([id number]) on 09/04/2020 10:24:52 AM Electronically Signed By: VANIA CUNNINGHAM MD 09/04/20 1025 PATIENT NAME: MARIO CUELLARBriana Adair Electrocardiogram DATE OF : 45 PHYSICIAN: VANIA CUNNINGHAM MD REPORT #: [id number] REPORT IS CONFIDENTIAL AND NOT TO BE RELEASED WITHOUT AUTHORIZATION
[2020-09-04] MEDS ORDERED: NICOTINE LOZENGE4 MG BUCCAL (12:16)
[2020-09-04] MEDS ORDERED: DILTIAZEM 24HR120 MG PO (12:18)
[2020-09-04] MEDS ORDERED: ELIQUIS5 MG PO (12:18)
[2020-09-04] MEDS ORDERED: AMITRIPTYLINE100 MG PO (12:19)
[2020-09-04] MEDS ORDERED: PREDNISONE10 MG PO (12:20)
[2020-09-04] MEDS ORDERED: GLIPIZIDE ER2.5 MG PO (12:20)
[2020-09-04] MEDS ORDERED: FLUCONAZOLE200 MG PO (12:21)
[2020-09-04] MEDS ORDERED: FERROUS SULFAT325 MG PO (12:23)
[2020-09-04] MEDS ORDERED: VENTOLIN HFA18 GM INH (15:54)
[2020-09-04] MEDS ORDERED: GLUCOSE TEST S1 EACH MISC (16:45)
[2020-09-04] MEDS ORDERED: 1ST TIER UNILE1 EAC1 MISC (16:46)
[2020-09-04] MEDS ORDERED: ALCOH-WIPE1 EACH MISC (16:46)
[2020-09-04] MEDS ORDERED: ACCU-CHEK GUID1 EAC3 MISC (16:47)
== END 2020-09-04 17:35 | disposition home or self-care (01) | DRG 177 ==
LOC: ED 20:46 → MS 23:01 → CCU 08-25 09:55 → MS 08-29 13:46
PROVIDERS: Internal Medicine; ADMIT Internal Medicine; ATTEND Internal Medicine
PROC: 05HB33Z Insertion of Infusion Device into Right Basilic Vein, Percutaneous Approach (ICD-10-PCS; principal; 2020-08-27 11:45)
PROC: 30233N1 Transfusion of Nonautologous Red Blood Cells into Peripheral Vein, Percutaneous Approach (ICD-10-PCS; 2020-09-04)
DX: B38.2 Pulmonary coccidioidomycosis, unspecified (principal); J96.01 Acute respiratory failure with hypoxia; J44.1 Chronic obstructive pulmonary disease with (acute) exacerbation; Z20.822 Contact with and (suspected) exposure to COVID-19; I48.0 Paroxysmal atrial fibrillation; I10 Essential (primary) hypertension; E03.9 Hypothyroidism, unspecified; G89.4 Chronic pain syndrome; M25.512 Pain in left shoulder; F17.210 Nicotine dependence, cigarettes, uncomplicated; F39 Unspecified mood [affective] disorder; G25.81 Restless legs syndrome; D50.9 Iron deficiency anemia, unspecified; K21.9 Gastro-esophageal reflux disease without esophagitis; R73.9 Hyperglycemia, unspecified; Z88.8 Allergy status to other drugs, medicaments and biological substances; Z79.899 Other long term (current) drug therapy; Z96.82 Presence of neurostimulator
CPT/HCPCS: 36415; 36600; 71045; 71260; 80048; 80053; 80202; 82607; 82728; 82746; 82803; 83540; 83605; 83735; 83880; 84439; 84443; 84466; 84484; 85007; 85025; 85045; 85651; 86003; 86038; 86200; 86331; 86431; 86606; 86635; 87040; 87070; 87077; 87106; 87186; 87205; 87327; 87449; 87899; 93005; 93010; 93306; 94640; 94668; 94760; 94799; 96374; 96375; 97116; 97162; 97165; 99285-25; C1751; C9803; J0692; J0696; J1650; J1815; J1956; J2405; J2543; J2920; J2930; J3370; J3475; J7030; J7060; J7120; J7121; J7512; Q0163; Q0177; Q9967; U0003

== ENCOUNTER 2020-09-17 10:30 | Emergency (ER) | payer MEDICARE, OTHER ==
[~2020-09-17] VITALS: Ht 162.6 cm; Wt 92.1 kg
[~2020-09-17 10:30] MED LIST changes: +1ST TIER UNILE1 EAC1 MISC; +ACCU-CHEK GUID1 EAC3 MISC; +ALCOH-WIPE1 EACH MISC; +AMITRIPTYLINE100 MG PO; +DICLOFENAC SOD100 G1 TOP; +DILTIAZEM 24HR120 MG PO; +ELIQUIS5 MG PO; +FERROUS GLUCON324 M1 PO; +FERROUS SULFAT325 MG PO; +FLUCONAZOLE200 MG PO; +GLIPIZIDE ER2.5 MG PO; +GLUCOSE TEST S1 EACH MISC; +NICOTINE LOZENGE4 MG BUCCAL; +NYSTATIN15 GM TOP; +PEG3350510 GM PO
--- OUTSIDE RECORDS SUMMARY | 2020-09-17 10:32 | XMS ---
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 CRITERIA MET - Group Notification - [facility] - Has Care Guidelines - 6 ED Visits in 6 Months - PDMP - [facility] - 2 Visits in 30 Days CARE PROVIDERS JUDY EDWARDS Internal Medicine: Pulmonary Disease 09/05/2018-Current PHONE: Unknown Shawn has no Care Guidelines for this patient. Care History Medical/Surgical 04/09/2019 [facility] Patient still has not set follow up visit with PCP.\T\nbsp; Left voice mail for call back.\T\nbsp; Patient returned call.\T\nbsp; Follow up visit scheduled with Dr. Nielson on 04/19/2019 at 2:00pm 04/03/2019 [facility] Appropriate use of ED.\T\nbsp;\T\nbsp;Patient\T\nbsp;still needs to schedule follow\T\nbsp;up with PCP. \T\nbsp; 09/05/2018 [facility] - Patient is currently established with [facility]. If patient is seen in the ED during business hours. Please contact CHWs at [facility]. Care Recommendation: If this patient has had [...] care. E.D. VISIT COUNT (12 MO.) [address] Karen Garcia 7 TERRA Soto TOTAL 8 NOTE: Visits indicate total known visits. ED/UCC VISIT TRACKING (12 MO.) 09/17/2020 10:31 [facility] [place] TYPE: Emergency COMPLAINT: - SOB 08/22/2020 20:47 TER[facility] TYPE: Emergency COMPLAINT: - SOB 08/01/2020 15:12 TER[facility] TYPE: Emergency COMPLAINT: - LT ARM PAIN/NO INJURY DIAGNOSES: - Allergy status to other drugs, medicaments and biological substances - Pain in left upper arm - Exposure to other specified factors, initial encounter - Contusion of left forearm, initial encounter - Essential (primary) hypertension - Unspecified asthma, uncomplicated - Nicotine dependence, unspecified, uncomplicated - Effusion, left shoulder - Other retirement (current) drug therapy - Bee allergy status - Contusion of left upper arm, initial encounter - Hypothyroidism, unspecified 07/20/2020 13:11 [facility] Karen SALMERON TYPE: Emergency DIAGNOSES: - [...] - Pain in left arm - Other retirement (current) drug therapy - Bee allergy status - Allergy status to other drugs, medicaments and biological substances - Unspecified asthma, uncomplicated 07/01/2020 15:34 [facility] [place] TYPE: Emergency COMPLAINT: - L ARM PAIN 06/23/2020 21:27 [facility] [place] TYPE: Emergency COMPLAINT: - L SHOULDER PAIN/ NO INJ 03/08/2020 15:34 [facility] [place] TYPE: Emergency COMPLAINT: - KNEE PAIN DIAGNOSES: - Other retirement (current) drug therapy - Pain in right knee - Bee allergy status - Nicotine dependence, unspecified, uncomplicated - Hypothyroidism, unspecified - Allergy status to other drugs, medicaments and biological substances - Unspecified asthma, uncomplicated - Allergy status to other drugs, medicaments and biological substances - Essential (primary) hypertension INPATIENT VISIT TRACKING (12 MO.) 08/22/2020 23:01 [facility] [place] TYPE: Medical Surgical COMPLAINT: - PNEUMONIA TELE DIAGNOSES: - Other oil heaterman (current) drug therapy - Nicotine dependence, cigarettes, uncomplicated - Presence of neurostimulator - Restless legs syndrome - Pneumonia, unspecified organism - Chronic obstructive pulmonary disease with (acute) exacerbation - Chronic pain syndrome - Allergy status to other drugs, medicaments and biological substances - Pain in left shoulder - Essential (primary) hypertension - Paroxysmal atrial fibrillation - Hypothyroidism, unspecified - Iron deficiency anemia, unspecified - Acute respiratory failure with hypoxia - Gastro-esophageal reflux disease without esophagitis - Pulmonary coccidioidomycosis, unspecified - Hyperglycemia, unspecified - Unspecified mood [affective] disorder 06/23/2020 21:28 [facility] [place] TYPE: Observation [...] Presence of neurostimulator - Essential (primary) hypertension [email or web address]
--- NOTE | 2020-09-18 10:29 | EKG ---
[facility] [address] [facility] [place] [address] Signed Normal sinus rhythm Minimal voltage criteria for LVH, may be normal variant Inferior infarct , age undetermined Abnormal ECG When compared with ECG of 04-SEP-2020 05:57, [place] interval has decreased Inferior infarct is now present Confirmed by OHRTENCIA HAYNES DO ([id number]) on 09/18/2020 10:28:48 AM Electronically Signed By: HORTENCIA HAYNES DO 09/18/20 1029 PATIENT NAME: ALISAALFREDO Adair Electrocardiogram DATE OF : 45 PHYSICIAN: HORTENCIA HAYNES DO REPORT #: [id number] REPORT IS CONFIDENTIAL AND NOT TO BE RELEASED WITHOUT AUTHORIZATION
== END 2020-09-17 12:43 | disposition home or self-care (01) ==
LOC: ED 10:30
DX: J44.0 Chronic obstructive pulmonary disease with (acute) lower respiratory infection (principal); B38.0 Acute pulmonary coccidioidomycosis; I10 Essential (primary) hypertension; J45.909 Unspecified asthma, uncomplicated; E03.9 Hypothyroidism, unspecified; Z88.8 Allergy status to other drugs, medicaments and biological substances; Z91.030 Bee allergy status; Z79.899 Other long term (current) drug therapy
CPT/HCPCS: 71045; 80053; 80500; 83735; 84484; 85007; 85025; 93005; 93010; 94640; 94761; 99285-25

== ENCOUNTER 2020-10-10 15:47 | Inpatient (IN) | payer MEDICARE, OTHER ==
[~2020-10-10] VITALS: Ht 162.6 cm; Wt 88.6 kg
--- OUTSIDE RECORDS SUMMARY | 2020-10-10 15:48 | XMS ---
PreManage Notification: ALFREDO CUELLAR Security Supervisor Mapping Events 1 event(s) in the past 18 months Most recent security events: Elopement at [facility] 07/01/2020 15:34 - Other Details: PATIENT LWBS. CRITERIA MET - Group Notification - PDMP - [facility] - 2 Visits in 30 Days - 6 ED Visits in 6 Months CARE PROVIDERS JASBIR WOODS Internal Medicine 09/22/2020-Current PHONE: [phone] JUDY EDWARDS Internal Medicine: Pulmonary Disease 09/05/2018-Current PHONE: Unknown Shawn has no Care Guidelines for this patient. Care History Medical/Surgical 04/09/2019 [facility] Patient still has not set follow up visit with PCP.\T\nbsp; Left voice mail for call back.\T\nbsp; Patient returned call.\T\nbsp; Follow up visit scheduled with Dr. Nielson on 04/19/2019 at 2:00pm 04/03/2019 [facility] Appropriate use of ED.\T\nbsp;\T\nbsp;Patient\T\nbsp;still needs to schedule follow\T\nbsp;up with PCP. \T\nbsp; 09/05/2018 [facility] - Patient is currently established with [facility]. If patient is seen in the ED during business hours. Please contact CHWs at [facility]. Care Recommendation: If this [...] care. E.D. VISIT COUNT (12 MO.) [address] Karen Garcia 8 [facility]. TOTAL 9 NOTE: Visits indicate total known visits. ED/UCC VISIT TRACKING (12 MO.) 10/10/2020 15:47 [facility] [place] TYPE: Emergency COMPLAINT: - SHORTNESS OF BREATH 09/17/2020 10:31 [facility] [place] TYPE: Emergency COMPLAINT: - SOB DIAGNOSES: - Hypothyroidism, unspecified - Unspecified asthma, uncomplicated - Chronic obstructive pulmonary disease with (acute) lower respiratory infection - Allergy status to other drugs, medicaments and biological substances - Other shelter (current) drug therapy - Acute pulmonary coccidioidomycosis - Essential (primary) hypertension - Bee allergy status - Shortness of breath 08/22/2020 20:47 [facility] [place] TYPE: Emergency [...] uncomplicated - Effusion, left shoulder - Other shelter (current) drug therapy - Bee allergy status - Contusion of left upper arm, initial encounter - Hypothyroidism, unspecified [facility] DIAGNOSES: - rash, cough, covid shot reaction - Arm Pain - Pain in left arm - Rash - Effusion, left shoulder 07/02/2020 08:30 [facility] [place] TYPE: Emergency COMPLAINT: - L ARM PAIN DIAGNOSES: - Pain in left upper arm - Essential (primary) hypertension - Hypothyroidism, unspecified - Nicotine dependence, unspecified, uncomplicated - Pain in left arm - Other shelter (current) drug therapy - Bee allergy status - Allergy status to other drugs, medicaments and biological substances - Unspecified asthma, uncomplicated 07/01/2020 15:34 [facility] [place] TYPE: Emergency COMPLAINT: - L ARM PAIN 06/23/2020 21:27 [facility] [place] TYPE: Emergency COMPLAINT: - L SHOULDER PAIN/ NO INJ 03/08/2020 15:34 [facility] [place] TYPE: Emergency COMPLAINT: - KNEE PAIN DIAGNOSES: - Other shelter (current) drug therapy - Pain in right [...] COMPLAINT: - PNEUMONIA TELE DIAGNOSES: - 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
--- NOTE | 2020-10-10 21:00 | NUR ---
REPORT RECIEVED FROM RAW JUICE WEIGHER. PT TRANSPORTED VIA STRETCHER FROM THE ER TO THE CCU ON BIPAP AND RECORDS MANAGEMENT ASSOCIATE. DAUGHTER ACCOMPANIED PATIENT DURING TRANSPORT.
--- NOTE | 2020-10-10 22:00 | NUR ---
INITIAL ASSESSMENT COMPLETED. IV BOULSES NOW INFUSING PER MD ORDER. BLOOD DRAWN AND SENT TO LAB
--- NOTE | 2020-10-10 22:02 | NUR ---
PATIENT NOW ON CPAP 15 FIO2 = 60%. SATURATIONS IN THE HIGH 90S. LEVOPHED DRIP TITRATED DOWN TO 6 MCG/MIN TO KEEP BLOOD PRESSURE IN RANGE. IV FLUID BOLUS AND ABX INFUSING. DAUGHTER AT BEDSIDE. THIS RN REMAINS AT BEDSIDE.
--- NOTE | 2020-10-10 22:35 | NUR ---
LEVOPHED DRIP TITRATED DOWN TO 4 MCG/MIN (SEE EMAR). IV FLUID BOLUSES CONTINUE TO INFUSE. PATIENT AT 100 PERCENT ON CPAP. RESPIRATIONS EVEN AND UNLABORED. THIS RN REMAINS AT BEDSIDE. WILL CONTINUE TO MONITOR.
--- NOTE | 2020-10-10 23:04 | NUR ---
PT ONLY MADE 30 ML OF URINE IN THE LAST HOUR, LR BOLUSES ALMOST FINISHED INFUSING. POTASSIUM NOW INFUSING INTO FEMORAL LINE. LEVOPHED DRIP MAINTAINED AT 4 MC/MIN. DR WOODS AWARE OF LOW URINE OUTPUT. NO NEW ORDERS WILL CONTINUE TO MONITOR.
--- NOTE | 2020-10-10 23:26 | NUR ---
NOREPI TURNED OFF AT THIS TIME. PT GIVEN A BREAK FROM CPAP, WASHED FACE AND GIVEN A SWAB. SPO2 = 82 WITH EXERTION. BACK ON CPAP, PT NOW BACK UP TO 100 PERCENT
--- NOTE | 2020-10-10 23:30 | NUR ---
PT WAS INCONTINENT OF A SMALL AMOUNT STOOL. TWO PERSON ASSIST TO PROVIDE INCONTINENT CARE, PATIENT REPOSITIONED IN BED. IV FLUIDS, POTASSIUM AND ABX CONTINUE TO INFUSE.
--- NOTE | 2020-10-11 00:20 | NUR ---
IV LEVOPHED RESTARTED AT 4 MCG/MIN AT THIS TIME TO MAINTAIN BLOOD PRESSURES. PT REAMINS ALERT AND ORIENTED X3. THIS RN REMAINS AT BEDSIDE.
--- NOTE | 2020-10-11 00:55 | NUR ---
PT REQUESTING A BREAK FROM WEARING CPAP. PLACED ON 5 L NC AT THIS TIME. SPO2 = 95%, RESPIRATIONS EVEN BUT LABORED. LEVOPHED TITRATED TO MAINTAIN BLOOD PRESSURE (SEE EMAR). WILL CONTINUE TO MONITOR.
--- NOTE | 2020-10-11 01:30 | NUR ---
PT BACK ON CPAP AT THIS TIME.
--- NOTE | 2020-10-11 02:55 | NUR ---
pt back on nasal cannula at this time. repositioned in bed. levophed continues to infuse at 2 mcg/min. iv fluids, potassium, and magnesium still infusing. non used ports on femoral line are heparin locked. this RN remains at bedside.
--- NOTE | 2020-10-11 03:16 | NUR ---
DR WOODS UPDATED ON PTS POOR URINE OUTPUT. ORDERS RECIEVED (SEE EMAR)
--- NOTE | 2020-10-11 03:32 | NUR ---
500 ml lr bolus now infusing. LEVOPHED DRIP TITIRATED UP TO 4 MCG/MIN TO MAINTAIN BLOOD PRESSURE. WILL CONITNTUE TO CLOSELY MONITOR
--- NOTE | 2020-10-11 04:58 | NUR ---
PT FEELS SOB, PLACED ON CPAP. NO OTHER NEEDS AT THIS TIME. CALL LIGHT IN REACH.
--- NOTE | 2020-10-11 05:21 | NUR ---
PT AWAKE IN ROOM WATCHING TELEVISION. SPO2 = 100% ON CPAP. CALL LIGHT WITHIN REACH. DENIES FURTHER NEEDS AT THIS TIME.
--- NOTE | 2020-10-11 05:29 | NUR ---
pt now on 8 l Oxymask. This RN in room with patient
--- NOTE | 2020-10-11 05:33 | NUR ---
levophed placed on standby at this time.
--- NOTE | 2020-10-11 05:45 | NUR ---
blood drawn off of central line for lab. 10 cc wasted
--- NOTE | 2020-10-11 06:02 | NUR ---
PT NOW UP IN RECLINER ON CPAP. MHQ6=[id number] PERCENT. PT STATES SHE FEELS COMFORTABLE. IV FLUIDS INFUSING, CALL LIGHT WITHIN REACH. DENIES FURTHER NEEDS AT THIS TIME.
--- NOTE | 2020-10-11 06:35 | NUR ---
LEVOPHED DRIP RESTARTED AT 4 MCG/MIN TO MAINTAIN ADEQUATE BLOOD PRESSURE.
--- NOTE | 2020-10-11 07:30 | NUR ---
PATIENT SHIFT REPOTR RECIEVED FROM TUBE FORMER OPERATOR RN. PATIENT RECLINING IN THE CHAIR AT THIS TIME. PATIENT ON 4MCG/MIN LEVOPHED PER REPORT AND ON BIPAP. WILL CONTINUE TO CLOSELY MONITOR.
--- NOTE | 2020-10-11 07:53 | OR ---
[facility] [address] [place], [place] [address] Signed DATE OF OPERATION: 10/10/2020 SURGEON: Juan Gutierrez MD PREOPERATIVE DIAGNOSES: 1. Pneumonia. 2. Sepsis. POSTOPERATIVE DIAGNOSES: 1. Pneumonia. 2. Sepsis. PROCEDURE: Placement of right femoral triple-lumen catheter/central venous catheter. ESTIMATED BLOOD LOSS: None. INDICATIONS: Alfredo is a 75-year-old female, who presents to the emergency room hypotensive. She is found to have right-sided pneumonia and she is septic. She does have three central lines and is on pressors. I have been asked to come emergently to the ER to help place a central venous catheter given her ongoing ICU needs. She is on Eliquis because of her recent history of atrial fibrillation. Consequently, we decided to use the right femoral approach. I actually know her daughter and she is present. Alfredo currently is on CPAP and not able to sign a consent. Given the urgency of the situation, we were provided verbal consent by Alfredo and her daughter. I did explain to them the reason for the right femoral approach along with the risk including, but not limited to bleeding, infection, scarring, change in contour of the skin as well as infection of the catheter requiring removal. They had expressed understanding and wished to proceed. PROCEDURE NOTE: Alfredo was kept supine on her ER bed. We could palpate the right femoral artery, we went ahead and checked with the ultrasound and marked that appropriately. After this, the area was prepped and draped in the usual sterile fashion. Local anesthetic was copiously injected in and around the area. The right femoral vein was found on the 1st pass of the needle and the wire was able to feed without any resistance whatsoever. The track was dilated without any resistance whatsoever. The dilator curved in the appropriate direction. After this, the catheter was inserted over the wire without any resistance whatsoever. All three ports were able to draw and flush nonpulsatile dark Electronically Signed By: JUAN GUTIERREZ MD 10/11/20 0753 PATIENT NAME: ALFREDO CUELLAR OPERATIVE REPORT DATE OF : 45 REPORT #: [id number] PHYSICIAN: JUAN GUTIERREZ MD PCP: JASBIR WOODS MD REPORT IS CONFIDENTIAL AND NOT TO BE RELEASED WITHOUT AUTHORIZATION [address] [address] Signed venous blood. Each of the three ports were then flushed with saline. The catheter was then held in place with interrupted silk sutures. Dry plastic occlusive dressing was applied by nursing staff. Alfredo tolerated the procedure quite well with her daughter present. MD GIULIANA Paige/JENIFERL /[id number] cc: Juan Gutierrez MD Copies: UJAN GUTIERREZ MD ~ Electronically Signed By: JUAN GUTIERREZ MD 10/11/20 0753 PATIENT NAME: ALFREDO CUELLAR OPERATIVE REPORT DATE OF : 45 REPORT #: [id number] PHYSICIAN: JUAN GUTIERREZ MD PCP: JASBIR WOODS MD REPORT IS CONFIDENTIAL AND NOT TO BE RELEASED WITHOUT AUTHORIZATION
--- NOTE | 2020-10-11 08:30 | NUR ---
THIS RN IN TO ASSIST PATIENT BACK TO BED AFTER VITALS WERE STABLE. PATIENT ON 4MCG AND INCREASED UP TO 6MCG/MIN. WILL MONITOR BP. PATIENT ABLE TO STAND AND GET BACK TO BED. PATIENT IS WEAK, DIAPHORETIC, AND RR 28, PATIENT NOTED TO HAVE INCREASED WORK OF BREATHING OFF OF THE BIPAP ON 10L OXYMASK. PATIENTS BREATH SOUNDS ARE COARSE AND EXPIRATORY WHEEZE NTOED. PATIENT NOW REPOSITIONED AND RESTING IN BED AT THIS TIME ON BIPAP. PATIENT DENIES ANY OTHER NEEDS. WILL CONTINUE TO CLOSELY MONITOR. CALL LIGHT LAYING ON PATIENTS ABD.
--- NOTE | 2020-10-11 09:01 | EKG ---
[facility] [address] [facility] [place] [address] Signed Normal sinus rhythm Marked ST abnormality, possible lateral subendocardial injury Prolonged QT Abnormal ECG Confirmed by JASBIR WOODS MD ([id number]) on 10/11/2020 9:01:29 AM Electronically Signed By: JASBIR WOODS MD 10/11/20 0901 PATIENT NAME: ALISAALFREDO Electrocardiogram DATE OF : 45 PHYSICIAN: JASBIR WOODS MD REPORT #: [id number] REPORT IS CONFIDENTIAL AND NOT TO BE RELEASED WITHOUT AUTHORIZATION
--- NOTE | 2020-10-11 10:30 | NUR ---
PATIENT CALLED AND NEEDED A BREAK FROM BIPAP/CPAP. PATIENT ON 10L NC FOR APPROX 15 MINUTES. PATIENT ABLE TO HOLD HER SPO2 AT 92% ON THIS AMOUNT,BUT HER WORK OF BREATHING INCREASES SIGNIFICANTLY WITHOUT BEING ON CPAP/BIPAP. PATIENTS RR DOES REMAIN IN THE 30'S ON BIPAP/CPAP VS OXYMASK. WILL CONTINUE TO CLOSELY MONITOR.
[2020-10-11] MEDS ORDERED: CELECOXIB200 MG PO (10:54)
--- NOTE | 2020-10-11 11:20 | NUR ---
THIS PITCH FLAKER IN TO ASSIST WITH BEDBATH AND GOWN CHANGE. ERNESTINE/TOUSSAINT CARE COMPLETE. ELECTRODE LEADS REPLACED AND VITALS CHARTED. CALL LIGHT IN REACH.
--- NOTE | 2020-10-11 11:37 | NUR ---
MED REC COMLPLETE
--- NOTE | 2020-10-11 11:50 | NUR ---
PATIENT IN BED. AUTO SELF SERVICE STATION ATTENDANT SONIDO IN TO ASSIST PATIENT WITH A BED BATH.
--- NOTE | 2020-10-11 13:00 | NUR ---
CALLED MD TO UPDATE THAT PATIENT IS STILL ANXIOUS AND SEEMS TO BE WORKING HARDER TO BREATH. MD OVER TO SEE PATIENT AND DISCUSS PLAN OF CARE WITH PATIENT AND HER DAUGHTER.
--- NOTE | 2020-10-11 13:30 | NUR ---
MD DISCUSSED OPTIONS WITH PATIENT AND DETERMINED THE BEST COURSE OF ACTION FOR THE PATIENT WAS TO INTABATE. PATIENTS RR HAS BEEN UPPER 30'S AND PATIENT STATES SHE IS EXHAUSTED. PATIENT HAS REMAINED DIAPHORETIC ALL MORNING. PATIENT AND DAUGHTER AGREEABLE TO THIS PLAN. THIS RN AT THE BEDSIDE TO PREP FOR INTABATION. PATIENT IS CURRENTLY HOLDING OXYGEN AT 94% ON 75% FI02 ON CPAP. SUPERVISOR FARM EQUIPMENT MAINTENANCE RN HERE AND NOTIFIED.
--- NOTE | 2020-10-11 13:50 | NUR ---
STAFF AT THE BEDSIDE AT THIS TIME FOR INTABATION.
--- NOTE | 2020-10-11 15:12 | NUR ---
THIS RN HAS BEEN IN AT THE BEDSIDE SINCE INTABATION AT 1350. THIS RN AT THE BEDSIDE TITRATING MEDICATIONS FOR BOTH SEDATION AND BLOOD PRESSURE CONTROL. PATIENT IS NOW RESTING COMFORTABLY AT THIS TIME ON 60MCG/KG/MIN AND 8MCG/MIN LEVOPHED. PATIENT HAS HAD 1 DOSE OF FENTANYL 100MCG FOR PAIN CONTROL. PATIENTES DAUGHTER AT THE BEDSIDE FOR INTABATION AND UNTIL PATIENT WAS STABLE. WOODS IN WITH PATIENT AND ALSO WORKING ON PATIENT TRANSFER. RESTRAINTS IN PLACE FOR PATIENTS SAFETY OF ETT TUBE PLACEMENT. WILL CONTINUE TO CLOSELY MONITOR.
--- NOTE | 2020-10-11 15:59 | NUR ---
PATIENT RESTING. REVIEWED [facility] WITH MD WOODS. NO CHANGES AT THIS TIME. PROPOFOL AT 70MCG/KG/MIN AND LEVOPHED AT 6MCG/MIN. DOSE OF FENTANYL GIVEN FOR PATIENTS COMFORT AND FIGHTING THE TUBE. PATIENT MUCH MORE RELAXED NOW AT THIS TIME. CALLED AND UPDATED DAUGHTER RIYA THAT PATIENT WILL BE TRANSFERED TO [place]. WILL CALL PATIENTS SON BACK ONCE PATIENT LEAVES TO UPDATE ABOUT PATIENTS TIME OF ARRIVAL IN [place].
--- NOTE | 2020-10-11 16:45 | NUR ---
[facility] HERE AT 1605 AND TRANSITIONING ALL EQUIPMENT OVER TO THEIRS. PATIENT TRANSFERED [facility] WITH NO ISSUES. REPORT GIVEN TO [facility]. ALL QUESTIONS ANSWERED. NEW MEDICATION BOTTLES AND VANCO SENT WITH CREW CAUSE BOTTLES WERE ALMOST OUT. [employer] FRONT MAKER RN AND RT WALKED OUT WITH [facility] TO HELP TRANSFER PATIENT TO [facility]. NO FURTHER QUESTIONS. PATIENT LEFT AT THIS TIME.
--- NOTE | 2020-10-11 17:15 | NUR ---
THIS RN CALLED AND GAVE AN UPDATE TO PATIENTS SON AND CALLED AND GAVE REPORT TO NLEA DONNELLY AT [facility]. ALL QUESTIONS ANSWERED. NO OTHER NEEDS AT THIS TIME.
== END 2020-10-11 16:45 | disposition short-term general hospital (02) | DRG 871 ==
LOC: ED 15:47 → CCU 21:10
PROVIDERS: ADMIT Internal Medicine; ATTEND Internal Medicine
PROC: 06HY33Z Insertion of Infusion Device into Lower Vein, Percutaneous Approach (ICD-10-PCS; principal; 2020-10-10)
PROC: 3E043XZ Introduction of Vasopressor into Central Vein, Percutaneous Approach (ICD-10-PCS; 2020-10-10)
PROC: 0BH17EZ Insertion of Endotracheal Airway into Trachea, Via Natural or Artificial Opening (ICD-10-PCS; 2020-10-10)
PROC: 5A1935Z Respiratory Ventilation, Less than 24 Consecutive Hours (ICD-10-PCS; 2020-10-10)
PROC: 5A09457 Assistance with Respiratory Ventilation, 24-96 Consecutive Hours, Continuous Positive Airway Pressure (ICD-10-PCS; 2020-10-11)
DX: A41.9 Sepsis, unspecified organism (principal); R65.21 Severe sepsis with septic shock; J18.1 Lobar pneumonia, unspecified organism; Z16.24 Resistance to multiple antibiotics; E83.42 Hypomagnesemia; E87.6 Hypokalemia; I48.0 Paroxysmal atrial fibrillation; I10 Essential (primary) hypertension; E11.9 Type 2 diabetes mellitus without complications; K21.9 Gastro-esophageal reflux disease without esophagitis; E03.9 Hypothyroidism, unspecified; E78.5 Hyperlipidemia, unspecified; G89.4 Chronic pain syndrome; G25.81 Restless legs syndrome; M54.5 Low back pain; J45.909 Unspecified asthma, uncomplicated; Z79.01 Long term (current) use of anticoagulants; Z79.899 Other long term (current) drug therapy; F39 Unspecified mood [affective] disorder; Z96.651 Presence of right artificial knee joint; Z88.8 Allergy status to other drugs, medicaments and biological substances; Z91.030 Bee allergy status; Z87.891 Personal history of nicotine dependence; Z90.49 Acquired absence of other specified parts of digestive tract; Z98.890 Other specified postprocedural states; Z79.52 Long term (current) use of systemic steroids; Z79.84 Long term (current) use of oral hypoglycemic drugs; Z91.018 Allergy to other foods
CPT/HCPCS: 31500; 36600; 51702; 71045; 80053; 80500; 82803; 83605; 83735; 84484; 85007; 85025; 87040; 87103; 93005; 93010; 94002; 94640; 94660; 99285-25; C9113; C9803; J0692; J1100; J1450; J1650; J1815; J1956; J2185; J2405; J2704; J3010; J3370; J3475; J3480; J7030; J7060; J7120; J7121; Q0177; U0003